=== PATIENT | male | born 1950 | race Caucasian/White ===

== ENCOUNTER 2017-01-12 07:41 | Inpatient (IN) | payer BC ==
[2017-01-12] MEDS ORDERED: NITROGLYCERIN OINT 1 INCH/GM PACKET TOPICAL STA (07:49)
[2017-01-12] MEDS ORDERED: ASPIRIN 81 MG CHEW PO STA (07:49)
--- NOTE | 2017-01-12 07:52 | ED ---
General Adult HPI - General Stated complaint: CHEST PAIN Time Seen by Provider: 01/12/17 07:44 Source: patient, EMS, RN notes reviewed Mode of arrival: EMS Limitations: no limitations - History of Present Illness Initial comments: Patient is a pleasant 66-year-old male presenting to the emergency department complaining of chest discomfort. Onset of symptoms was around 6:15 this point. Comfort is mild at this time following aspirin and nitroglycerin. Discomfort was sharp in the sternal region. No radiation. No associated dyspnea or nausea. Patient was sweaty. Patient did have similar symptoms around a year ago with negative evaluation. - Related Data Home Medications Medication Instructions Recorded Confirmed Atenolol [Tenormin] 12.5 mg PO BID 06/03/16 06/16/16 Cetirizine HCl [Zyrtec] 10 mg PO HS 06/03/16 06/16/16 Cholecalciferol [Vitamin D3] 2,000 unit PO DAILY 06/03/16 06/16/16 Fish Oil/Dha/Epa [Fish Oil 1,200 1 cap PO DAILY 06/03/16 06/16/16 mg Fish Oil] Fluticasone/Vilanterol [Breo 1 puff INHALATION RT-DAILY 06/03/16 06/16/16 Ellipta 100-25 Mcg Inhaler] Losartan/Hydrochlorothiazide 1 tab PO DAILY 06/03/16 06/16/16 [Hyzaar 100-25 Tablet] Sertraline [Zoloft] 100 mg PO DAILY 06/03/16 06/16/16 Previous Rx's Medication Instructions Recorded Acetaminophen-Codeine 300-30mg 1 tab PO Q6H PRN #30 tablet 06/04/16 [Tylenol #3] Aspirin 81 mg PO DAILY chew 06/04/16 Mag Hydrox/Al Hydrox/Simeth 30 ml PO Q4HR PRN #0 cup 06/04/16 [Maalox] Nitroglycerin Sl Tabs [Nitrostat] 0.4 mg SUBLINGUAL Q5M PRN #25 tab 06/04/16 Omeprazole [PriLOSEC] 40 mg PO BID #60 capsule. 06/04/16 Allergies Allergy/AdvReac Type Severity Reaction Status Date / Time pseudoephedrine sulfate AdvReac Rapid Verified 01/12/17 08:18 [From Claritin-D] Heart Rate Review of Systems ROS Statement: Those systems with pertinent positive or pertinent negative responses have been documented in the HPI. ROS Other: All systems not noted in ROS Statement are negative. Constitutional: Denies: fever Eyes: Denies: eye pain ENT: Denies: ear pain Respiratory: Denies: cough, dyspnea Cardiovascular: Reports: chest pain. Denies: palpitations Endocrine: Denies: fatigue Gastrointestinal: Denies: abdominal pain Genitourinary: Denies: urgency Musculoskeletal: Denies: back pain Skin: Denies: rash Neurological: Denies: weakness Past Medical History Past Medical History: Asthma, Hypertension, Osteoarthritis (OA), Sleep Apnea/ CPAP/BIPAP Additional Past Medical History / Comment(s): Fell off a ladder, had Left hip and shoulder injury History of Any Multi-Drug Resistant Organisms: None Reported Past Surgical History: Adenoidectomy, Tonsillectomy Additional Past Surgical History / Comment(s): carpal tunnel; pil cyst on tailbone X2 Past Anesthesia/Blood Transfusion Reactions: No Reported Reaction Additional Past Anesthesia/Blood Transfusion Reaction / Comment(s): states diff to arouse sometimes Past Psychological History: Depression Smoking Status: Former smoker Past Alcohol Use History: Occasional Past Drug Use History: None Reported - Past Family History Father Family Medical History: CVA/TIA Additional Family Medical History / Comment(s): Glaucoma. Severe circulation problems Mother Family Medical History: Cancer Additional Family Medical History / Comment(s): Glucoma General Exam Limitations: no limitations General appearance: alert, in no apparent distress Head exam: Present: atraumatic Eye exam: Present: normal appearance, PERRL ENT exam: Present: normal oropharynx Neck exam: Present: normal inspection Respiratory exam: Present: normal lung sounds bilaterally Cardiovascular Exam: Present: regular rate, normal rhythm Expanded Peripheral pulses: 2+: Radial (R), Radial (L), Dorsalis Pedis (R), Dorsalis Pedis (L) GI/Abdominal exam: Present: soft. Absent: tenderness Extremities exam: Present: normal inspection. 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 ND 188. QRS 82. QTC 490. QTC 446. Left axis. Minimal voltage criteria for LVH. No acute ST change. Motion artifact is present. Medical Decision Making - Medical Decision Making Patient reevaluated and resting comfortably in bed. Discomfort did start to increase however has improved now with nitroglycerin paste. Patient and family updated on results and concerns. Case discussed in detail with Dr. wallace, who will admit for Dr. Bradley. - Lab Data Result diagrams: 01/12/17 07:55 01/12/17 07:55 Lab Results 01/12/17 01/12/17 01/12/17 Range/Units 07:55 07:55 07:55 WBC 7.8 (3.8-10.6) k/uL RBC 5.75 (4.30-5.90) m/uL Hgb 17.2 (13.0-17.5) gm/dL Hct 47.7 (39.0-53.0) % MCV 82.9 (80.0-100.0) fL MCH 29.8 (25.0-35.0) pg MCHC 36.0 (31.0-37.0) g/dL RDW 14.6 (11.5-15.5) % Plt Count 172 (150-450) k/uL Neutrophils % 68 % Lymphocytes % 21 % Monocytes % 5 % Eosinophils % 4 % Basophils % 1 % Neutrophils # 5.3 (1.3-7.7) k/uL Lymphocytes # 1.6 (1.0-4.8) k/uL Monocytes # 0.4 (0-1.0) k/uL Eosinophils # 0.3 (0-0.7) k/uL Basophils # 0.1 (0-0.2) k/uL Hyperchromasia Slight PT (9.0-12.0) sec INR (<1.1) APTT (22.0-30.0) sec Sodium 140 (137-145) mmol/L Potassium 3.5 (3.5-5.1) mmol/L Chloride 104 (98-107) mmol/L Carbon Dioxide 25 (22-30) mmol/L Anion Gap 11 mmol/L BUN 19 (9-20) mg/dL Creatinine 1.06 (0.66-1.25) mg/dL Est GFR (MDRD) Af Amer >60 (>60 ml/min/1.73 sqM) Est GFR (MDRD) Non-Af >60 (>60 ml/min/1.73 sqM) Glucose 126 H (74-99) mg/dL Calcium 9.3 (8.4-10.2) mg/dL Magnesium 2.0 (1.6-2.3) mg/dL Total Bilirubin 1.0 (0.2-1.3) mg/dL AST 27 (17-59) U/L ALT 41 (21-72) U/L Alkaline Phosphatase 71 (38-126) U/L Total Creatine Kinase 159 (55-170) U/L CK-MB (CK-2) 2.1 (0.0-2.4) ng/mL CK-MB (CK-2) Rel Index 1.3 Troponin I 0.055 H* (0.000-0.034) ng/mL Total Protein 6.6 (6.3-8.2) g/dL Albumin 4.1 (3.5-5.0) g/dL 01/12/17 Range/Units 07:55 WBC (3.8-10.6) k/uL RBC (4.30-5.90) m/uL Hgb (13.0-17.5) gm/dL Hct (39.0-53.0) % MCV (80.0-100.0) fL MCH (25.0-35.0) pg MCHC (31.0-37.0) g/dL RDW (11.5-15.5) % Plt Count (150-450) k/uL Neutrophils % % Lymphocytes % % Monocytes % % Eosinophils % % Basophils % % Neutrophils # (1.3-7.7) k/uL Lymphocytes # (1.0-4.8) k/uL Monocytes # (0-1.0) k/uL Eosinophils # (0-0.7) k/uL Basophils # (0-0.2) k/uL Hyperchromasia PT 10.6 (9.0-12.0) sec INR 1.0 (<1.1) APTT 24.2 (22.0-30.0) sec Sodium (137-145) mmol/L Potassium (3.5-5.1) mmol/L Chloride (98-107) mmol/L Carbon Dioxide (22-30) mmol/L Anion Gap mmol/L BUN (9-20) mg/dL Creatinine (0.66-1.25) mg/dL Est GFR (MDRD) Af Amer (>60 ml/min/1.73 sqM) Est GFR (MDRD) Non-Af (>60 ml/min/1.73 sqM) Glucose (74-99) mg/dL Calcium (8.4-10.2) mg/dL Magnesium (1.6-2.3) mg/dL Total Bilirubin (0.2-1.3) mg/dL AST (17-59) U/L ALT (21-72) U/L Alkaline Phosphatase (38-126) U/L Total Creatine Kinase (55-170) U/L CK-MB (CK-2) (0.0-2.4) ng/mL CK-MB (CK-2) Rel Index Troponin I (0.000-0.034) ng/mL Total Protein (6.3-8.2) g/dL Albumin (3.5-5.0) g/dL - Radiology Data Radiology results: image reviewed (Chest x-ray shows no acute process.) Critical Care Time Critical Care Time: Yes Total Critical Care Time: 34 Disposition Clinical Impression: Unstable angina pectoris Disposition: ADMITTED IP TO THIS [facility] Condition: Serious Time of Disposition: 09:06
[2017-01-12 08:21] LABS: Basophils # (A) 0.1 k/uL (0-0.2); Basophils % (A) 1 %; CH 30.9; CHCM 37.4; Eosinophils # (A) 0.3 k/uL (0-0.7); Eosinophils % (A) 4 %; HCT 47.7 % (39.0-53.0); HDW 3.19; HGB 17.2 gm/dL (13.0-17.5); Hyperchromasia Slight; Luc # (Auto) 0.16; Luc % (Auto) 2; Lymphocytes # (A) 1.6 k/uL (1.0-4.8); Lymphocytes % (A) 21 %; MCH 29.8 pg (25.0-35.0); MCV 82.9 fL (80.0-100.0); Mean Platelet Volume 7.9; Monocytes # (A) 0.4 k/uL (0-1.0); Monocytes % (A) 5 %; Neutrophils # (A) 5.3 k/uL (1.3-7.7); Neutrophils % (A) 68 %; RBC 5.75 m/uL (4.30-5.90); RDW 14.6 % (11.5-15.5); WBC 7.8 k/uL (3.8-10.6); WBC (Perox) 7.71
[2017-01-12 08:27] LABS: Partial Thromboplastin Time 24.2 sec (22.0-30.0); Prothrombin Time 10.6 sec (9.0-12.0)
--- NOTE | 2017-01-12 08:30 | XR ---
EXAMINATION TYPE: XR chest 2V DATE OF EXAM: 01/12/2017 8:25 AM COMPARISON: 06/03/2016 INDICATION: Chest pain diaphoresis TECHNIQUE: Single frontal view of the chest is obtained. FINDINGS: The heart size is normal. The pulmonary vasculature is normal. The lungs are clear. IMPRESSION: 1. No acute pulmonary process.
[2017-01-12 08:38] LABS: ALT 41 U/L (21-72); AST 27 U/L (17-59); Alkaline Phosphatase 71 U/L (38-126); Anion Gap 11 mmol/L; Blood Urea Nitrogen 19 mg/dL (9-20); Calcium 9.3 mg/dL (8.4-10.2); Carbon Dioxide 25 mmol/L (22-30); Chloride 104 mmol/L (98-107); Glucose 126 mg/dL (74-99); Non-African American GFR(MDRD) >60 (>60 ml/min/1.73 sqM); Potassium 3.5 mmol/L (3.5-5.1); Sodium 140 mmol/L (137-145); Total Protein 6.6 g/dL (6.3-8.2)
[2017-01-12 08:54] LABS: Creatine Kinase MB 2.1 ng/mL (0.0-2.4)
[2017-01-12 09:02] LABS: Troponin I 0.055 ng/mL (0.000-0.034)
[2017-01-12] MEDS ORDERED: HEPARIN SODIUM,PORCINE 5,000 UNIT/ML 1 ML VIAL IV PRN (09:06)
[2017-01-12] MEDS ORDERED: HEPARIN SODIUM,PORCINE 5,000 UNIT/ML 1 ML VIAL IV ONE (09:06)
[2017-01-12] MEDS ORDERED: HEPARIN SODIUM,PORCINE/D5W PMX 25,000 UNIT in DEXTROSE/WATER 1 500ML.BAG IV SCH (09:15)
[2017-01-12] MEDS: NITROGLYCERIN SL TABS 0.4 MG TAB SUBLINGUAL PRN ×2 (09:23→09:28)
[2017-01-12] MEDS ORDERED: MORPHINE SULFATE 4 MG/ML SYRINGE IVP STA (09:34)
--- NOTE | 2017-01-12 09:41 | ED ---
Medical Decision Making - Medical Decision Making Repeat EKG at 9:33 AM shows sinus bradycardia at 49. CA 182. QRS 92. QT 468. QTC 422. Normal axis. Normal QRS. ST elevation inferior as well as leads V3 to V 6. Some depression in aVL and leads V1 and V2. STEMI alert has been called. Cardiology has been paged. At 944 Dr. Keita is present and evaluating patient. - Lab Data Result diagrams: 01/12/17 07:55 01/12/17 07:55 Lab Results 01/12/17 01/12/17 01/12/17 Range/Units 07:55 07:55 07:55 WBC 7.8 (3.8-10.6) k/uL RBC 5.75 (4.30-5.90) m/uL Hgb 17.2 (13.0-17.5) gm/dL Hct 47.7 (39.0-53.0) % MCV 82.9 (80.0-100.0) fL MCH 29.8 (25.0-35.0) pg MCHC 36.0 (31.0-37.0) g/dL RDW 14.6 (11.5-15.5) % Plt Count 172 (150-450) k/uL Neutrophils % 68 % Lymphocytes % 21 % Monocytes % 5 % Eosinophils % 4 % Basophils % 1 % Neutrophils # 5.3 (1.3-7.7) k/uL Lymphocytes # 1.6 (1.0-4.8) k/uL Monocytes # 0.4 (0-1.0) k/uL Eosinophils # 0.3 (0-0.7) k/uL Basophils # 0.1 (0-0.2) k/uL Hyperchromasia Slight PT (9.0-12.0) sec INR (<1.1) APTT (22.0-30.0) sec Sodium 140 (137-145) mmol/L Potassium 3.5 (3.5-5.1) mmol/L Chloride 104 (98-107) mmol/L Carbon Dioxide 25 (22-30) mmol/L Anion Gap 11 mmol/L BUN 19 (9-20) mg/dL Creatinine 1.06 (0.66-1.25) mg/dL Est GFR (MDRD) Af Amer >60 (>60 ml/min/1.73 sqM) Est GFR (MDRD) Non-Af >60 (>60 ml/min/1.73 sqM) Glucose 126 H (74-99) mg/dL Calcium 9.3 (8.4-10.2) mg/dL Magnesium 2.0 (1.6-2.3) mg/dL Total Bilirubin 1.0 (0.2-1.3) mg/dL AST 27 (17-59) U/L ALT 41 (21-72) U/L Alkaline Phosphatase 71 (38-126) U/L Total Creatine Kinase 159 (55-170) U/L CK-MB (CK-2) 2.1 (0.0-2.4) ng/mL CK-MB (CK-2) Rel Index 1.3 Troponin I 0.055 H* (0.000-0.034) ng/mL Total Protein 6.6 (6.3-8.2) g/dL Albumin 4.1 (3.5-5.0) g/dL 01/12/17 Range/Units 07:55 WBC (3.8-10.6) k/uL RBC (4.30-5.90) m/uL Hgb (13.0-17.5) gm/dL Hct (39.0-53.0) % MCV (80.0-100.0) fL MCH (25.0-35.0) pg MCHC (31.0-37.0) g/dL RDW (11.5-15.5) % Plt Count (150-450) k/uL Neutrophils % % Lymphocytes % % Monocytes % % Eosinophils % % Basophils % % Neutrophils # (1.3-7.7) k/uL Lymphocytes # (1.0-4.8) k/uL Monocytes # (0-1.0) k/uL Eosinophils # (0-0.7) k/uL Basophils # (0-0.2) k/uL Hyperchromasia PT 10.6 (9.0-12.0) sec INR 1.0 (<1.1) APTT 24.2 (22.0-30.0) sec Sodium (137-145) mmol/L Potassium (3.5-5.1) mmol/L Chloride (98-107) mmol/L Carbon Dioxide (22-30) mmol/L Anion Gap mmol/L BUN (9-20) mg/dL Creatinine (0.66-1.25) mg/dL Est GFR (MDRD) Af Amer (>60 ml/min/1.73 sqM) Est GFR (MDRD) Non-Af (>60 ml/min/1.73 sqM) Glucose (74-99) mg/dL Calcium (8.4-10.2) mg/dL Magnesium (1.6-2.3) mg/dL Total Bilirubin (0.2-1.3) mg/dL AST (17-59) U/L ALT (21-72) U/L Alkaline Phosphatase (38-126) U/L Total Creatine Kinase (55-170) U/L CK-MB (CK-2) (0.0-2.4) ng/mL CK-MB (CK-2) Rel Index Troponin I (0.000-0.034) ng/mL Total Protein (6.3-8.2) g/dL Albumin (3.5-5.0) g/dL Disposition Clinical Impression: ST elevation myocardial infarction (STEMI) Disposition: ADMITTED IP TO THIS HOSP Condition: Critical
[2017-01-12] MEDS ORDERED: NITROGLYCERIN-D5W PMX 50 MG in DEXTROSE/WATER 1 250ML.BAG IV ONE ×2 (09:49→10:00)
--- NOTE | 2017-01-12 09:57 | P.CRDCN ---
History of Present Illness Consult date: 01/12/17 History of present illness: This is a 66-year-old gentleman with history of hypertensive cardiac vascular disease who was seen in May 2016 and hospital with chest pains. At the time symptoms are suggestive of either angina or peptic ulcer disease. Patient was supposed to have a stress test as an outpatient but did not have one done. He did have a GI evaluation and also gallbladder evaluation. Today patient came to the hospital with complaints of epigastric and lower sternal pain which was recurrent. His initial EKG at 7:00 did not reveal any acute changes however repeat EKG at 9:00 showed evidence of inferior wall [place] .Patient advised to have a cardiac catheterization for definitive diagnosis. Further recommendation will depend upon the findings on the cardiac cath. Review of Systems Not obtained Past Medical History Past Medical History: Asthma, Hypertension, Osteoarthritis (OA), Sleep Apnea/ CPAP/BIPAP Additional Past Medical History / Comment(s): Fell off a ladder, had Left hip and shoulder injury History of Any Multi-Drug Resistant Organisms: None Reported Past Surgical History: Adenoidectomy, Tonsillectomy Additional Past Surgical History / Comment(s): carpal tunnel; pil cyst on tailbone X2 Past Anesthesia/Blood Transfusion Reactions: No Reported Reaction Additional Past Anesthesia/Blood Transfusion Reaction / Comment(s): states diff to arouse sometimes Past Psychological History: Depression Smoking Status: Former smoker Past Alcohol Use History: Occasional Past Drug Use History: None Reported - Past Family History Father Family Medical History: CVA/TIA Additional Family Medical History / Comment(s): Glaucoma. Severe circulation problems Mother Family Medical History: Cancer Additional Family Medical History / Comment(s): Glucoma Medications and Allergies Home Medications Medication Instructions Recorded Confirmed Type Cetirizine HCl [Zyrtec] 10 mg PO HS 06/03/16 01/12/17 History Cholecalciferol [Vitamin D3] 5,000 unit PO DAILY 06/03/16 01/12/17 History Fish Oil/Dha/Epa [Fish Oil 1,200 1 cap PO DAILY 06/03/16 01/12/17 History mg Fish Oil] Fluticasone/Vilanterol [Breo 1 puff INHALATION RT-DAILY 06/03/16 01/12/17 History Ellipta 100-25 Mcg Inhaler] Losartan/Hydrochlorothiazide 1 tab PO DAILY 06/03/16 01/12/17 History [Hyzaar 100-25 Tablet] Sertraline [Zoloft] 100 mg PO DAILY 06/03/16 01/12/17 History Albuterol Inhaler [Ventolin Hfa 1 - 2 puff INHALATION RT-Q6H PRN 01/12/17 History Inhaler] Atenolol [Tenormin] 12.5 mg PO DAILY 01/12/17 01/12/17 History Diclofenac Sodium [Voltaren] 75 mg PO BID PRN 01/12/17 01/12/17 History Levothyroxine Sodium [Synthroid] 25 mcg PO DAILY 01/12/17 01/12/17 History Loratadine [Claritin] 10 mg PO DAILY PRN 01/12/17 01/12/17 History Omeprazole [PriLOSEC] 40 mg PO DAILY 01/12/17 01/12/17 History Allergies Allergy/AdvReac Type Severity Reaction Status Date / Time pseudoephedrine sulfate AdvReac Rapid Verified 01/12/17 08:18 [From Claritin-D] Heart Rate Physical Exam Vitals: Vital Signs Temp Pulse Resp BP Pulse Ox 01/12/17 09:42 45 L 22 163/94 96 01/12/17 09:30 48 L 16 158/91 97 01/12/17 09:22 44 L 18 197/107 01/12/17 09:11 97.8 F 48 L 16 153/79 92 L GENERAL EXAM: Patient is alert and oriented and doesn't appear to be in any acute distress HEENT: Normocephalic. Normal reaction of pupils, equal size, normal range of extraocular motion. No erythema or exudates in the throat. NECK: No masses, no nuchal rigidity. CHEST: No chest wall deformity. LUNGS: Equal air entry with no crackles or wheeze. HEART: S1 and S2 normal with no audible mumurs or gallops. Regular rhythm, femorals equal on both sides.. ABDOMEN: No hepatosplenomegaly, normal bowel sounds, no guarding or rigidity. SKIN: No rashes CENTRAL NERVOUS SYSTEM: No focal deficits. EXTREMITIES: No cyanosis, clubbing or edema. Results 01/12/17 07:55 01/12/17 07:55 Current Medications Generic Name Dose Route Start Last Admin Trade Name Freq PRN Reason Stop Dose Admin Aspirin 325 mg 01/13/17 09:00 Aspirin PO DAILY [facility] Heparin Sodium (Porcine) 0 unit 01/12/17 09:06 Heparin IV Q6HR PRN Low PTT Protocol Heparin Sodium/Dextrose 25,000 500 mls @ 20 mls/hr 01/12/17 09:15 01/12/17 09 :24 unit/ IV Solution IV 8.999 units/kg/hr .Q24H JAEL 20 mls/hr Protocol Administration 8.999 UNITS/KG/HR Nitroglycerin/Dextrose 50 mg/ 250 mls @ 1.5 mls/hr 01/12/17 09:49 01/12/17 09 :50 IV Solution IV 01/13/17 09:48 5 mcg/min .Q24H ONE 1.5 mls/hr Protocol Administration 5 MCG/MIN Nitroglycerin 1 inch 01/12/17 12:00 Nitro-Bid Oint TOPICAL Q6HR [facility] Nitroglycerin 0.4 mg 01/12/17 09:06 01/12/17 09:28 Nitrostat SUBLINGUAL 0.4 mg Q5M PRN Administration Chest Pain Sodium Chloride 10 ml 01/12/17 21:00 Saline Flush IV BID [facility] EKG Interpretations (text) Sinus rhythm with inferior wall WA Assessment and Plan (1) ST elevation myocardial infarction (STEMI) Status: Acute (2) Hypertension Status: Acute (3) Hypokalemia Status: Acute Plan: Procedure with cardiac catheterization with intention for primary intervention. Further examination depend upon the findings on the cath.
[2017-01-12] MEDS ORDERED: SODIUM CHLORIDE 0.9% 1,000 ML IV ONE (10:00)
[2017-01-12] MEDS ORDERED: SODIUM CHLORIDE 0.9% IV ONE (10:00)
[2017-01-12] MEDS ORDERED: ABCIXIMAB IV ONE (10:00)
[2017-01-12] MEDS ORDERED: LIDOCAINE 2% INJ 20 MG/ML SQ ONE ×2 (10:09→10:10)
[2017-01-12] MEDS: HYDROmorphone 2 MG/ML 1 ML SYRINGE IV ONE ×2 (10:13→10:54)
[2017-01-12] MEDS ORDERED: BIVALIRUDIN BOLUS 250 MG/50 ML IV ONE (10:13)
[2017-01-12] MEDS ORDERED: ATROPINE SULFATE 0.1 MG/ML 10ML SYRINGE IV ONE (10:14)
[2017-01-12] MEDS ORDERED: BIVALIRUDIN 250 MG in SODIUM CHLORIDE 0.9% 50 ML IV ONE (10:25)
[2017-01-12] MEDS: MIDAZOLAM 2 MG/2 ML VIAL IV ONE ×2 (10:25→10:38)
[2017-01-12] MEDS ORDERED: PRASUGREL 10 MG TAB PO ONE (10:28)
--- NOTE | 2017-01-12 10:31 | P.PCN ---
Date of Procedure: 01/12/17 Preoperative Diagnosis: Acute inferior wall myocardial infarction Postoperative Diagnosis: Total occlusion of the proximal RCA Procedure(s) Performed: Left heart catheterization without left ventriculography Description of Procedure: HISTORY: This is a 66-year-old gentleman with a history of hypertension and family history of ischemic heart disease, who came to the hospital with complaints of chest pain and EKG evidence of inferior wall AR. Patient is advised to have cardiac catheterization with the intention for primary intervention CONSENT:I have discussed the risks, benefits and alternative therapies for the above-mentioned procedure and for both sedation/analgesia as well as necessary blood product administration, if indicated, as they pertain to this patient. The patient has indicated understanding and acceptance of the risks and procedures discussed. PROCEDURE: Patient was brought to the lab in a fasting state. Patient was given some IV sedation. The right groin is infiltrated with lidocaine and right femoral artery was entered using Seldinger technique. A 6-Indonesian catheter was left in place and selective coronary arteriography was performed. Patient tolerated the procedure well. Patient is found to have total occlusion of proximal RCA ventriculography have stent placement by Dr. Godfrey. HEMODYNAMICS: The aortic pressure is 170/90. SELECTIVE CORONARY ARTERIOGRAPHY: LEFT MAIN: Short and patent THE LEFT ANTERIOR DESCENDING CORONARY ARTERY: This is a good caliber vessel with several diagonal branches. Appears to be free of any significant occlusive disease THE LEFT CIRCUMFLEX AND IS CORONARY ARTERY: This is a codominant vessel giving rise to good-sized OM branches and PLV branch. Appears to be free of any significant occlusive disease THE RIGHT CORONARY ARTERY:. This is a codominant vessel which is totally occluded in the proximal portion LEFT VENTRICULOGRAPHY: Not performed FINAL IMPRESSION: #1. Acute inferior wall AR #2. Total occlusion of the RCA # 3. Mild disease in the rest of the coronary system PLAN: Stent placement of the RCA PROGNOSIS: Fair
[2017-01-12] MEDS ORDERED: niCARdipine Syringe (1,000 mcg/10 mL) INTRACORON ONE (10:48)
[2017-01-12] MEDS ORDERED: IOHEXOL 350 MG/ML 100 ML BOTTLE INJ ONE (10:54)
[2017-01-12] MEDS ORDERED: LORATADINE 10 MG TAB PO PRN (11:09)
[2017-01-12] MEDS ORDERED: ETODOLAC 400 MG TAB PO PRN (11:09)
[2017-01-12] MEDS ORDERED: MAG HYDROX/AL HYDROX/SIMETH 30 ML CUP PO PRN ×2 (11:09→11:11)
[2017-01-12] MEDS ORDERED: NITROGLYCERIN SL TABS 0.4 MG TAB SUBLINGUAL PRN ×2 (11:09→11:11)
[2017-01-12] MEDS ORDERED: ZOLPIDEM 5 MG TAB PO PRN (11:11)
[2017-01-12] MEDS ORDERED: RX INFO: IV CONTRAST WAS GIVEN 1 EACH MISC MISCELLANE PRN (11:11)
[2017-01-12] MEDS ORDERED: ATROPINE SULFATE 0.1 MG/ML 10ML SYRINGE IV PRN (11:11)
[2017-01-12] MEDS ORDERED: SODIUM CHLORIDE 0.9% 1,000 ML IV SCH (11:15)
[2017-01-12] MEDS ORDERED: NITROGLYCERIN OINT 1 INCH/GM PACKET TOPICAL SCH (12:00)
[2017-01-12 17:39] LABS: Glucose,Whole Blood 140 mg/dL (75-99)
[2017-01-12] MEDS: BENZOCAINE/MENTHOL LOZENG 1 EACH LOZENGE MUCOUS MEM PRN ×2 (19:07→20:48)
[2017-01-12] MEDS: SYMBICORT 80-4.5 MCG INHALER INHALATION SCH (19:09)
[2017-01-12] MEDS: LORATADINE 10 MG TAB PO SCH (20:48)
[2017-01-12] MEDS: ATORVASTATIN 80 MG TAB PO SCH (20:48)
[2017-01-13 04:27] VITALS: RESP 18
[2017-01-13 06:33] LABS: Basophils # (A) 0.1 k/uL (0-0.2); Basophils % (A) 1 %; CH 30.2; CHCM 35.9; Eosinophils # (A) 0.3 k/uL (0-0.7); Eosinophils % (A) 4 %; HDW 3.16; HGB 16.2 gm/dL (13.0-17.5); Luc # (Auto) 0.11; Luc % (Auto) 1; Lymphocytes # (A) 1.7 k/uL (1.0-4.8); Lymphocytes % (A) 20 %; MCH 29.7 pg (25.0-35.0); MCHC 35.2 g/dL (31.0-37.0); MCV 84.4 fL (80.0-100.0); Monocytes # (A) 0.4 k/uL (0-1.0); Monocytes % (A) 5 %; Neutrophils # (A) 5.7 k/uL (1.3-7.7); Neutrophils % (A) 69 %; RBC 5.44 m/uL (4.30-5.90); RDW 14.5 % (11.5-15.5); WBC 8.2 k/uL (3.8-10.6); WBC (Perox) 8.52
[2017-01-13] MEDS: LEVOTHYROXINE 25 MCG TAB PO SCH (06:34)
[2017-01-13] MEDS: PANTOPRAZOLE 40 MG TABLET PO SCH (06:34)
[2017-01-13 06:42] LABS: Anion Gap 7 mmol/L; Blood Urea Nitrogen 17 mg/dL (9-20); Calcium 9.1 mg/dL (8.4-10.2); Carbon Dioxide 32 mmol/L (22-30); Chloride 100 mmol/L (98-107); Cholesterol 164 mg/dL (<200); Glucose 108 mg/dL (74-99); HDL Cholesterol 31 mg/dL (40-60); Magnesium 2.1 mg/dL (1.6-2.3); Non-African American GFR(MDRD) >60 (>60 ml/min/1.73 sqM); Phosphorous 3.1 mg/dL (2.5-4.5); Sodium 139 mmol/L (137-145); Triglycerides 183 mg/dL (<150)
[2017-01-13 07:06] LABS: Creatine Kinase MB 35.4 ng/mL (0.0-2.4); Troponin I 10.8 ng/mL (0.000-0.034)
[2017-01-13] MEDS: LOSARTAN-HCTZ 50-12.5 MG 1 EACH TAB PO SCH (07:50)
[2017-01-13] MEDS: ATENOLOL 12.5 MG TAB PO SCH (07:50)
[2017-01-13] MEDS: SERTRALINE 100 MG TAB PO SCH (07:50)
[2017-01-13] MEDS: CHOLECALCIFEROL 1,000 UNIT TAB PO SCH (07:50)
[2017-01-13] MEDS ORDERED: NON-FORMULARY DRUG (Fish Oil/Dha/Epa [Fish Oil 1,200 Mg Fish Oil] 1 CAP) PO SCH (09:00)
[2017-01-13] MEDS ORDERED: ASPIRIN 325 MG TAB PO SCH (09:00)
--- NOTE | 2017-01-13 09:41 | ECHOF ---
Referral Reason:Chest pain and elevated troponin MEASUREMENTS -------- HEIGHT: 180.3 cm WEIGHT: 111.1 kg BP: IVSd: 1.4 cm (0.6 - 1.1) LVIDd: 3.1 cm (3.9 - 5.3) LVPWd: 1.4 cm (0.6 - 1.1) IVSs: 1.8 cm LVIDs: 2.9 cm LVPWs: 1.4 cm Ao Diam: 3.0 cm (2.0 - 3.7) AV Cusp: 2.3 cm (1.5 - 2.6) LA Diam: 3.3 cm (2.7 - 3.8) MV EXCURSION: 18.807 mm (> 18.000) MV EF SLOPE: 84 mm/s (70 - 150) EPSS: 3.0 cm MV E Jerrod: 0.73 m/s MV DecT: 242 ms MV A Jerrod: 0.29 m/s MV E/A Ratio: 2.55 RAP: 5.00 mmHg RVSP: 9.27 mmHg FINDINGS -------- Sinus rhythm. This was a technically good study. There is moderate concentric left ventricular hypertrophy. Overall left ventricular systolic function is mild-moderately impaired with, an EF between 40 - 45 %. Inferiorlateral Hypokinesis The right ventricle is normal in size and function. The left atrial size is normal. The right atrium is normal in size. The aortic valve is trileaflet, and appears structurally normal. No aortic stenosis or regurgitation. There is trace mitral regurgitation. Trace tricuspid regurgitation present. The right ventricular systolic pressure, as measured by Doppler, is 9.27mmHg. Pulmonic valve appears structurally normal. The aortic root size is normal. The pericardium is normal. CONCLUSIONS -------- 1. Sinus rhythm. 2. There is trace mitral regurgitation. 3. Trace tricuspid regurgitation present. 4. The right ventricular systolic pressure, as measured by Doppler, is 9.27mmHg. 5. Pulmonic valve appears structurally normal. 6. The aortic root size is normal. 7. The pericardium is normal. 8. This was a technically good study. 9. There is moderate concentric left ventricular hypertrophy. 10. Overall left ventricular systolic function is mild-moderately impaired with, an EF between 40 - 45 %. 11. Inferiorlateral Hypokinesis 12. The right ventricle is normal in size and function. 13. The left atrial size is normal. 14. The right atrium is normal in size. 15. The aortic valve is trileaflet, and appears structurally normal. No aortic stenosis or regurgitation. SKIRT MAKER: Vianey Campos RDCS
[2017-01-13] MEDS: SYMBICORT 80-4.5 MCG INHALER INHALATION SCH ×2 (09:46→20:31)
[2017-01-13] MEDS: ASPIRIN 81 MG CHEW PO SCH (10:05)
--- NOTE | 2017-01-13 10:51 | PTCA ---
DATE OF SERVICE: 01/12/2017 PERFORMING PHYSICIAN: Janes Harris MD, mail delivery supervisor. PROCEDURE PERFORMED: 1. Aspiration thrombectomy from the right coronary artery. 2. Balloon angioplasty of the right coronary artery. 3. Successful stenting of the ( ) using 4.5 x 18 mm bare metal stent with a good angiographic result. INDICATION: This is a pleasant 66-year-old gentleman who sees Dr. Keita in the office as an outpatient, who presented to the hospital with chest discomfort and was diagnosed with acute inferior ST elevation myocardial infarction. He underwent a heart catheterization by Dr. Keita and was found to have occluded right coronary artery which seems to be an acute occlusion. The decision was made toward percutaneous coronary intervention. APPROACH: Right common femoral artery. COMPLICATIONS: None. LEVEL OF SEDATION: Moderate with a sedation length of about an hour. PROCEDURE DESCRIPTION: After diagnostic heart catheterization was performed by Dr. Keita, the decision was made toward emergent percutaneous coronary intervention. Anticoagulation was initiated using Angiomax. Subsequently, I took JR4 guide and the RCA was engaged. I crossed the acute total occlusion of the proximal RCA using a whisper wire. Subsequently, I did PTCA ballooning using 2.5 x 12 mm balloon. After that, I did aspiration thrombectomy from the right coronary artery and I was unable to extract any clots from the RCA. After that I did angioplasty using 3.5 x 12 mm balloon. I was able to restore the flow in the RCA after the second balloon angioplasty using a 3.5 mm balloon. Subsequently, I did deploy 4.5 x 18 mm bare metal stent, where the stent was positioned under fluoroscopy guidance and deployed under its nominal pressure. The following angiogram showed good angiographic result with a good flow in the RCA. The procedure was completed without any complication. POSTPROCEDURE MANAGEMENT: 1. Dual antiplatelet therapy. 2. Risk factor modification. 3. Follow up with the patient.
[2017-01-13] MEDS ORDERED: ACETAMINOPHEN TAB 325 MG TAB PO PRN ×2 (10:52→11:10)
[2017-01-13] MEDS: PRASUGREL 10 MG TAB PO SCH (11:11)
--- NOTE | 2017-01-13 11:38 | HP ---
DATE OF ADMISSION: 01/12/2017 PRESENTING COMPLAINT: Chest pain. HISTORY OF PRESENTING COMPLAINT: This is a very pleasant 66-year-old patient I came to see twice yesterday but patient has gone to lab engineer. Patient is followed by Dr. Bradley. Patient's chronic stable medical conditions include asthma, GERD, hypertension, osteoarthritis, sleep apnea, hypothyroid. Yesterday morning developed some chest pain, decided to go to work. There he became clammy then the pain went into the left shoulder, not feeling well. His work ( ) called 911. EMS gave him nitroglycerin to which he did feel a bit better. Patient then ruled in for an acute OR with ST elevation in inferior leads. Patient taken to the cardiac lab engineer when stenting of the RCA was carried out. Currently the patient is chest pain free. No shortness of breath. He has been out of bed to the bathroom. REVIEW OF SYSTEMS: CONSTITUTIONAL: None. HEENT: None. RESPIRATORY: None. CARDIOVASCULAR: As above. GASTROINTESTINAL: None. GENITOURINARY: None. MUSCULOSKELETAL: Pain in the joints. DERMATOLOGICAL: None. HEMATOLOGICAL: None. LYMPHATIC: None. PSYCHIATRY: None. NEUROLOGICAL: None. Past history of as asthma, GERD, hypertension, osteoarthritis, sleep apnea, hypothyroid, kidney stones, pneumonias in the past, elevated liver enzymes. PAST SURGICAL HISTORY: Adenoidectomy, tonsillectomy, bilateral carpal tunnel release, circumcision, vasectomy. SOCIAL HISTORY: . Works at [employer]. Smoked [id number] to 1984. Alcohol occasionally. Family history of colon cancer and eye disorder. HOME MEDICATIONS: 1. Claritin 10 mg daily p.r.n. 2. Zoloft 1 mg p.o. daily. 3. Prilosec 40 mg p.o. daily. 4. Nitrostat 0.4 sublingual q.5 p.r.n. 5. Maalox 30 mL p.o. q.4 p.r.n. 6. Hyzaar 100/25 one tablet p.o. daily. 7. Synthroid 25 mcg p.o. daily. 8. Breo Ellipta 1 puff daily. 9. Fish oil 1 capsule p.o. daily. 10. Voltaren 75 mg p.o. b.i.d. p.r.n. 11. Vitamin D3, 5000 units p.o. daily. 12. Zyrtec 10 mg p.o. q.h.s. 13. Tenormin 12.5 p.o. daily. 14. Aspirin 81 mg p.o. daily. 15. Ventolin HFA 1 to 2 puffs q.6 p.r.n. Allergies to CLARITIN-D, no true allergy causing only heart rate. ON EXAMINATION: VITAL SIGNS ON PRESENTATION: Temperature 98.3, pulse 49, respiration 18, blood pressure 169/84, pulse ox 96% on 2 L. GENERAL APPEARANCE: Well built, BMI of 37. Lying on the bed, comfortable. EYES: Pupils equal. Conjunctivae normal. HENT: Oral cavity normal. NECK: JVD is not raised. Mass not palpable. RESPIRATORY: Effort normal. LUNGS: Fair air entry. CARDIOVASCULAR: First and second sounds normal. No edema. ABDOMEN: Soft, nontender. Liver and spleen not palpable. LYMPHATIC: No lymph node palpable in neck or axillae. PSYCHIATRY: Alert and oriented x3. Mood affect normal. NEUROLOGICAL: Pupils equal. Cranial nerves grossly intact. Power and sensation grossly intact. INVESTIGATIONS: White count 7.8, hemoglobin 17.2, platelets 172. Potassium 3.5. BUN and creatinine normal. Troponin 0.055 and 10.8. LDL is 96. EKG shows ST elevation inferior leads. ASSESSMENT: 1. Acute ST elevation myocardial infarction with emergent stent to the right coronary artery. 2. Intermittent asthma. 3. Gastroesophageal reflux disease. 4. Essential hypertension. 5. Primary osteoarthritis of multiple joints. 6. Sleep apnea. 7. Hypothyroidism. 8. Depression, not otherwise specified. PLAN: Patient is status post intervention to the RCA. Patient is on aspirin, beta laurel, Lipitor. Patient encouraged to ambulate and see how he does. Patient also on Effient. Care was discussed with the patient.
--- NOTE | 2017-01-13 15:58 | P.PN ---
Subjective Principal diagnosis: STEMI This is a 66-year-old gentleman with a history of hypertensive cardiovascular disease. He was previously seen in the hospital beginning of this year with complaints of chest discomfort at that time symptoms were suggestive of either angina or peptic ulcer disease. The patient was recommended to undergo stress testing as an outpatient but failed to follow-up. He did undergo GI evaluation. The patient presented to the hospital this admission after going to work and noting chest discomfort that radiated to his left arm with walking. Upon presentation his initial EKG did not reveal any acute changes however repeat EKG at 9 AM at which time patient complained of severe chest discomfort showed evidence of ST elevated inferior wall [place] and patient was taken to the CVL. Patient underwent cardiac catheterization by Dr. Keita and aspiration thrombectomy from the right coronary artery with balloon angioplasty and successful stenting done by Dr. Harris. Upon examination, patient is resting comfortably in bed. He is pain-free. He has been encouraged to increase his activity level. Objective - Vital Signs Vital signs: Vital Signs Temp 97.4 F L 01/13/17 12:00 Pulse 56 L 01/13/17 12:00 Resp 18 01/13/17 12:00 BP 146/77 01/13/17 12:00 Pulse Ox 98 01/13/17 12:00 Intake & Output 01/12/17 01/13/17 01/13/17 18:59 06:59 18:59 Intake Total 1050 410 810 Output Total 800 1300 825 Balance 250 -890 -15 Weight 117 kg Intake: IV 1050 110 10 0.9% NS FLUSH 10 mL 10 10 Sodium Chloride 0.9% 1, 800 100 000 ml @ 100 mls/hr IV . Q10H JAEL Rx#:[id number] Oral 300 800 Output: Urine 800 1300 825 Other: Voiding Method Urinal Urinal Toilet Urinal # Voids 0 - Exam PHYSICAL EXAMINATION: HEENT: Head is atraumatic, normocephalic. Pupils equal, round. Neck is supple. There is no elevated jugular venous pressure. HEART EXAMINATION: Heart sounds regular, S1 and S2 normal. No murmur or gallop heard. CHEST EXAMINATION: Lungs are clear to auscultation and precussion. No chest wall tenderness is noted on palpation or with deep breathing. ABDOMEN: Soft, nontender. Bowel sounds are heard. No organomegaly noted. EXTREMITIES: 2+ peripheral pulses with no evidence of peripheral edema and no calf tenderness noted. Right groin puncture site soft without ecchymosis or hematoma.. NEUROLOGIC patient is awake, alert and oriented x3. . - Labs CBC & Chem 7: 01/13/17 05:39 01/13/17 05:39 Labs: Abnormal Lab Results - Last 24 Hours (Table) 01/12/17 01/13/17 01/13/17 Range/Units 17:37 05:39 05:39 Carbon Dioxide 32 H (22-30) mmol/L Glucose 108 H (74-99) mg/dL POC Glucose (mg/dL) 140 H (75-99) mg/dL Total Creatine Kinase 495 H (55-170) U/L CK-MB (CK-2) 35.4 H* (0.0-2.4) ng/mL Troponin I 10.800 H* (0.000-0.034) ng/mL Triglycerides 183 H (<150) mg/dL HDL Cholesterol 31 L (40-60) mg/dL Assessment and Plan Plan: #[address] elevation inferior wall [place] #2 hypertension #3 hypokalemia, resolved From cardiac standpoint, increase patient's activity. If patient remains without chest discomfort we anticipate probable discharge in the next 24-48 hours. Continue aspirin 81 mg by mouth daily, atenolol 12.5 mg by mouth daily, atorvastatin 80 mg by mouth daily at bedtime, Hyzaar, and effient. We will add amlodipine 5mg daily. Further recommendations to follow. HOME HEALTH ADMINISTRATOR note has been reviewed, I agree with a documented findings and plan of care. Patient was seen and examined.
[2017-01-13] MEDS: amLODIPine 5 MG TAB PO SCH (18:38)
[2017-01-13] MEDS: ATORVASTATIN 80 MG TAB PO SCH (21:36)
[2017-01-13] MEDS: LORATADINE 10 MG TAB PO SCH (21:36)
[2017-01-14] MEDS: LEVOTHYROXINE 25 MCG TAB PO SCH (06:54)
[2017-01-14] MEDS: PANTOPRAZOLE 40 MG TABLET PO SCH (06:54)
[2017-01-14] MEDS: ASPIRIN 81 MG CHEW PO SCH (08:41)
[2017-01-14] MEDS: amLODIPine 5 MG TAB PO SCH (08:41)
[2017-01-14] MEDS: LOSARTAN-HCTZ 50-12.5 MG 1 EACH TAB PO SCH (08:42)
[2017-01-14] MEDS: CHOLECALCIFEROL 1,000 UNIT TAB PO SCH (08:42)
[2017-01-14] MEDS: PRASUGREL 10 MG TAB PO SCH (08:42)
[2017-01-14] MEDS: SERTRALINE 100 MG TAB PO SCH (08:42)
[2017-01-14] MEDS: SYMBICORT 80-4.5 MCG INHALER INHALATION SCH (08:44)
[2017-01-14 08:48] VITALS: TEMP 97.5
[2017-01-14] MEDS: ATENOLOL 12.5 MG TAB PO SCH (12:50)
[2017-01-14 14:05] VITALS: BP 141/80; PULSE 64
--- NOTE | 2017-01-14 15:09 | P.PN ---
Subjective Principal diagnosis: STEMI This is a 66-year-old gentleman with a history of hypertensive cardiovascular disease. He was previously seen in the hospital beginning of this year with complaints of chest discomfort at that time symptoms were suggestive of either angina or peptic ulcer disease. The patient was recommended to undergo stress testing as an outpatient but failed to follow-up. He did undergo GI evaluation. The patient presented to the hospital this admission after going to work and noting chest discomfort that radiated to his left arm with walking. Upon presentation his initial EKG did not reveal any acute changes however repeat EKG at 9 AM at which time patient complained of severe chest discomfort showed evidence of ST elevated inferior wall [place] and patient was taken to the CVL. Patient underwent cardiac catheterization by Dr. Keita and aspiration thrombectomy from the right coronary artery with balloon angioplasty and successful stenting done by Dr. Harris. Upon examination, patient is resting comfortably in bed. He is pain-free. He has been walking in the halls without difficulties. Objective - Vital Signs Vital signs: Vital Signs Temp 97.5 F L 01/14/17 08:00 Pulse 64 01/14/17 12:00 Resp 18 01/14/17 04:00 BP 141/80 01/14/17 12:00 Pulse Ox 94 L 01/14/17 12:00 Intake & Output 01/13/17 01/14/17 01/14/17 18:59 06:59 18:59 Intake Total 810 10 Output Total 1225 800 Balance -415 -800 10 Weight 117 kg Intake: IV 10 10 0.9% NS FLUSH 10 mL 10 10 Oral 800 Output: Urine 1225 800 Other: Voiding Method Toilet Toilet Urinal Urinal # Voids 1 - Exam PHYSICAL EXAMINATION: HEENT: Head is atraumatic, normocephalic. Pupils equal, round. Neck is supple. There is no elevated jugular venous pressure. HEART EXAMINATION: Heart sounds regular, S1 and S2 normal. No murmur or gallop heard. CHEST EXAMINATION: Lungs are clear to auscultation and precussion. No chest wall tenderness is noted on palpation or with deep breathing. ABDOMEN: Soft, nontender. Bowel sounds are heard. No organomegaly noted. EXTREMITIES: 2+ peripheral pulses with no evidence of peripheral edema and no calf tenderness noted. Right groin puncture site soft without ecchymosis or hematoma.. NEUROLOGIC patient is awake, alert and oriented x3. . - Labs CBC & Chem 7: 01/14/17 05:50 01/13/17 05:39 Labs: Abnormal Lab Results - Last 24 Hours (Table) 01/14/17 Range/Units 05:50 Plt Count 146 L (150-450) k/uL Assessment and Plan Plan: #[address] elevation inferior wall [place] #2 hypertension #3 hypokalemia, resolved From cardiac standpoint, medications were reviewed in the continue the same. The patient understands the need for dual antiplatelet therapy and importance of denies any signs of bleeding. Will be seen in the office by Dr. Keita in one week for follow-up. EVENT SALES ASSISTANT note has been reviewed, I agree with a documented findings and plan of care. Patient was seen and examined.
--- NOTE | 2017-01-15 14:28 | DS ---
DATE OF ADMISSION: 01/12/2017 DATE OF DISCHARGE: 01/14/2017 FINAL DIAGNOSES: 1. Acute ST elevation myocardial infarction in the inferior wall with emergent stent to the right coronary artery. 2. Intermittent asthma. 3. Gastroesophageal reflux disease. 4. Essential hypertension. 5. Primary osteoarthritis of multiple joints. 6. Sleep apnea. 7. Hypothyroidism. 8. Depression, not otherwise specified. 9. Ischemic cardiomyopathy; ejection fraction 40% to 45%. 10. Hypertensive heart disease. HOSPITAL COURSE: This patient presented with acute ST elevation myocardial infarction with stent to the RCA. The patient's LDL was 96. A 2-D echocardiogram showed an EF of 40% to 45%. At the time of discharge, up and about. No cardiac symptoms. CONSULTATION: Dr. Keita/Dr. Harris for intervention. DISCHARGE MEDICATIONS: 1. Vitamin D3 5000 units p.o. daily. 2. Fish oil 1 capsule p.o. daily. 3. Breo Ellipta 1 puff daily. 4. Hyzaar 100/25, 1 tablet daily. 5. Zoloft 100 mg p.o. daily. 6. Aspirin 81 mg p.o. daily. 7. Maalox 30 mL q.4 p.r.n. 8. Nitrostat 0.4 sublingual q.5 p.r.n. 9. Ventolin HFA 1 to 2 puffs every 6 hours p.r.n. 10. Tenormin 12.5 p.o. daily. 11. Synthroid 25 mcg p.o. daily. 12. Prilosec 40 mg p.o. daily. 13. Lipitor 80 mg p.o. q.h.s. 14. Effient 10 mg p.o. daily. 15. Norvasc 5 mg p.o. daily. Follow up with Dr. Bradley in 3 days. Follow up with Dr. Keita in 1 week. Other orders per Cardiology. On exam, lungs are clear. CARDIOVASCULAR: First and second sounds normal.
== END 2017-01-14 15:39 | disposition home or self-care (01) | DRG 249 ==
LOC: EC 07:41 → 6SEL 09:06 → 6ICU 12:00 → 6SEL 01-13 03:59
PROVIDERS: ADMIT Hospitalist; ATTEND Hospitalist
PROC: 4A023N7 Measurement of Cardiac Sampling and Pressure, Left Heart, Percutaneous Approach (ICD-10-PCS; 2017-01-12)
PROC: B2111ZZ Fluoroscopy of Multiple Coronary Arteries using Low Osmolar Contrast (ICD-10-PCS; 2017-01-12)
PROC: 02703DZ Dilation of Coronary Artery, One Artery with Intraluminal Device, Percutaneous Approach (ICD-10-PCS; principal; 2017-01-12 09:57)
PROC: 02C03ZZ Extirpation of Matter from Coronary Artery, One Artery, Percutaneous Approach (ICD-10-PCS; 2017-01-12 09:57)
DX: I21.19 ST elevation (STEMI) myocardial infarction involving other coronary artery of inferior wall (principal); I11.9 Hypertensive heart disease without heart failure; I25.110 Atherosclerotic heart disease of native coronary artery with unstable angina pectoris; I25.5 Ischemic cardiomyopathy; J45.20 Mild intermittent asthma, uncomplicated; K21.9 Gastro-esophageal reflux disease without esophagitis; M19.91 Primary osteoarthritis, unspecified site; G47.30 Sleep apnea, unspecified; F32.9 Major depressive disorder, single episode, unspecified; E87.6 Hypokalemia; E03.9 Hypothyroidism, unspecified; Z87.442 Personal history of urinary calculi; Z87.01 Personal history of pneumonia (recurrent); Z87.891 Personal history of nicotine dependence; Z79.51 Long term (current) use of inhaled steroids; Z79.82 Long term (current) use of aspirin; Z79.899 Other long term (current) drug therapy; Z82.49 Family history of ischemic heart disease and other diseases of the circulatory system
CPT/HCPCS: 36415; 71020; 80048; 80053; 80061; 82550; 82553; 83735; 84100; 84484; 85025; 85049; 85610; 85730; 92941; 93005; 93306; 93454; 94640; 96365; 96375; 96376; 99291

== ENCOUNTER 2017-01-21 06:13 | Inpatient (IN) | payer BC ==
[2017-01-21 06:58] LABS: Basophils # (A) 0.1 k/uL (0-0.2); Basophils % (A) 1 %; CH 30.6; CHCM 36.3; Eosinophils # (A) 0.4 k/uL (0-0.7); Eosinophils % (A) 4 %; HCT 45.9 % (39.0-53.0); HDW 3.01; HGB 16.2 gm/dL (13.0-17.5); Luc # (Auto) 0.17; Luc % (Auto) 2; Lymphocytes # (A) 1.8 k/uL (1.0-4.8); Lymphocytes % (A) 18 %; MCH 29.8 pg (25.0-35.0); MCHC 35.3 g/dL (31.0-37.0); MCV 84.6 fL (80.0-100.0); Mean Platelet Volume 8.2; Monocytes # (A) 0.5 k/uL (0-1.0); Monocytes % (A) 6 %; Neutrophils % (A) 71 %; RBC 5.43 m/uL (4.30-5.90); RDW 14.7 % (11.5-15.5); WBC 9.9 k/uL (3.8-10.6); WBC (Perox) 10.06
--- NOTE | 2017-01-21 06:58 | XR ---
EXAMINATION TYPE: XR chest 2V DATE OF EXAM: 01/21/2017 6:52 AM COMPARISON: Chest x-ray January 12, 2017 HISTORY: Chest and left-sided neck pain, had heart catheter one week ago. TECHNIQUE: Frontal and lateral views of the chest are obtained. FINDINGS: There is new right basilar linear atelectasis and patchy left basilar atelectatic change. No pleural effusion or pneumothorax is evident bilaterally. Underlying emphysematous change is not ex cluded. The cardiac silhouette size remains within normal limits with atherosclerotic thoracic aorta. The osseous structures are intact. IMPRESSION: New bibasilar atelectasis.
[2017-01-21 07:11] LABS: ALT 41 U/L (21-72); AST 25 U/L (17-59); Alkaline Phosphatase 74 U/L (38-126); Anion Gap 11 mmol/L; Blood Urea Nitrogen 17 mg/dL (9-20); Calcium 9.2 mg/dL (8.4-10.2); Carbon Dioxide 23 mmol/L (22-30); Chloride 105 mmol/L (98-107); Glucose 109 mg/dL (74-99); Magnesium 1.9 mg/dL (1.6-2.3); Non-African American GFR(MDRD) >60 (>60 ml/min/1.73 sqM); Potassium 3.4 mmol/L (3.5-5.1); Sodium 139 mmol/L (137-145); Total Bilirubin 1.3 mg/dL (0.2-1.3); Total Protein 6.8 g/dL (6.3-8.2)
[2017-01-21 07:12] LABS: Prothrombin Time 10.4 sec (9.0-12.0)
[2017-01-21] MEDS ORDERED: ASPIRIN 81 MG CHEW PO STA (07:18)
[2017-01-21] MEDS ORDERED: NITROGLYCERIN OINT 1 INCH/GM PACKET TOPICAL STA (07:18)
--- NOTE | 2017-01-21 07:31 | ED ---
General Adult HPI - General Chief complaint: Chest Pain Stated complaint: CHEST PAIN Time Seen by Provider: 01/21/17 07:00 Source: patient, family, RN notes reviewed Mode of arrival: wheelchair Limitations: no limitations - History of Present Illness Initial comments: This is a 66-year-old male who presents emergency Department with a past history significant for coronary artery disease and having had a stent placed one week ago. Patient comes in today because just before bed last evening he started having central chest pressure. Patient denies any radiation of the pain. Patient denies any shortness of breath or difficulty breathing. Patient denies any diaphoresis per patient denies any nausea. Patient states the pain is not as bad as it was when he had his heart attack but the pressure is similar. Patient denies any recent fever chills or cough. Patient states yesterday he did take a walk for the first time. Patient denies any abdominal pain patient denies any vomiting or diarrhea. Patient denies any headache patient states he was a little bit lightheaded yesterday while sitting around the house but aside from that he felt very much at his baseline prior to the chest pain. - Related Data Home Medications Medication Instructions Recorded Confirmed Cholecalciferol [Vitamin D3] 5,000 unit PO DAILY 06/03/16 01/12/17 Fish Oil/Dha/Epa [Fish Oil 1,200 1 cap PO DAILY 06/03/16 01/12/17 mg Fish Oil] Fluticasone/Vilanterol [Breo 1 puff INHALATION RT-DAILY 06/03/16 01/12/17 Ellipta 100-25 Mcg Inhaler] Losartan/Hydrochlorothiazide 1 tab PO DAILY 06/03/16 01/12/17 [Hyzaar 100-25 Tablet] Sertraline [Zoloft] 100 mg PO DAILY 06/03/16 01/12/17 Albuterol Inhaler [Ventolin Hfa 1 - 2 puff INHALATION RT-Q6H PRN 01/12/17 Inhaler] Atenolol [Tenormin] 12.5 mg PO DAILY 01/12/17 01/12/17 Levothyroxine Sodium [Synthroid] 25 mcg PO DAILY 01/12/17 01/12/17 Omeprazole [PriLOSEC] 40 mg PO DAILY 01/12/17 01/12/17 Previous Rx's Medication Instructions Recorded Aspirin 81 mg PO DAILY chew 06/04/16 Mag Hydrox/Al Hydrox/Simeth 30 ml PO Q4HR PRN #0 cup 06/04/16 [Maalox] Nitroglycerin Sl Tabs [Nitrostat] 0.4 mg SUBLINGUAL Q5M PRN #25 tab 06/04/16 Atorvastatin [Lipitor] 80 mg PO HS #30 tab 01/14/17 Prasugrel [Effient] 10 mg PO DAILY #30 tab 01/14/17 amLODIPine [Norvasc] 5 mg PO DAILY #30 tab 01/14/17 Allergies Allergy/AdvReac Type Severity Reaction Status Date / Time pseudoephedrine sulfate AdvReac Rapid Verified 01/21/17 06:24 [From Claritin-D] Heart Rate Review of Systems ROS Statement: Those systems with pertinent positive or pertinent negative responses have been documented in the HPI. ROS Other: All systems not noted in ROS Statement are negative. Past Medical History Past Medical History: Asthma, Coronary Artery Disease (CAD), Chest Pain / Angina , GERD/Reflux, Hypertension, Osteoarthritis (OA), Pneumonia, Sleep Apnea/CPAP/ BIPAP Additional Past Medical History / Comment(s): 01/12/17 Admitted to [facility] ER with acute inerior wall CT/hypokalemia. Other hx: arthritis bilateral knees and hands, back pain, SARAH with CPAP use, decreased immune system, several pneumonias , bronchitis, sinus problems, hayfever, hypothyroid, nephrolithiasis, past elevated liver enzymes. History of Any Multi-Drug Resistant Organisms: None Reported Past Surgical History: Adenoidectomy, Tonsillectomy Additional Past Surgical History / Comment(s): 01/12/17 PCI with stent to RCA. Other surgery: bilateral carpal tunnel releases; pil cyst on tailbone X2, colonoscopies, circumcism, vasectomy. Past Anesthesia/Blood Transfusion Reactions: No Reported Reaction Additional Past Anesthesia/Blood Transfusion Reaction / Comment(s): states diff to arouse sometimes Past Psychological History: Depression Additional Psychological History / Comment(s): Pt lives with his spouse. He is independent. He works for [employer]. Smoking Status: Former smoker Past Alcohol Use History: Occasional Additional Past Alcohol Use History / Comment(s): Pt smoked from [id number]. Past Drug Use History: None Reported - Past Family History Father Family Medical History: CVA/TIA, Eye Disorder, Vascular Disorder Additional Family Medical History / Comment(s): CVA, glaucoma, severe circulation problems, macular degeneration, dry eyes. Mother Family Medical History: Cancer, Eye Disorder Additional Family Medical History / Comment(s): Colon cancer, macular degeneration. Colon cancer runs on pt's mother's side of family. General Exam - General Exam Comments Initial Comments: GENERAL: Patient is well-developed and well-nourished. Patient is nontoxic and well- hydrated and is in mild distress. ENT: Neck is soft and supple. No significant lymphadenopathy is noted. Oropharynx is clear. Moist mucous membranes. Neck has full range of motion without eliciting any pain. EYES: The sclera were anicteric and conjunctiva were pink and moist. Extraocular movements were intact and pupils were equal round and reactive to light. Eyelids were unremarkable. PULMONARY: Unlabored respirations. Good breath sounds bilaterally. No audible rales rhonchi or wheezing was noted. CARDIOVASCULAR: There is a regular rate and rhythm without any murmurs gallops or rubs. ABDOMEN: Soft and nontender with normal bowel sounds. No palpable organomegaly was noted. There is no palpable pulsatile mass. SKIN: Skin is clear with no lesions or rashes and otherwise unremarkable. NEUROLOGIC: Patient is alert and oriented x3. Cranial nerves II through XII are grossly intact. Motor and sensory are also intact. Normal speech, volume and content. Symmetrical smile. MUSCULOSKELETAL: Normal extremities with adequate strength and full range of motion. No lower extremity swelling or edema. No calf tenderness. LYMPHATICS: No significant lymphadenopathy is noted PSYCHIATRIC: Normal psychiatric evaluation. Normal interpersonal interactions appears functionally intact in deals appropriately with others. No signs of depression. Limitations: no limitations Course Vital Signs 01/21/17 01/21/17 06:17 07:18 Temperature 98.9 F 98 F Pulse Rate 52 L 49 L Respiratory 18 16 Rate Blood Pressure 139/74 140/70 O2 Sat by Pulse 99 96 Oximetry Medical Decision Making - Medical Decision Making EKG shows sinus bradycardia 51 bpm NH interval is 164 QRS is 86 QT interval 442 QTC is 47 per patient's EKG shows no ST segment elevation or depression or T- wave abnormality is noted. Patient does have inverted T waves in leads 3 and aVF as well as Q waves in 3 and aVF. Chest x-ray shows no acute abnormality. Patient received aspirin and nitroglycerin in the emergency department patient stated after this he was feeling better. Because the patient's elevated troponin his recent cardiac stenting I placed the patient on heparin. I spoke with Dr. Watson he agreed to admit the patient admitted the patient I wrote admitting orders and consult cardiology and continue to heparin Nitropaste and aspirin on the floor. - Lab Data Result diagrams: 01/21/17 06:45 01/21/17 06:45 Lab Results 01/21/17 01/21/17 01/21/17 Range/Units 06:45 06:45 06:45 WBC 9.9 (3.8-10.6) k/uL RBC 5.43 (4.30-5.90) m/uL Hgb 16.2 (13.0-17.5) gm/dL Hct 45.9 (39.0-53.0) % MCV 84.6 (80.0-100.0) fL MCH 29.8 (25.0-35.0) pg MCHC 35.3 (31.0-37.0) g/dL RDW 14.7 (11.5-15.5) % Plt Count 179 (150-450) k/uL Neutrophils % 71 % Lymphocytes % 18 % Monocytes % 6 % Eosinophils % 4 % Basophils % 1 % Neutrophils # 7.0 (1.3-7.7) k/uL Lymphocytes # 1.8 (1.0-4.8) k/uL Monocytes # 0.5 (0-1.0) k/uL Eosinophils # 0.4 (0-0.7) k/uL Basophils # 0.1 (0-0.2) k/uL PT (9.0-12.0) sec INR (<1.1) APTT (22.0-30.0) sec Sodium 139 (137-145) mmol/L Potassium 3.4 L (3.5-5.1) mmol/L Chloride 105 (98-107) mmol/L Carbon Dioxide 23 (22-30) mmol/L Anion Gap 11 mmol/L BUN 17 (9-20) mg/dL Creatinine 1.02 (0.66-1.25) mg/dL Est GFR (MDRD) Af Amer >60 (>60 ml/min/1.73 sqM) Est GFR (MDRD) Non-Af >60 (>60 ml/min/1.73 sqM) Glucose 109 H (74-99) mg/dL Calcium 9.2 (8.4-10.2) mg/dL Magnesium 1.9 (1.6-2.3) mg/dL Total Bilirubin 1.3 (0.2-1.3) mg/dL AST 25 (17-59) U/L ALT 41 (21-72) U/L Alkaline Phosphatase 74 (38-126) U/L Total Creatine Kinase 112 (55-170) U/L CK-MB (CK-2) 1.1 (0.0-2.4) ng/mL CK-MB (CK-2) Rel Index 1.0 Troponin I 0.080 H* (0.000-0.034) ng/mL Total Protein 6.8 (6.3-8.2) g/dL Albumin 4.1 (3.5-5.0) g/dL 01/21/17 Range/Units 06:45 WBC (3.8-10.6) k/uL RBC (4.30-5.90) m/uL Hgb (13.0-17.5) gm/dL Hct (39.0-53.0) % MCV (80.0-100.0) fL MCH (25.0-35.0) pg MCHC (31.0-37.0) g/dL RDW (11.5-15.5) % Plt Count (150-450) k/uL Neutrophils % % Lymphocytes % % Monocytes % % Eosinophils % % Basophils % % Neutrophils # (1.3-7.7) k/uL Lymphocytes # (1.0-4.8) k/uL Monocytes # (0-1.0) k/uL Eosinophils # (0-0.7) k/uL Basophils # (0-0.2) k/uL PT 10.4 (9.0-12.0) sec INR 1.0 (<1.1) APTT 24.0 (22.0-30.0) sec Sodium (137-145) mmol/L Potassium (3.5-5.1) mmol/L Chloride (98-107) mmol/L Carbon Dioxide (22-30) mmol/L Anion Gap mmol/L BUN (9-20) mg/dL Creatinine (0.66-1.25) mg/dL Est GFR (MDRD) Af Amer (>60 ml/min/1.73 sqM) Est GFR (MDRD) Non-Af (>60 ml/min/1.73 sqM) Glucose (74-99) mg/dL Calcium (8.4-10.2) mg/dL Magnesium (1.6-2.3) mg/dL Total Bilirubin (0.2-1.3) mg/dL AST (17-59) U/L ALT (21-72) U/L Alkaline Phosphatase (38-126) U/L Total Creatine Kinase (55-170) U/L CK-MB (CK-2) (0.0-2.4) ng/mL CK-MB (CK-2) Rel Index Troponin I (0.000-0.034) ng/mL Total Protein (6.3-8.2) g/dL Albumin (3.5-5.0) g/dL Critical Care Time Critical Care Time: Yes Total Critical Care Time: 35 Disposition Clinical Impression: Unstable angina pectoris Disposition: ADMITTED IP TO THIS [facility] Time of Disposition: 08:36
[2017-01-21 07:49] LABS: Creatine Kinase MB 1.1 ng/mL (0.0-2.4)
[2017-01-21 07:57] LABS: Troponin I 0.08 ng/mL (0.000-0.034)
[2017-01-21] MEDS ORDERED: HEPARIN SODIUM,PORCINE 5,000 UNIT/ML 1 ML VIAL IV ONE (08:33)
[2017-01-21] MEDS ORDERED: NITROGLYCERIN SL TABS 0.4 MG TAB SUBLINGUAL PRN (08:36)
[2017-01-21] MEDS: HEPARIN SODIUM,PORCINE/D5W PMX 25,000 UNIT in DEXTROSE/WATER 1 500ML.BAG IV SCH ×2 (08:45→13:12)
[2017-01-21] MEDS ORDERED: ACETAMINOPHEN TAB 325 MG TAB PO STA (12:13)
[2017-01-21 12:41] LABS: Troponin I 0.069 ng/mL (0.000-0.034)
[2017-01-21 13:05] VITALS: BMI 36.1
[2017-01-21] MEDS: HEPARIN SODIUM,PORCINE 5,000 UNIT/ML 1 ML VIAL IV PRN ×2 (13:31→21:25)
[2017-01-21] MEDS: NITROGLYCERIN OINT 1 INCH/GM PACKET TOPICAL SCH ×3 (13:31→23:43)
[2017-01-21] MEDS ORDERED: POTASSIUM CHLORIDE ER 20 MEQ TAB.ER PO STA ×2 (13:51→13:58)
[2017-01-21] MEDS ORDERED: MAG HYDROX/AL HYDROX/SIMETH 30 ML CUP PO PRN (14:12)
[2017-01-21 19:23] LABS: Creatine Kinase MB 1.1 ng/mL (0.0-2.4)
[2017-01-21 19:28] LABS: Troponin I 0.066 ng/mL (0.000-0.034)
[2017-01-21] MEDS: PRASUGREL 10 MG TAB PO SCH (21:16)
[2017-01-21] MEDS: ATORVASTATIN 80 MG TAB PO SCH (21:22)
[2017-01-21] MEDS ORDERED: ACETAMINOPHEN TAB 325 MG TAB PO PRN (22:58)
[2017-01-22] MEDS: HEPARIN SODIUM,PORCINE/D5W PMX 25,000 UNIT in DEXTROSE/WATER 1 500ML.BAG IV SCH (02:42)
[2017-01-22 03:38] LABS: Cholesterol 82 mg/dL (<200); HDL Cholesterol 32 mg/dL (40-60); Triglycerides 104 mg/dL (<150)
[2017-01-22] MEDS: HEPARIN SODIUM,PORCINE 5,000 UNIT/ML 1 ML VIAL IV PRN (04:43)
[2017-01-22] MEDS: PANTOPRAZOLE 40 MG TABLET PO SCH (06:44)
[2017-01-22] MEDS: LEVOTHYROXINE 25 MCG TAB PO SCH (06:44)
[2017-01-22] MEDS: NITROGLYCERIN OINT 1 INCH/GM PACKET TOPICAL SCH ×3 (06:45→15:35)
[2017-01-22] MEDS: SYMBICORT 80-4.5 MCG INHALER INHALATION SCH ×2 (08:38→21:46)
--- NOTE | 2017-01-22 10:15 | P.CRDCN ---
History of Present Illness Consult date: 01/22/17 Chief complaint: chest discomfort History of present illness: This is a pleasant 66-year-old gentleman with a past medical history significant for coronary artery disease, hypertension, dyslipidemia presented to the hospital with a chest discomfort. On January 122016 he presented with a chest discomfort and was diagnosed with acute inferior SD. He underwent an emergent heart catheterization and was found to have an acute total occlusion of the proximal to mid RCA which was opened and stented with a good angiographic results. The left coronary system at that point was found to have [id number] disease. He was in his usual state of health until yesterday when he started experiencing very atypical chest discomfort in the mid of the chest described as twinges without any radiation and without any associated symptoms and more importantly they are quite different from what he experienced in the past when he presented with acute SD. The EKG showed sinus rhythm with T-wave inversion inferiorly and these finding are the same as before he was discharged home. The cardiac enzymes were checked and came in to be slightly abnormal but they are trending down. I do feel that the abnormal cardiac enzymes are likely related to his first event when he presented on January 122016 and they continue to be trending down. I would recommend medical treatment at this point. I will obtain an echocardiogram to assess for pericardial effusion/pericarditis. I will DC the heparin. Past Medical History Past Medical History: Asthma, Coronary Artery Disease (CAD), Chest Pain / Angina , GERD/Reflux, Hypertension, Osteoarthritis (OA), Pneumonia, Sleep Apnea/CPAP/ BIPAP Additional Past Medical History / Comment(s): 01/12/17 Admitted to [facility] ER with acute inerior wall SD/hypokalemia. Other hx: arthritis bilateral knees and hands, back pain, SARAH with CPAP use, decreased immune system, several pneumonias , bronchitis, sinus problems, hayfever, hypothyroid, nephrolithiasis, past elevated liver enzymes. History of Any Multi-Drug Resistant Organisms: None Reported Past Surgical History: Adenoidectomy, Tonsillectomy Additional Past Surgical History / Comment(s): 01/12/17 PCI with stent to RCA. Other surgery: bilateral carpal tunnel releases; pil cyst on tailbone X2, colonoscopies, circumcism, vasectomy. Past Anesthesia/Blood Transfusion Reactions: No Reported Reaction Additional Past Anesthesia/Blood Transfusion Reaction / Comment(s): states diff to arouse sometimes Past Psychological History: Depression Additional Psychological History / Comment(s): Pt lives with his spouse. He is independent. He works for [employer]. Smoking Status: Former smoker Past Alcohol Use History: Occasional Additional Past Alcohol Use History / Comment(s): Pt smoked from [id number]. Past Drug Use History: None Reported - Past Family History Father Family Medical History: CVA/TIA, Eye Disorder, Vascular Disorder Additional Family Medical History / Comment(s): CVA, glaucoma, severe circulation problems, macular degeneration, dry eyes. Mother Family Medical History: Cancer, Eye Disorder Additional Family Medical History / Comment(s): Colon cancer, macular degeneration. Colon cancer runs on pt's mother's side of family. Medications and Allergies Home Medications Medication Instructions Recorded Confirmed Type Cholecalciferol [Vitamin D3] 5,000 unit PO DAILY 06/03/16 01/21/17 History Fish Oil/Dha/Epa [Fish Oil 1,200 1 cap PO DAILY 06/03/16 01/21/17 History mg Fish Oil] Fluticasone/Vilanterol [Breo 1 puff INHALATION RT-DAILY 06/03/16 01/21/17 History Ellipta 100-25 Mcg Inhaler] Losartan/Hydrochlorothiazide 1 tab PO DAILY 06/03/16 01/21/17 History [Hyzaar 100-25 Tablet] Sertraline [Zoloft] 100 mg PO DAILY 06/03/16 01/21/17 History Albuterol Inhaler [Ventolin Hfa 1 - 2 puff INHALATION RT-Q6H PRN 01/12/17 History Inhaler] Atenolol [Tenormin] 12.5 mg PO DAILY 01/12/17 01/21/17 History Levothyroxine Sodium [Synthroid] 25 mcg PO DAILY 01/12/17 01/21/17 History Omeprazole [PriLOSEC] 40 mg PO DAILY 01/12/17 01/21/17 History Allergies Allergy/AdvReac Type Severity Reaction Status Date / Time pseudoephedrine sulfate AdvReac Rapid Verified 01/21/17 10:06 [From Claritin-D] Heart Rate Physical Exam Vitals: Vital Signs Temp Pulse Pulse Resp BP BP Pulse Ox 01/22/17 08:00 98 F 53 L 16 122/75 96 01/22/17 04:00 98.6 F 52 L 16 119/75 96 01/22/17 00:00 98.4 F 62 16 129/76 98 01/21/17 20:00 100.2 F H 58 L 16 146/83 94 L 01/21/17 16:00 98 F 54 L 16 129/75 96 01/21/17 12:27 96.8 F L 49 L 16 120/78 96 01/21/17 12:10 96.9 F L 50 L 16 102/51 98 01/21/17 10:15 48 L Intake and Output 01/21/17 01/22/17 01/22/17 22:59 06:59 14:59 Intake Total 380.704 247.523 Output Total 475 425 Balance 380.704 -227.477 -425 Intake: IV 160 Heparin Sodium,Porcine/ 160 D5w Pmx 25,000 unit In Dextrose/Water 1 500ml. bag @ 8.8 UNITS/KG/HR 20. 11 mls/hr IV .Q24H [facility] Rx #:[id number] Intake, IV Titration 220.704 247.523 Amount Heparin Sodium,Porcine/ 220.704 247.523 D5w Pmx 25,000 unit In Dextrose/Water 1 500ml. bag @ 8.8 UNITS/KG/HR 20. 11 mls/hr IV .Q24H [facility] Rx #:[id number] Output: Urine 475 425 Other: Voiding Method Urinal Urinal # Voids 1 1 Weight 114.8 kg - Constitutional General appearance: no acute distress - Respiratory Respiratory: bilateral: CTA - Cardiovascular Rhythm: regular Heart sounds: normal: S1, S2 Results 01/21/17 06:45 01/21/17 06:45 Cardiac Enzymes 01/21/17 01/21/17 Range/Units 11:40 18:30 CK-MB (CK-2) 1.0 1.1 (0.0-2.4) ng/mL Troponin I 0.069 H* 0.066 H* (0.000-0.034) ng/mL Coagulation 01/21/17 01/21/17 01/22/17 Range/Units 11:40 18:30 03:10 APTT 38.3 H 38.1 H 35.1 H (22.0-30.0) sec Lipids 01/22/17 Range/Units 03:10 Triglycerides 104 (<150) mg/dL Cholesterol 82 (<200) mg/dL HDL Cholesterol 32 L (40-60) mg/dL Current Medications Generic Name Dose Route Start Last Admin Trade Name Freq PRN Reason Stop Dose Admin Acetaminophen 650 mg 01/21/17 22:58 01/21/17 23:41 Tylenol Tab PO 650 mg Q6HR PRN Administration Fever and/ or Pain Al Hydroxide/Mg Hydroxide 30 ml 01/21/17 14:12 Maalox PO Q4HR PRN GI Upset Amlodipine Besylate 5 mg 01/22/17 09:00 Norvasc PO DAILY [facility] Aspirin 325 mg 01/22/17 09:00 Aspirin PO DAILY [facility] Atenolol 12.5 mg 01/22/17 09:00 Tenormin PO DAILY [facility] Atorvastatin Calcium 80 mg 01/21/17 21:00 01/21/17 21:22 Lipitor PO 80 mg HS [facility] Administration Budesonide/Formoterol Fumarate 2 puff 01/22/17 08:00 01/22/17 08:38 Symbicort 80-4.5 Mcg Inhaler INHALATION 2 puff RT-BID [facility] Administration HCTZ/Losartan Potassium 2 each 01/22/17 09:00 Hyzaar 50-12.5 PO DAILY [facility] Heparin Sodium (Porcine) 0 unit 01/21/17 13:26 01/22/17 04:43 Heparin IV 4,000 unit PER PROTOCOL PRN Administration Low PTT Protocol Heparin Sodium/Dextrose 25,000 500 mls @ 20.11 mls/hr 01/21/17 08:45 04:42 unit/ IV Solution IV 17.8 units/kg/hr .Q24H [facility] 40.69 mls/hr Protocol Titration 8.8 UNITS/KG/HR Levothyroxine Sodium 25 mcg 01/22/17 06:30 01/22/17 06:44 Synthroid PO 25 mcg DAILY@0630 [facility] Administration Nitroglycerin 1 inch 01/21/17 12:00 01/22/17 06:45 Nitro-Bid Oint TOPICAL Not Given Q6HR [facility] Nitroglycerin 0.4 mg 01/21/17 08:36 Nitrostat SUBLINGUAL Q5M PRN Chest Pain Pantoprazole Sodium 40 mg 01/22/17 07:30 01/22/17 06:44 Protonix PO 40 mg [id number] [facility] Administration Prasugrel 10 mg 01/21/17 14:30 01/21/17 21:16 Effient PO Not Given DAILY [facility] Sertraline HCl 100 mg 01/22/17 09:00 Zoloft PO DAILY [facility] Intake and Output 01/21/17 01/22/17 01/22/17 22:59 06:59 14:59 Intake Total 380.704 247.523 Output Total 475 425 Balance 380.704 -227.477 -425 Intake: IV 160 Heparin Sodium,Porcine/ 160 D5w Pmx 25,000 unit In Dextrose/Water 1 500ml. bag @ 8.8 UNITS/KG/HR 20. 11 mls/hr IV .Q24H [facility] Rx #:[id number] Intake, IV Titration 220.704 247.523 Amount Heparin Sodium,Porcine/ 220.704 247.523 D5w Pmx 25,000 unit In Dextrose/Water 1 500ml. bag @ 8.8 UNITS/KG/HR 20. 11 mls/hr IV .Q24H [facility] Rx #:[id number] Output: Urine 475 425 Other: Voiding Method Urinal Urinal # Voids 1 1 Weight 114.8 kg Assessment and Plan Plan: assessment Atypical chest discomfort Mildly abnormal cardiac enzymes Known CAD and status post a stenting of the RCA as described above Multiple comorbidities Plan The abnormal cardiac enzymes is related to the first event about a week ago I will obtain an echocardiogram was Doppler DC the heparin Follow-up with the patient
[2017-01-22] MEDS: ASPIRIN 325 MG TAB PO SCH (11:43)
[2017-01-22] MEDS: ATENOLOL 12.5 MG TAB PO SCH (11:44)
[2017-01-22] MEDS: PRASUGREL 10 MG TAB PO SCH (11:44)
[2017-01-22] MEDS: SERTRALINE 100 MG TAB PO SCH (11:44)
[2017-01-22] MEDS: LOSARTAN-HCTZ 50-12.5 MG 1 EACH TAB PO SCH (11:44)
[2017-01-22] MEDS: amLODIPine 5 MG TAB PO SCH (11:44)
--- NOTE | 2017-01-22 16:18 | P.HPIM ---
History of Present Illness H&P Date: 01/21/17 (This is a repeat documentation is a previously dictated document was lost) 66-year-old gentleman who comes in the hospital with the recurrent episode of chest pain describes it as achy pain in his bilateral upper arms with exertion some complains of pain in his chest which started 24 hours prior to the admission. Patient was recently admitted to the hospital with a acute inferior DC underwent a PCI/PTCA to the RCA. With his history of a recent intervention 7 days prior patient comes in to the emergency room EKG did not reveal significant ST-T wave changes. There is a mild elevation troponin leak however this appears to be from the trend down from the recent myocardial infarction Patient has been compliant with his dual antiplatelet therapy. Patient's blood pressures have been running from 120-160 systolic Patient was seen by Dr. Gaytan on was in good health. Denies having any headaches, blurry vision, nausea, vomiting, diarrhea, chest pain Review of Systems All systems: negative (Noted in HPI) Past Medical History Past Medical History: Asthma, Coronary Artery Disease (CAD), Chest Pain / Angina , GERD/Reflux, Hypertension, Osteoarthritis (OA), Pneumonia, Sleep Apnea/CPAP/ BIPAP Additional Past Medical History / Comment(s): 01/12/17 Admitted to [facility] ER with acute inerior wall DC/hypokalemia. Other hx: arthritis bilateral knees and hands, back pain, SARAH with CPAP use, decreased immune system, several pneumonias , bronchitis, sinus problems, hayfever, hypothyroid, nephrolithiasis, past elevated liver enzymes. History of Any Multi-Drug Resistant Organisms: None Reported Past Surgical History: Adenoidectomy, Tonsillectomy Additional Past Surgical History / Comment(s): 01/12/17 PCI with stent to RCA. Other surgery: bilateral carpal tunnel releases; pil cyst on tailbone X2, colonoscopies, circumcism, vasectomy. Past Anesthesia/Blood Transfusion Reactions: No Reported Reaction Additional Past Anesthesia/Blood Transfusion Reaction / Comment(s): states diff to arouse sometimes Past Psychological History: Depression Additional Psychological History / Comment(s): Pt lives with his spouse. He is independent. He works for [employer]. Smoking Status: Former smoker Past Alcohol Use History: Occasional Additional Past Alcohol Use History / Comment(s): Pt smoked from [id number]. Past Drug Use History: None Reported - Past Family History Father Family Medical History: CVA/TIA, Eye Disorder, Vascular Disorder Additional Family Medical History / Comment(s): CVA, glaucoma, severe circulation problems, macular degeneration, dry eyes. Mother Family Medical History: Cancer, Eye Disorder Additional Family Medical History / Comment(s): Colon cancer, macular degeneration. Colon cancer runs on pt's mother's side of family. Medications and Allergies Home Medications Medication Instructions Recorded Confirmed Type Cholecalciferol [Vitamin D3] 5,000 unit PO DAILY 06/03/16 01/21/17 History Fish Oil/Dha/Epa [Fish Oil 1,200 1 cap PO DAILY 06/03/16 01/21/17 History mg Fish Oil] Fluticasone/Vilanterol [Breo 1 puff INHALATION RT-DAILY 06/03/16 01/21/17 History Ellipta 100-25 Mcg Inhaler] Losartan/Hydrochlorothiazide 1 tab PO DAILY 06/03/16 01/21/17 History [Hyzaar 100-25 Tablet] Sertraline [Zoloft] 100 mg PO DAILY 06/03/16 01/21/17 History Albuterol Inhaler [Ventolin Hfa 1 - 2 puff INHALATION RT-Q6H PRN 01/12/17 History Inhaler] Atenolol [Tenormin] 12.5 mg PO DAILY 01/12/17 01/21/17 History Levothyroxine Sodium [Synthroid] 25 mcg PO DAILY 01/12/17 01/21/17 History Omeprazole [PriLOSEC] 40 mg PO DAILY 01/12/17 01/21/17 History Allergies Allergy/AdvReac Type Severity Reaction Status Date / Time pseudoephedrine sulfate AdvReac Rapid Verified 01/21/17 10:06 [From Claritin-D] Heart Rate Physical Exam Vitals: Vital Signs Temp Pulse Resp BP Pulse Ox 01/22/17 16:00 98.3 F 56 L 16 146/84 94 L 01/22/17 12:00 98.2 F 60 16 153/83 93 L 01/22/17 08:00 98 F 53 L 16 122/75 96 01/22/17 04:00 98.6 F 52 L 16 119/75 96 01/22/17 00:00 98.4 F 62 16 129/76 98 01/21/17 20:00 100.2 F H 58 L 16 146/83 94 L Intake and Output 01/22/17 01/22/17 01/22/17 06:59 14:59 22:59 Intake Total 247.523 Output Total 475 425 Balance -227.477 -425 Intake: Intake, IV Titration 247.523 Amount Heparin Sodium,Porcine/ 247.523 D5w Pmx 25,000 unit In Dextrose/Water 1 500ml. bag @ 8.8 UNITS/KG/HR 20. 11 mls/hr IV .Q24H [facility] Rx #:[id number] Output: Urine 475 425 Other: Voiding Method Urinal # Voids 1 Weight 114.8 kg Physical exam Gen. appearance oriented 3 in no distress Neck is supple no JVD Lungs good air entry clear to auscultation no rhonchi or wheezing Heart S1-S2 heard regular rate and rhythm no murmurs appreciated Abdomen is soft nontender no organomegaly bowel sounds are intact Neurologically cranial nerves II-12 grossly intact no focal motor or sensory deficits noted Skin no abnormalities appreciated Results CBC & Chem 7: 01/21/17 06:45 01/21/17 06:45 Labs: Abnormal Lab Results - Last 24 Hours (Table) 01/21/17 01/21/17 01/22/17 Range/Units 18:30 18:30 03:10 APTT 38.1 H (22.0-30.0) sec Troponin I 0.066 H* (0.000-0.034) ng/mL HDL Cholesterol 32 L (40-60) mg/dL 01/22/17 01/22/17 Range/Units 03:10 11:00 APTT 35.1 H 58.7 H (22.0-30.0) sec Troponin I (0.000-0.034) ng/mL HDL Cholesterol (40-60) mg/dL Assessment and Plan Plan: #1 atypical chest pain if she has to be ruled out #2 CAD status post PCI and PTCA to the RCA graft #3 obstructive sleep apnea compliant with the CPAP #4 hypertension #5 Osteoarthritis #6 GERD #7 history of asthma Plan Serial enzymes. Cardiac consultation We'll defer discontinuation of heparin to the senior contracts manager. And does appear to be atypical in nature cardiac is not trending down Encourage activity Echocardiogram as per recommendations by the heart doctor Blood pressure medications were reconciled continue dual antiplatelet therapy electrolytes were appropriately replaced.
--- NOTE | 2017-01-22 16:20 | P.PN ---
Subjective 66-year-old gentleman who comes in the hospital with the recurrent episode of chest pain describes it as achy pain in his bilateral upper arms with exertion some complains of pain in his chest which started 24 hours prior to the admission. Patient was recently admitted to the hospital with a acute inferior SC underwent a PCI/PTCA to the RCA. With his history of a recent intervention 7 days prior patient comes in to the emergency room EKG did not reveal significant ST-T wave changes. There is a mild elevation troponin leak however this appears to be from the trend down from the recent myocardial infarction Patient has been compliant with his dual antiplatelet therapy. Patient's blood pressures have been running from 120-160 systolic Patient was seen by Dr. Gaytan on was in good health. Denies having any headaches, blurry vision, nausea, vomiting, diarrhea, chest pain 01/22/2017 Patient does appear to be doing better denies having any further episodes of chest pressure or aching pains in his arms and shoulders. Objective - Vital Signs Vital signs: Vital Signs Temp 98.3 F 01/22/17 16:00 Pulse 56 L 01/22/17 16:00 Resp 16 01/22/17 16:00 BP 146/84 01/22/17 16:00 Pulse Ox 94 L 01/22/17 16:00 Intake & Output 01/21/17 01/22/17 01/22/17 18:59 06:59 18:59 Intake Total 569.49 628.227 Output Total 475 425 Balance 569.49 153.227 -425 Weight 114.305 kg 114.8 kg Intake: IV 160 Heparin Sodium,Porcine/ 160 D5w Pmx 25,000 unit In Dextrose/Water 1 500ml. bag @ 8.8 UNITS/KG/HR 20. 11 mls/hr IV .Q24H [facility] Rx #:[id number] Intake, IV Titration 89.49 468.227 Amount Heparin Sodium,Porcine/ 89.49 468.227 D5w Pmx 25,000 unit In Dextrose/Water 1 500ml. bag @ 8.8 UNITS/KG/HR 20. 11 mls/hr IV .Q24H [facility] Rx #:[id number] Oral 480 Output: Urine 475 425 Other: Voiding Method Urinal # Voids 1 - Exam Physical exam Gen. appearance oriented 3 in no distress Neck is supple no JVD Lungs good air entry clear to auscultation no rhonchi or wheezing Heart S1-S2 heard regular rate and rhythm no murmurs appreciated Abdomen is soft nontender no organomegaly bowel sounds are intact Neurologically cranial nerves II-12 grossly intact no focal motor or sensory deficits noted Skin no abnormalities appreciated - Labs CBC & Chem 7: 01/21/17 06:45 01/21/17 06:45 Labs: Abnormal Lab Results - Last 24 Hours (Table) 01/21/17 01/21/17 01/22/17 Range/Units 18:30 18:30 03:10 APTT 38.1 H (22.0-30.0) sec Troponin I 0.066 H* (0.000-0.034) ng/mL HDL Cholesterol 32 L (40-60) mg/dL 01/22/17 01/22/17 Range/Units 03:10 11:00 APTT 35.1 H 58.7 H (22.0-30.0) sec Troponin I (0.000-0.034) ng/mL HDL Cholesterol (40-60) mg/dL Assessment and Plan Plan: #1 atypical chest pain if she has to be ruled out #2 CAD status post PCI and PTCA to the RCA graft #3 obstructive sleep apnea compliant with the CPAP #4 hypertension #5 Osteoarthritis #6 GERD #7 history of asthma Plan Cardiology recommendations are appreciated We'll obtain echocardiogram to rule out any post infarction complications including Carol syndrome Blood pressures are appropriate patient is encouraged to ambulate we'll likely discharge the patient 24 hours if patient is stable.
[2017-01-22] MEDS: ATORVASTATIN 80 MG TAB PO SCH (19:59)
[2017-01-23] MEDS: NITROGLYCERIN OINT 1 INCH/GM PACKET TOPICAL SCH ×3 (01:09→11:21)
[2017-01-23 06:12] VITALS: TEMP 98.6
[2017-01-23] MEDS: PANTOPRAZOLE 40 MG TABLET PO SCH (06:58)
[2017-01-23] MEDS: LEVOTHYROXINE 25 MCG TAB PO SCH (06:58)
[2017-01-23] MEDS: ATENOLOL 12.5 MG TAB PO SCH (07:55)
[2017-01-23] MEDS: ASPIRIN 325 MG TAB PO SCH (07:56)
[2017-01-23] MEDS: LOSARTAN-HCTZ 50-12.5 MG 1 EACH TAB PO SCH (07:56)
[2017-01-23] MEDS: PRASUGREL 10 MG TAB PO SCH (07:56)
[2017-01-23] MEDS: amLODIPine 5 MG TAB PO SCH (07:56)
[2017-01-23] MEDS: SERTRALINE 100 MG TAB PO SCH (08:00)
[2017-01-23] MEDS: SYMBICORT 80-4.5 MCG INHALER INHALATION SCH (08:04)
[2017-01-23 08:16] VITALS: RESP 18
--- NOTE | 2017-01-23 10:42 | HP ---
DATE OF ADMISSION: Reason for admission is chest pain. HISTORY OF PRESENT ILLNESS: This is a 66-year-old gentleman who recently underwent a PTCA and PCI to the RCA a week ago, done by Dr. Harris. Comes into the hospital with recurrent episodes of chest pressure over the last 24 to 48 hours. Patient stated that his blood pressure has been anywhere from 120 to 170 systolic, has seen Dr. Keita within the last 2 or 3 days with recommended changes in medication and better blood pressure control. Patient initially noted a pain in his chest on the right side, radiated to the left and to his neck. States that pain is somewhat different than the previous episode of chest pain. However, pain is ( ) during ambulation and was relieved with nitroglycerine initially in the Emergency Room. In the Emergency Room, EKG on 01/21/[address]-T wave changes; however, with Miguel's criteria for LVH is met. States that he has had chest pressure, midsternal location overnight about 1 to 2/10. Hence, the concern for the recent stent, came into the hospital for ongoing care. Troponin was elevated at the peak of 0.08. Past medical history includes asthma, GERD, CAD, hypertension, osteoarthritis, sleep apnea, hypothyroidism. Past surgical history includes adenoidectomy, tonsillectomy, bilateral carpal tunnel release, circumcision, vasectomy and recent cardiac catheterization. SOCIAL HISTORY: Is , social drinker, denies any illicit drug use. Remote history of smoking. REVIEW OF SYSTEMS: A 14-point review of systems were done, none pertinent other than those mentioned above. Home medications include: 1. Aspirin. 2. Norvasc. 3. Zoloft. 4. Effient. 5. Prilosec. 6. Nitroglycerin. 7. Maalox. 8. Hyzaar. 9. Levothyroxine. 10. Breo. 11. Fish oil. 12. Cholecalciferol. 13. Atorvastatin. 14. Atenolol. 15. Ventolin. FAMILY HISTORY: Not pertinent to the current admission. PHYSICAL EXAM: VITALS: Temperature is 96.9, heart rate is 50, blood pressure 102/51, saturating 98% on room air. GENERALLY: Patient appears to be alert, oriented x3. HEENT: The pupils are equal and reactive to light and accommodation. HEART: S1, S2 present. No murmur appreciated. LUNGS: Good air entry. No wheezing or rhonchi noted. ABDOMINAL EXAM: Soft, nontender, no organomegaly appreciated. GENITOURINARY: No Bennett in place. EXTREMITIES: Pulses can be palpated distally. Denies any tenderness on gross palpation. SKIN: On a gross skin exam does not appear to have any purpura or any skin rashes that were noted. NEUROLOGICALLY: Grossly cranial nerves 2-12 intact. No motor or sensory deficits noted. Laboratory data includes hemoglobin 16.3, hematocrit 45.9, platelets are 179, WBC is 9.9, sodium 139, potassium 3.4, chloride 105, bicarb 23, BUN 17, creatinine of 1.08, creatinine peak of 0.08, second troponin is 0.069. ASSESSMENT AND PLAN: 1. Atypical chest pain in a patient with recent cardiac intervention. 2. Chronic systolic compensated heart failure with an ejection fraction of around 40%. 3. ( ). 4. Hypothyroidism. 5. Dyslipidemia. 6. Major depression. 7. Remote history of tobacco use. 8. Chronic obstructive pulmonary disease, stable. 9. Gastroesophageal reflux disease. PLAN: Continue ongoing ( ), continue trending troponin. I will a dub room engineer evaluate the patient. The patient does not appear to have any acute in-stent stenosis. This does appear to be atypical; however, with mild elevation of troponin and relief with nitroglycerin and patient is admitted for close monitoring. Will need continued monitoring telemetry, vital signs, inpatient care for at least 24 hours and thereafter could likely be discharged depending on the recommendation of the dub room engineer. Patient was placed on heparin protocol by emergency physician. Will continue until evaluated by the dub room engineer.
--- NOTE | 2017-01-23 11:26 | ECHOF ---
Referral Reason:pericarditis MEASUREMENTS -------- HEIGHT: 152.4 cm WEIGHT: 113.4 kg BP: 139/73 RVIDd: 3.3 cm (< 3.3) IVSd: 1.3 cm (0.6 - 1.1) LVIDd: 5.1 cm (3.9 - 5.3) LVPWd: 1.3 cm (0.6 - 1.1) IVSs: 1.5 cm LVIDs: 3.7 cm LVPWs: 1.2 cm LA Diam: 3.6 cm (2.7 - 3.8) LAESV Index (A-L): 44.79 ml/m Ao Diam: 3.7 cm (2.0 - 3.7) AV Cusp: 2.1 cm (1.5 - 2.6) LA Diam: 4.6 cm (2.7 - 3.8) MV EXCURSION: 25.770 mm (> 18.000) MV EF SLOPE: 98 mm/s (70 - 150) EPSS: 0.8 cm MV E Jerrod: 0.93 m/s MV DecT: 291 ms MV A Jerrod: 0.89 m/s MV E/A Ratio: 1.06 RAP: 5.00 mmHg RVSP: 14.47 mmHg FINDINGS -------- Sinus rhythm. This was a technically adequate study. There is mild concentric left ventricular hypertrophy. Overall left ventricular systolic function is normal with, an EF between 55 - 60 %. The right ventricle is normal in size. LA is severely dilated >40 ml/m2 The right atrial size is normal. There is mild aortic valve sclerosis. There is no evidence of aortic regurgitation. Mild mitral annular calcification present. Mild mitral regurgitation is present. Mild tricuspid regurgitation present. There is no evidence of pulmonary hypertension. The right ventricular systolic pressure, as measured by Doppler, is 14.47mmHg. There is no pulmonic regurgitation present. The aortic root size is normal. There is no pericardial effusion. CONCLUSIONS -------- 1. There is mild concentric left ventricular hypertrophy. 2. LA is severely dilated >40 ml/m2 3. There is mild aortic valve sclerosis. 4. Mild mitral annular calcification present. 5. Mild mitral regurgitation is present. 6. Mild tricuspid regurgitation present. 7. There is no evidence of pulmonary hypertension. 8. The right ventricular systolic pressure, as measured by Doppler, is 14.47mmHg. RAG CUTTING MACHINE FEEDER: Jennie Woodard RDCS
--- NOTE | 2017-01-23 13:41 | P.PN ---
Subjective Principal diagnosis: Chest pain This is a pleasant 66-year-old gentleman with a past medical history significant for coronary artery disease, hypertension, dyslipidemia presented to the hospital with a chest discomfort.On January 122016 he presented with a chest discomfort and was diagnosed with acute inferior NC. He underwent an emergent heart catheterization and was found to have an acute total occlusion of the proximal to mid RCA which was opened and stented with a good angiographic results. The left coronary system at that point was found to have [id number] disease.He was in his usual state of health, when he started experiencing very atypical chest discomfort in the mid of the chest described as twinges without any radiation and without any associated symptoms and more importantly they are quite different from what he experienced in the past when he presented with acute NC.The EKG showed sinus rhythm with T-wave inversion inferiorly and these finding are the same as before he was discharged home.The cardiac enzymes were checked and came in to be slightly abnormal but they are trending down.I do feel that the abnormal cardiac enzymes are likely related to his first event when he presented on January 122016 and they continue to be trending down. I would recommend medical treatment at this point. A cardiogram with Doppler study was performed which revealed normal left ventricular systolic function with no evidence of any effusion. Overall the patient is feeling well. He will be discharged home today, and follow-up appointment with will be made with Dr. Keita. Objective - Vital Signs Vital signs: Vital Signs Temp 98.6 F 01/23/17 04:00 Pulse 54 L 01/23/17 12:00 Resp 18 01/23/17 12:00 BP 137/79 01/23/17 12:00 Pulse Ox 98 01/23/17 12:00 Intake & Output 01/22/17 01/23/17 01/23/17 18:59 06:59 18:59 Intake Total 222 10 380 Output Total 425 Balance -203 10 380 Weight 113.4 kg Intake: IV 10 Flush 10 Oral 222 380 Output: Urine 425 Other: Voiding Method Toilet # Voids 1 1 - Exam PHYSICAL EXAMINATION: HEENT: Head is atraumatic, normocephalic. Pupils equal, round. Neck is supple. There is no elevated jugular venous pressure. HEART EXAMINATION: Heart S1, S2 normal. No murmur or gallop heard. CHEST EXAMINATION: Lungs are clear to auscultation and precussion. No chest wall tenderness is noted on palpation or with deep breathing. ABDOMEN: Soft, nontender. Bowel sounds are heard. No organomegaly noted. EXTREMITIES:[ 2+ peripheral pulses with no evidence of peripheral edema and no calf tenderness noted]. NEUROLOGIC [patient is awake, alert and oriented -3.] . - Labs CBC & Chem 7: 01/21/17 06:45 01/21/17 06:45 Assessment and Plan (1) Atypical chest pain Status: Acute (2) S/P right coronary artery (RCA) stent placement Status: Acute (3) HTN (hypertension) Status: Acute (4) Hyperlipemia Status: Acute Plan: , Cardiology's perspective, patient may be able to be discharged home today. We will make him a follow-up appointment with Dr. Keita in the office post discharge. DNP note has been reviewed, I agree with a documented findings and plan of care. Patient was seen and examined.
[2017-01-23 15:26] VITALS: BP 140/82; PULSE 59
--- NOTE | 2017-01-23 19:53 | DS ---
DATE OF ADMISSION: 01/21/2017 DATE OF DISCHARGE: 01/23/2017 HOSPITAL COURSE: This is a 67-year-old gentleman who has a history of CAD and underwent PCI, PTCA to the RCA seven days prior to the day of admission. Patient noted to have some atypical chest pain; however, he had odd features as relieved with nitroglycerin; hence came into the hospital for ongoing care. Patient was compliant with his aspirin and Effient prior to admission. Patient's blood pressure systolic ranged from 131 to 165, diastolic from 60 to 90 during the hospitalization. Cardiac enzymes x3 were negative. With the timing of patient's admission, patient was previously admitted for acute myocardial infarction. Etiologies such as Carol syndrome were considered. Echocardiogram was done which did not reveal any gross abnormalities. It was noted to show mild aortic valve sclerosis; EF of 55% to 60% with no significant wall motion abnormalities. No medication changes were made. His home medications were continued appropriately. DISCHARGE DIAGNOSES: 1. Atypical chest pain. ACS was ruled out. 2. Coronary artery disease. 3. Hypertension. 4. Osteoarthritis. 5. Gastroesophageal reflux disease. 6. Asthma. 7. Obesity. FOLLOWUPS: Patient is recommended to follow up with Dr. Keita in [address] Bradley within one week. Patient was discharged home in stable condition. Patient was made to ambulate without any abnormalities. Importance of dual antiplatelet therapy was discussed. Blood pressure diary and ( ) monitoring were also discussed with the patient. He was discharged home in stable condition.
== END 2017-01-23 16:04 | disposition home or self-care (01) | DRG 313 ==
LOC: EC 06:13 → 6SEL 08:36
PROVIDERS: ADMIT Internal Medicine; ATTEND Internal Medicine
DX: R07.89 Other chest pain (principal); I50.22 Chronic systolic (congestive) heart failure; I25.2 Old myocardial infarction; I11.0 Hypertensive heart disease with heart failure; I25.10 Atherosclerotic heart disease of native coronary artery without angina pectoris; F32.9 Major depressive disorder, single episode, unspecified; E03.9 Hypothyroidism, unspecified; E66.9 Obesity, unspecified; E78.5 Hyperlipidemia, unspecified; G47.33 Obstructive sleep apnea (adult) (pediatric); I35.8 Other nonrheumatic aortic valve disorders; J44.9 Chronic obstructive pulmonary disease, unspecified; J45.909 Unspecified asthma, uncomplicated; K21.9 Gastro-esophageal reflux disease without esophagitis; M17.0 Bilateral primary osteoarthritis of knee; M19.042 Primary osteoarthritis, left hand; M19.041 Primary osteoarthritis, right hand; M54.9 Dorsalgia, unspecified; Z68.35 Body mass index [BMI] 35.0-35.9, adult; Z87.891 Personal history of nicotine dependence; Z79.82 Long term (current) use of aspirin; Z79.899 Other long term (current) drug therapy; Z95.5 Presence of coronary angioplasty implant and graft; Z88.8 Allergy status to other drugs, medicaments and biological substances
CPT/HCPCS: 36415; 71020; 80053; 80061; 82550; 82553; 83735; 84484; 85025; 85610; 85730; 93005; 93306; 94640; 94760; 96365; 96366; 96376; 99291

== ENCOUNTER 2017-05-15 08:39 | Inpatient (IN) | payer BC ==
[2017-05-15 09:09] LABS: Basophils # (A) 0.1 k/uL (0-0.2); Basophils % (A) 1 %; Eosinophils # (A) 0.3 k/uL (0-0.7); Eosinophils % (A) 3 %; HCT 45.4 % (39.0-53.0); HDW 3.13; HGB 16.4 gm/dL (13.0-17.5); Luc # (Auto) 0.15; Luc % (Auto) 2; Lymphocytes # (A) 1.7 k/uL (1.0-4.8); Lymphocytes % (A) 19 %; MCH 30.2 pg (25.0-35.0); MCHC 36.1 g/dL (31.0-37.0); MCV 83.9 fL (80.0-100.0); Mean Platelet Volume 8.2; Monocytes # (A) 0.4 k/uL (0-1.0); Monocytes % (A) 5 %; Neutrophils # (A) 6.4 k/uL (1.3-7.7); Neutrophils % (A) 71 %; RBC 5.42 m/uL (4.30-5.90); RDW 14.6 % (11.5-15.5); WBC (Perox) 8.45
--- NOTE | 2017-05-15 09:16 | ED ---
General Adult HPI - General Chief complaint: Chest Pain Stated complaint: Chest Pain Time Seen by Provider: 05/15/17 08:50 Source: patient, RN notes reviewed, old records reviewed Mode of arrival: EMS - History of Present Illness Initial comments: This is a 66-year-old chest pain is left-sided anterior without redness. It is intermittent and relieved with nitro. Patient has history of heart disease or high cholesterol or blood pressure. Patient chest pain currently is diminished , he feels improved. Again no fevers or cough congestion. - Related Data Home Medications Medication Instructions Recorded Confirmed Cholecalciferol [Vitamin D3] 5,000 unit PO DAILY 06/03/16 05/15/17 Fluticasone/Vilanterol [Breo 1 puff INHALATION RT-DAILY 06/03/16 05/15/17 Ellipta 100-25 Mcg Inhaler] Losartan/Hydrochlorothiazide 1 tab PO DAILY 06/03/16 05/15/17 [Hyzaar 100-25 Tablet] Sertraline [Zoloft] 100 mg PO DAILY 06/03/16 05/15/17 Atenolol [Tenormin] 12.5 mg PO DAILY 01/12/17 05/15/17 Levothyroxine Sodium [Synthroid] 25 mcg PO DAILY 01/12/17 05/15/17 Omeprazole [PriLOSEC] 40 mg PO HS 01/12/17 05/15/17 Aspirin 81 mg PO HS 05/15/17 05/15/17 Atorvastatin [Lipitor] 40 mg PO HS 05/15/17 05/15/17 Loratadine [Claritin] 10 mg PO HS 05/15/17 05/15/17 amLODIPine [Norvasc] 5 mg PO HS 05/15/17 05/15/17 Previous Rx's Medication Instructions Recorded Nitroglycerin Sl Tabs [Nitrostat] 0.4 mg SUBLINGUAL Q5M PRN #25 tab 06/04/16 Prasugrel [Effient] 10 mg PO DAILY #30 tab 01/14/17 Allergies Allergy/AdvReac Type Severity Reaction Status Date / Time pseudoephedrine sulfate AdvReac Rapid Verified 05/15/17 09:43 [From Claritin-D] Heart Rate Review of Systems ROS Statement: Those systems with pertinent positive or pertinent negative responses have been documented in the HPI. ROS Other: All systems not noted in ROS Statement are negative. Past Medical History Past Medical History: Asthma, Coronary Artery Disease (CAD), Chest Pain / Angina , GERD/Reflux, Hypertension, Myocardial Infarction (IA), Osteoarthritis (OA), Pneumonia, Sleep Apnea/CPAP/BIPAP Additional Past Medical History / Comment(s): 01/12/17 Admitted to [facility] ER with acute inerior wall IA/hypokalemia. Other hx: arthritis bilateral knees and hands, back pain, SARAH with CPAP use, decreased immune system, several pneumonias , bronchitis, sinus problems, hayfever, hypothyroid, nephrolithiasis, past elevated liver enzymes. History of Any Multi-Drug Resistant Organisms: None Reported Past Surgical History: Adenoidectomy, Heart Catheterization, Heart Catheterization With Stent, Tonsillectomy Additional Past Surgical History / Comment(s): 01/12/17 PCI with stent to RCA. Other surgery: bilateral carpal tunnel releases; pil cyst on tailbone X2, colonoscopies, circumcism, vasectomy. Past Anesthesia/Blood Transfusion Reactions: No Reported Reaction Additional Past Anesthesia/Blood Transfusion Reaction / Comment(s): states diff to arouse sometimes Past Psychological History: Depression Smoking Status: Former smoker Past Alcohol Use History: Occasional Past Drug Use History: None Reported - Past Family History Father Family Medical History: CVA/TIA, Eye Disorder, Vascular Disorder Additional Family Medical History / Comment(s): CVA, glaucoma, severe circulation problems, macular degeneration, dry eyes. Mother Family Medical History: Cancer, Eye Disorder Additional Family Medical History / Comment(s): Colon cancer, macular degeneration. Colon cancer runs on pt's mother's side of family. General Exam General appearance: alert, in no apparent distress Head exam: Present: atraumatic, normocephalic, normal inspection Eye exam: Present: normal appearance, PERRL, EOMI. Absent: scleral icterus, conjunctival injection, periorbital swelling ENT exam: Present: normal exam, mucous membranes moist Neck exam: Present: normal inspection. Absent: tenderness, meningismus, lymphadenopathy Respiratory exam: Present: normal lung sounds bilaterally. Absent: respiratory distress, wheezes, rales, rhonchi, stridor Cardiovascular Exam: Present: regular rate, normal rhythm, normal heart sounds. Absent: systolic murmur, diastolic murmur, rubs, gallop, clicks GI/Abdominal exam: Present: soft, normal bowel sounds. Absent: distended, tenderness, guarding, rebound, rigid Extremities exam: Present: normal inspection, full ROM, normal capillary refill. Absent: tenderness, pedal edema, joint swelling, calf tenderness Back exam: Present: normal inspection Neurological exam: Present: alert, oriented X3, CN II-XII intact Psychiatric exam: Present: normal affect, normal mood Skin exam: Present: warm, dry, intact, normal color. Absent: rash Course Vital Signs 05/15/17 05/15/17 08:43 09:46 Temperature 97.8 F Pulse Rate 46 L 48 L Respiratory 17 18 Rate Blood Pressure 145/73 137/96 O2 Sat by Pulse 96 97 Oximetry EKG Findings - EKG Comments: EKG Findings:: EKG shows sinus tachycardia rate of 48, CA 166, QRS 80, QTC 416 Medical Decision Making - Medical Decision Making 66 male to the ER for evaluation of chest pain. Anterior chest pain episodic chest pain shortness of breath. Recent cardiac event with stent, patient will be admitted for cardiac observation - Lab Data Result diagrams: 05/15/17 08:52 05/15/17 08:52 Lab Results 05/15/17 05/15/17 05/15/17 Range/Units 08:52 08:52 08:52 WBC 9.0 (3.8-10.6) k/uL RBC 5.42 (4.30-5.90) m/uL Hgb 16.4 (13.0-17.5) gm/dL Hct 45.4 (39.0-53.0) % MCV 83.9 (80.0-100.0) fL MCH 30.2 (25.0-35.0) pg MCHC 36.1 (31.0-37.0) g/dL RDW 14.6 (11.5-15.5) % Plt Count 143 L (150-450) k/uL Neutrophils % 71 % Lymphocytes % 19 % Monocytes % 5 % Eosinophils % 3 % Basophils % 1 % Neutrophils # 6.4 (1.3-7.7) k/uL Lymphocytes # 1.7 (1.0-4.8) k/uL Monocytes # 0.4 (0-1.0) k/uL Eosinophils # 0.3 (0-0.7) k/uL Basophils # 0.1 (0-0.2) k/uL PT (9.0-12.0) sec INR (<1.2) APTT (22.0-30.0) sec Sodium 140 (137-145) mmol/L Potassium 3.5 (3.5-5.1) mmol/L Chloride 106 (98-107) mmol/L Carbon Dioxide 23 (22-30) mmol/L Anion Gap 11 mmol/L BUN 18 (9-20) mg/dL Creatinine 1.01 (0.66-1.25) mg/dL Est GFR (MDRD) Af Amer >60 (>60 ml/min/1.73 sqM) Est GFR (MDRD) Non-Af >60 (>60 ml/min/1.73 sqM) Glucose 126 H (74-99) mg/dL Calcium 9.2 (8.4-10.2) mg/dL Magnesium 1.7 (1.6-2.3) mg/dL Total Bilirubin 0.9 (0.2-1.3) mg/dL AST 28 (17-59) U/L ALT 48 (21-72) U/L Alkaline Phosphatase 79 (38-126) U/L Total Creatine Kinase 178 H (55-170) U/L CK-MB (CK-2) 2.0 (0.0-2.4) ng/mL CK-MB (CK-2) Rel Index 1.1 Troponin I 0.018 (0.000-0.034) ng/mL Total Protein 6.3 (6.3-8.2) g/dL Albumin 4.0 (3.5-5.0) g/dL Lipase 61 (23-300) U/L 05/15/17 Range/Units 08:52 WBC (3.8-10.6) k/uL RBC (4.30-5.90) m/uL Hgb (13.0-17.5) gm/dL Hct (39.0-53.0) % MCV (80.0-100.0) fL MCH (25.0-35.0) pg MCHC (31.0-37.0) g/dL RDW (11.5-15.5) % Plt Count (150-450) k/uL Neutrophils % % Lymphocytes % % Monocytes % % Eosinophils % % Basophils % % Neutrophils # (1.3-7.7) k/uL Lymphocytes # (1.0-4.8) k/uL Monocytes # (0-1.0) k/uL Eosinophils # (0-0.7) k/uL Basophils # (0-0.2) k/uL PT 10.4 (9.0-12.0) sec INR 1.0 (<1.2) APTT 24.1 (22.0-30.0) sec Sodium (137-145) mmol/L Potassium (3.5-5.1) mmol/L Chloride (98-107) mmol/L Carbon Dioxide (22-30) mmol/L Anion Gap mmol/L BUN (9-20) mg/dL Creatinine (0.66-1.25) mg/dL Est GFR (MDRD) Af Amer (>60 ml/min/1.73 sqM) Est GFR (MDRD) Non-Af (>60 ml/min/1.73 sqM) Glucose (74-99) mg/dL Calcium (8.4-10.2) mg/dL Magnesium (1.6-2.3) mg/dL Total Bilirubin (0.2-1.3) mg/dL AST (17-59) U/L ALT (21-72) U/L Alkaline Phosphatase (38-126) U/L Total Creatine Kinase (55-170) U/L CK-MB (CK-2) (0.0-2.4) ng/mL CK-MB (CK-2) Rel Index Troponin I (0.000-0.034) ng/mL Total Protein (6.3-8.2) g/dL Albumin (3.5-5.0) g/dL Lipase (23-300) U/L - Radiology Data Radiology results: report reviewed (Chest x-ray is negative for acute disease), image reviewed Critical Care Time Critical Care Time: Yes Total Critical Care Time: 31 Disposition Clinical Impression: Chest pain, S/P right coronary artery (RCA) stent placement Disposition: [facility] Referrals: Brian Bradley MD [Primary Care Provider] - 1-2 days
[2017-05-15 09:18] LABS: ALT 48 U/L (21-72); AST 28 U/L (17-59); Alkaline Phosphatase 79 U/L (38-126); Anion Gap 11 mmol/L; Blood Urea Nitrogen 18 mg/dL (9-20); Calcium 9.2 mg/dL (8.4-10.2); Carbon Dioxide 23 mmol/L (22-30); Chloride 106 mmol/L (98-107); Glucose 126 mg/dL (74-99); Magnesium 1.7 mg/dL (1.6-2.3); Non-African American GFR(MDRD) >60 (>60 ml/min/1.73 sqM); Potassium 3.5 mmol/L (3.5-5.1); Sodium 140 mmol/L (137-145); Total Bilirubin 0.9 mg/dL (0.2-1.3); Total Protein 6.3 g/dL (6.3-8.2)
[2017-05-15] MEDS ORDERED: LORazepam 2 MG/ML SYRINGE IM STA (09:21)
[2017-05-15] MEDS ORDERED: diphenhydrAMINE 50 MG/ML 1 ML VIAL IM STA (09:21)
[2017-05-15 09:24] LABS: Partial Thromboplastin Time 24.1 sec (22.0-30.0); Prothrombin Time 10.4 sec (9.0-12.0)
--- NOTE | 2017-05-15 09:37 | XR ---
EXAMINATION TYPE: XR chest 2V DATE OF EXAM: 05/15/2017 COMPARISON: 01/21/2017 INDICATION: Chest pain TECHNIQUE: Frontal and lateral views of the chest are obtained. FINDINGS: The heart size is normal. The pulmonary vasculature is normal. The lungs are clear. IMPRESSION: 1. No acute pulmonary process.
[2017-05-15 09:51] LABS: Troponin I 0.018 ng/mL (0.000-0.034)
[2017-05-15] MEDS ORDERED: NITROGLYCERIN SL TABS 0.4 MG TAB SUBLINGUAL PRN (10:35)
[2017-05-15] MEDS ORDERED: HEPARIN SODIUM,PORCINE 5,000 UNIT/ML 1 ML VIAL IV ONE (10:35)
[2017-05-15] MEDS ORDERED: ASPIRIN 81 MG CHEW PO STA (10:35)
[2017-05-15] MEDS ORDERED: HEPARIN SODIUM,PORCINE 5,000 UNIT/ML 1 ML VIAL IV PRN (10:35)
[2017-05-15] MEDS: HEPARIN SODIUM,PORCINE/D5W PMX 25,000 UNIT in DEXTROSE/WATER 1 500ML.BAG IV SCH (10:53)
[2017-05-15 16:42] LABS: Creatine Kinase MB 1.7 ng/mL (0.0-2.4); Troponin I 0.019 ng/mL (0.000-0.034)
[2017-05-15 16:57] VITALS: RESP 18
[2017-05-15 21:24] LABS: Creatine Kinase MB 1.5 ng/mL (0.0-2.4); Troponin I 0.022 ng/mL (0.000-0.034)
[2017-05-15] MEDS: PANTOPRAZOLE 40 MG TABLET PO SCH (22:27)
[2017-05-15] MEDS: amLODIPine 5 MG TAB PO SCH (22:27)
[2017-05-15] MEDS: ASPIRIN 81 MG CHEW PO SCH (22:27)
--- NOTE | 2017-05-15 22:32 | P.HPIM ---
History of Present Illness H&P Date: 05/15/17 Chief Complaint: Chest pain History of presenting complaint: This is a pleasant 66-year-old patient of Dr. Bradley. In December of this year patient had an acute NM with a stent to the RCA. Patient [facility] a [facility] Chronic stable medical conditions include asthma, GERD, hypertension, osteoarthritis, obstructive sleep apnea, hypothyroid, depression, hypertensive heart disease. For 3 weeks patient's been noticing some chest pressure with exertion on different times. Also has noticed some left arm and neck discomfort even at rest. Today at work she broke out in a sweat and also some chest pressure to some nitro. Of late patient notices becoming more and more anxious. Has patient decided to come in. GEN.: Tired EYES: None HEENT: None NECK: None RESPIRATORY: None CARDIOVASCULAR: As above GASTROINTESTINAL: None GENITOURINARY: None MUSCULOSKELETAL: None LYMPHATICS: None HEMATOLOGICAL: None PSYCHIATRY: Rather anxious] NEUROLOGICAL: None Past medical history: Coronary artery disease with stent to RCA in December 2016, asthma, GERD, hypertension, osteoarthritis, obstructive sleep apnea, hypothyroid, depression, hypertensive heart disease. Past surgical history: Adenoidectomy, cardiac cath with stent as above, bilateral carpal tunnel release , colonoscopy, circumcision, vasectomy Home medications reviewed in the computer ALLERGIES: Pseudoephedrine Social history: Does not smoke or drink alcohol-rarely. Works at [employer]. Family history: Colon cancer on mother's side, macular degeneration. VITAL SIGNS: 97 8, 46, 17, 145/73, bands 6% 2 L GENERAL: Average built, sitting up, comfortable. EYES: Pupils equal. Conjunctiva normal. HEENT: External appearance of nose and ears normal, oral cavity grossly normal. NECK: JVD not raised; masses not palpable. HEART: First and second heart sounds are normal; no edema. LUNGS: Respiratory rate normal; clear to auscultation. ABDOMEN: Soft, nontender, liver spleen not palpable, no masses palpable. LYMPHATICS: No lymph nodes palpable in the axilla and neck. PSYCH: Alert and oriented x3; mood and affect slightly anxiousl. NEUROLOGICAL: Cranial nerves grossly intact; no facial asymmetry, power and sensation grossly intact. Investigations: White count 9, hemoglobin 16.4, potassium 3.5, Troponin-0.018, 0.019, 0.0-2 EKG sinus bradycardia Assessment: -Unstable angina with symptoms progressive in a patient with known coronary artery disease with stent to the RCA in December 2016 Intermittent asthma -GERD -Essential hypertension -Primary osteoarthritis in different joints -Obstructive sleep apnea uses CPAP -Hypothyroidism -Anxiety we'll start not otherwise specified uncontrolled Depression not otherwise specified Plan: Home medications are resumed. Cardiology was consulted. Started on IV heparin. We'll start the patient on Paxil 20 mg a day. Care was discussed in detail. Past Medical History Past Medical History: Asthma, Coronary Artery Disease (CAD), Chest Pain / Angina , GERD/Reflux, Hyperlipidemia, Hypertension, Myocardial Infarction (NM), Osteoarthritis (OA), Pneumonia, Sleep Apnea/CPAP/BIPAP, Thyroid Disorder Additional Past Medical History / Comment(s): 01/12/17 inferior wall NM/ hypokalemia, arthritis bilateral knees and hands, back pain, SARAH with CPAP use, decreased immune system, several pneumonias, bronchitis, sinus problems, hayfever, hypothyroid, nephrolithiasis, past elevated liver enzymes. Last Myocardial Infarction Date:: 01/12/17 History of Any Multi-Drug Resistant Organisms: None Reported Past Surgical History: Adenoidectomy, Heart Catheterization, Heart Catheterization With Stent, Tonsillectomy Additional Past Surgical History / Comment(s): 01/12/17 PCI with stent to RCA, bilateral carpal tunnel releases; pil cyst on tailbone X2, colonoscopies, circumcism, vasectomy. Past Anesthesia/Blood Transfusion Reactions: No Reported Reaction Additional Past Anesthesia/Blood Transfusion Reaction / Comment(s): states diff to arouse sometimes Date of Last Stent Placement:: 2016 Smoking Status: Former smoker - Past Family History Father Family Medical History: CVA/TIA, Eye Disorder, Vascular Disorder Additional Family Medical History / Comment(s): CVA, glaucoma, severe circulation problems, macular degeneration, dry eyes. Mother Family Medical History: Cancer, Eye Disorder Additional Family Medical History / Comment(s): Colon cancer, macular degeneration. Colon cancer runs on pt's mother's side of family. Medications and Allergies Home Medications Medication Instructions Recorded Confirmed Type Cholecalciferol [Vitamin D3] 5,000 unit PO DAILY 06/03/16 05/15/17 History Fluticasone/Vilanterol [Breo 1 puff INHALATION RT-DAILY 06/03/16 05/15/17 History Ellipta 100-25 Mcg Inhaler] Losartan/Hydrochlorothiazide 1 tab PO DAILY 06/03/16 05/15/17 History [Hyzaar 100-25 Tablet] Sertraline [Zoloft] 100 mg PO DAILY 06/03/16 05/15/17 History Atenolol [Tenormin] 12.5 mg PO DAILY 01/12/17 05/15/17 History Levothyroxine Sodium [Synthroid] 25 mcg PO DAILY 01/12/17 05/15/17 History Omeprazole [PriLOSEC] 40 mg PO HS 01/12/17 05/15/17 History Aspirin 81 mg PO HS 05/15/17 05/15/17 History Atorvastatin [Lipitor] 40 mg PO HS 05/15/17 05/15/17 History Loratadine [Claritin] 10 mg PO HS 05/15/17 05/15/17 History amLODIPine [Norvasc] 5 mg PO HS 05/15/17 05/15/17 History Allergies Allergy/AdvReac Type Severity Reaction Status Date / Time pseudoephedrine sulfate AdvReac Rapid Verified 05/15/17 09:43 [From Claritin-D] Heart Rate Results CBC & Chem 7: 05/15/17 08:52 05/15/17 08:52
[2017-05-16 05:30] LABS: Cholesterol 104 mg/dL (<200); HDL Cholesterol 37 mg/dL (40-60)
[2017-05-16] MEDS ORDERED: LEVOTHYROXINE 25 MCG TAB PO SCH (07:30)
[2017-05-16] MEDS ORDERED: SYMBICORT 80-4.5 MCG INHALER INHALATION SCH (08:00)
[2017-05-16] MEDS: HEPARIN SODIUM,PORCINE/D5W PMX 25,000 UNIT in DEXTROSE/WATER 1 500ML.BAG IV SCH (08:01)
--- NOTE | 2017-05-16 08:34 | P.CRDCN ---
<Triny Chapman E - Last Filed: 05/16/17 08:12> History of Present Illness Consult date: 05/16/17 Requesting physician: Morteza Amaya Consult reason: chest pain Chief complaint: Chest pain History of present illness: This is a 66-year-old gentleman with history of hypertension, hyperlipidemia, prior history of smoking coronary artery disease with ST elevation myocardial infarction in December of this year at which time the patient underwent angioplasty and stenting of the right coronary artery. Patient presents to the hospital on this occasion with symptoms of midsternal chest pressure with associated left arm and jaw discomfort. Patient states he had his initial episode approximately 3 weeks ago, he was walking up a hill carrying some lawn chairs when he developed symptoms. He took a sublingual nitroglycerin on arrival home and for the next couple of days did well. He states that he has been working every day, again at work he developed similar symptoms, relieved with nitroglycerin. Patient also states he was at a meeting the other night had symptoms, took nitroglycerin and went home. Yesterday patient had planned on doing a few things at work and then trying to go into see Dr. Keita in the office. He again developed significant symptoms of chest discomfort with left arm discomfort, jaw discomfort and significant diaphoresis, EMS was called and patient was brought to the emergency room for further evaluation. EKG on arrival showed a normal sinus rhythm with no acute changes. Troponins 0.018, 0.019, 0.022. CBC normal. Potassium 3.5, BUN 18, creatinine 1.0. At the time of my examination this morning he is currently chest pain-free. On IV heparin. Past Medical History Past Medical History: Asthma, Coronary Artery Disease (CAD), Chest Pain / Angina , GERD/Reflux, Hyperlipidemia, Hypertension, Myocardial Infarction (GA), Osteoarthritis (OA), Pneumonia, Sleep Apnea/CPAP/BIPAP, Thyroid Disorder Additional Past Medical History / Comment(s): 01/12/17 inferior wall [place]/ hypokalemia, arthritis bilateral knees and hands, back pain, SARAH with CPAP use, decreased immune system, several pneumonias, bronchitis, sinus problems, hayfever, hypothyroid, nephrolithiasis, past elevated liver enzymes. Last Myocardial Infarction Date:: 01/12/17 History of Any Multi-Drug Resistant Organisms: None Reported Past Surgical History: Adenoidectomy, Heart Catheterization, Heart Catheterization With Stent, Tonsillectomy Additional Past Surgical History / Comment(s): 01/12/17 PCI with stent to RCA, bilateral carpal tunnel releases; pil cyst on tailbone X2, colonoscopies, circumcism, vasectomy. Past Anesthesia/Blood Transfusion Reactions: No Reported Reaction Additional Past Anesthesia/Blood Transfusion Reaction / Comment(s): states diff to arouse sometimes Date of Last Stent Placement:: 2016 Smoking Status: Former smoker - Past Family History Father Family Medical History: CVA/TIA, Eye Disorder, Vascular Disorder Additional Family Medical History / Comment(s): CVA, glaucoma, severe circulation problems, macular degeneration, dry eyes. Mother Family Medical History: Cancer, Eye Disorder Additional Family Medical History / Comment(s): Colon cancer, macular degeneration. Colon cancer runs on pt's mother's side of family. Medications and Allergies Home Medications Medication Instructions Recorded Confirmed Type Cholecalciferol [Vitamin D3] 5,000 unit PO DAILY 06/03/16 05/15/17 History Fluticasone/Vilanterol [Breo 1 puff INHALATION RT-DAILY 06/03/16 05/15/17 History Ellipta 100-25 Mcg Inhaler] Losartan/Hydrochlorothiazide 1 tab PO DAILY 06/03/16 05/15/17 History [Hyzaar 100-25 Tablet] Sertraline [Zoloft] 100 mg PO DAILY 06/03/16 05/15/17 History Atenolol [Tenormin] 12.5 mg PO DAILY 01/12/17 05/15/17 History Levothyroxine Sodium [Synthroid] 25 mcg PO DAILY 01/12/17 05/15/17 History Omeprazole [PriLOSEC] 40 mg PO HS 01/12/17 05/15/17 History Aspirin 81 mg PO HS 05/15/17 05/15/17 History Atorvastatin [Lipitor] 40 mg PO HS 05/15/17 05/15/17 History Loratadine [Claritin] 10 mg PO HS 05/15/17 05/15/17 History amLODIPine [Norvasc] 5 mg PO HS 05/15/17 05/15/17 History Allergies Allergy/AdvReac Type Severity Reaction Status Date / Time pseudoephedrine sulfate AdvReac Rapid Verified 05/15/17 09:43 [From Claritin-D] Heart Rate Physical Exam Vitals: Vital Signs Temp Pulse Pulse Resp BP BP Pulse Ox 05/16/17 00:00 99.4 F 52 L 18 131/70 96 05/15/17 20:00 99.0 F 53 L 18 128/69 95 05/15/17 16:56 98.4 F 46 L 18 136/81 94 L 05/15/17 16:38 97.8 F 05/15/17 16:33 51 L 17 128/69 98 05/15/17 15:20 51 L 18 128/69 98 05/15/17 14:04 52 L 17 132/62 96 05/15/17 13:00 58 L 17 98 05/15/17 10:39 48 L 17 138/65 96 05/15/17 09:46 48 L 18 137/96 97 05/15/17 08:43 97.8 F 46 L 17 145/73 96 Intake and Output 05/15/17 05/16/17 05/16/17 22:59 06:59 14:59 Intake Total 443.541 258.448 34.011 Balance 443.541 258.448 34.011 Intake: Intake, IV Titration 207.541 258.448 34.011 Amount Heparin Sodium,Porcine/ 207.541 258.448 34.011 D5w Pmx 25,000 unit In Dextrose/Water 1 500ml. bag @ 20 mls/hr IV .Q24H [facility] Rx#:[id number] Oral 236 Other: Weight 110.1 kg PHYSICAL EXAMINATION: HEENT: Head is atraumatic, normocephalic. Pupils equal, round. Neck is supple. There is no elevated jugular venous pressure. HEART EXAMINATION: Heart S1, S2 normal. No murmur or gallop heard. CHEST EXAMINATION: Lungs are clear to auscultation and precussion. No chest wall tenderness is noted on palpation or with deep breathing. ABDOMEN: Soft, nontender. Bowel sounds are heard. No organomegaly noted. EXTREMITIES: 2+ peripheral pulses with no evidence of peripheral edema and no calf tenderness noted. NEUROLOGIC patient is awake, alert and oriented -3. . Results 05/16/17 04:42 05/15/17 08:52 Cardiac Enzymes 05/15/17 05/15/17 05/15/17 Range/Units 08:52 08:52 15:39 AST 28 (17-59) U/L CK-MB (CK-2) 2.0 1.7 (0.0-2.4) ng/mL Troponin I 0.018 0.019 (0.000-0.034) ng/mL 05/15/17 Range/Units 20:33 AST (17-59) U/L CK-MB (CK-2) 1.5 (0.0-2.4) ng/mL Troponin I 0.022 (0.000-0.034) ng/mL Coagulation 05/15/17 05/15/17 05/16/17 Range/Units 08:52 18:05 04:42 PT 10.4 (9.0-12.0) sec APTT 24.1 28.7 32.6 H (22.0-30.0) sec Lipids 05/16/17 Range/Units 04:42 Triglycerides 136 (<150) mg/dL Cholesterol 104 (<200) mg/dL HDL Cholesterol 37 L (40-60) mg/dL CBC 05/15/17 05/16/17 Range/Units 08:52 04:42 WBC 9.0 (3.8-10.6) k/uL RBC 5.42 (4.30-5.90) m/uL Hgb 16.4 (13.0-17.5) gm/dL Hct 45.4 (39.0-53.0) % Plt Count 143 L 143 L (150-450) k/uL Comprehensive Metabolic Panel 05/15/17 Range/Units 08:52 Sodium 140 (137-145) mmol/L Potassium 3.5 (3.5-5.1) mmol/L Chloride 106 (98-107) mmol/L Carbon Dioxide 23 (22-30) mmol/L BUN 18 (9-20) mg/dL Creatinine 1.01 (0.66-1.25) mg/dL Glucose 126 H (74-99) mg/dL Calcium 9.2 (8.4-10.2) mg/dL AST 28 (17-59) U/L ALT 48 (21-72) U/L Alkaline Phosphatase 79 (38-126) U/L Total Protein 6.3 (6.3-8.2) g/dL Albumin 4.0 (3.5-5.0) g/dL Current Medications Generic Name Dose Route Start Last Admin Trade Name Freq PRN Reason Stop Dose Admin Amlodipine Besylate 5 mg 05/15/17 21:00 05/15/17 22:27 Norvasc PO 5 mg HS JAEL Administration Aspirin 81 mg 05/15/17 21:00 05/15/17 22:27 Aspirin PO 81 mg HS JAEL Administration Atenolol 12.5 mg 05/16/17 09:00 Tenormin PO DAILY [facility] Atorvastatin Calcium 80 mg 05/16/17 09:00 Lipitor PO DAILY [facility] Budesonide/Formoterol Fumarate 2 puff 05/16/17 08:00 Symbicort 80-4.5 Mcg Inhaler INHALATION RT-BID [facility] Cholecalciferol 5,000 unit 05/16/17 09:00 Vitamin D3 PO DAILY [facility] HCTZ/Losartan Potassium 2 each 05/16/17 09:00 Hyzaar 50-12.5 PO DAILY [facility] Heparin Sodium (Porcine) 0 unit 05/15/17 10:35 Heparin IV Q6HR PRN Low PTT Protocol Heparin Sodium/Dextrose 25,000 500 mls @ 20 mls/hr 05/15/17 10:45 05/16/17 08 :01 unit/ IV Solution IV 15.01 units/kg/hr .Q24H JAEL 33.36 mls/hr Protocol Administration Levothyroxine Sodium 25 mcg 05/16/17 07:30 05/16/17 07:12 Synthroid PO 25 mcg AC-BRKFST JAEL Administration Loratadine 10 mg 05/16/17 21:00 Claritin PO HS JAEL Nitroglycerin 0.4 mg 05/15/17 10:35 Nitrostat SUBLINGUAL Q5M PRN Chest Pain Pantoprazole Sodium 40 mg 05/15/17 21:00 05/15/17 22:27 Protonix PO 40 mg HS JAEL Administration Prasugrel 10 mg 05/16/17 09:00 Effient PO DAILY JAEL Sertraline HCl 100 mg 05/16/17 09:00 Zoloft PO DAILY JAEL Intake and Output 05/15/17 05/16/17 05/16/17 22:59 06:59 14:59 Intake Total 443.541 258.448 34.011 Balance 443.541 258.448 34.011 Intake: Intake, IV Titration 207.541 258.448 34.011 Amount Heparin Sodium,Porcine/ 207.541 258.448 34.011 D5w Pmx 25,000 unit In Dextrose/Water 1 500ml. bag @ 20 mls/hr IV .Q24H [facility] Rx#:[id number] Oral 236 Other: Weight 110.1 kg 05/16/17 04:42 05/15/17 08:52 EKG Interpretations (text) EKG shows normal sinus rhythm with evidence of old inferior wall GA Assessment and Plan Plan: Assessment and plan #1 symptoms of chest discomfort with associated left arm pain, jaw discomfort and diaphoresis, suggestive of acute coronary syndrome. Troponins 0.018, 0.019 , 0.022. #2 known history of coronary artery disease with history of inferior STEMI in December status post RCA stent #3 hypertension #4 hyperlipidemia # 5 sleep apnea #6 prior history of smoking Plan We will obtain a repeat echocardiogram with Doppler study. Continue IV heparin. Continue aspirin, Lipitor, beta laurel, Effient 10 mg daily, losartan hydrochlorothiazide. Patient has been advised to undergo repeat cardiac catheterization, the risks and the benefits were Explained to the patient in detail and he is willing to proceed. Further recommendations will be based on these findings and the patient's medical course. DNP note has been reviewed, I agree with a documented findings and plan of care. Patient was seen and examined. <Riky Blackwood - Last Filed: 05/16/17 08:57> Physical Exam Vitals: Vital Signs Temp Pulse Pulse Resp BP BP Pulse Ox 05/16/17 08:41 97.4 F L 47 L 18 132/83 95 05/16/17 04:00 98.3 F 51 L 18 142/75 96 05/16/17 00:00 99.4 F 52 L 18 131/70 96 05/15/17 20:00 99.0 F 53 L 18 128/69 95 05/15/17 16:56 98.4 F 46 L 18 136/81 94 L 05/15/17 16:38 97.8 F 05/15/17 16:33 51 L 17 128/69 98 05/15/17 15:20 51 L 18 128/69 98 05/15/17 14:04 52 L 17 132/62 96 05/15/17 13:00 58 L 17 98 05/15/17 10:39 48 L 17 138/65 96 05/15/17 09:46 48 L 18 137/96 97 Intake and Output 05/15/17 05/16/17 05/16/17 22:59 06:59 14:59 Intake Total 443.541 258.448 154.011 Balance 443.541 258.448 154.011 Intake: Intake, IV Titration 207.541 258.448 34.011 Amount Heparin Sodium,Porcine/ 207.541 258.448 34.011 D5w Pmx 25,000 unit In Dextrose/Water 1 500ml. bag @ 20 mls/hr IV .Q24H [facility] Rx#:[id number] Oral 236 120 Other: Weight 110.1 kg Results 05/16/17 04:42 05/15/17 08:52 Cardiac Enzymes 05/15/17 05/15/17 05/15/17 Range/Units 08:52 08:52 15:39 AST 28 (17-59) U/L CK-MB (CK-2) 2.0 1.7 (0.0-2.4) ng/mL Troponin I 0.018 0.019 (0.000-0.034) ng/mL 05/15/17 Range/Units 20:33 AST (17-59) U/L CK-MB (CK-2) 1.5 (0.0-2.4) ng/mL Troponin I 0.022 (0.000-0.034) ng/mL Coagulation 05/15/17 05/15/17 05/16/17 Range/Units 08:52 18:05 04:42 PT 10.4 (9.0-12.0) sec APTT 24.1 28.7 32.6 H (22.0-30.0) sec Lipids 05/16/17 Range/Units 04:42 Triglycerides 136 (<150) mg/dL Cholesterol 104 (<200) mg/dL HDL Cholesterol 37 L (40-60) mg/dL CBC 05/15/17 05/16/17 Range/Units 08:52 04:42 WBC 9.0 (3.8-10.6) k/uL RBC 5.42 (4.30-5.90) m/uL Hgb 16.4 (13.0-17.5) gm/dL Hct 45.4 (39.0-53.0) % Plt Count 143 L 143 L (150-450) k/uL Comprehensive Metabolic Panel 05/15/17 Range/Units 08:52 Sodium 140 (137-145) mmol/L Potassium 3.5 (3.5-5.1) mmol/L Chloride 106 (98-107) mmol/L Carbon Dioxide 23 (22-30) mmol/L BUN 18 (9-20) mg/dL Creatinine 1.01 (0.66-1.25) mg/dL Glucose 126 H (74-99) mg/dL Calcium 9.2 (8.4-10.2) mg/dL AST 28 (17-59) U/L ALT 48 (21-72) U/L Alkaline Phosphatase 79 (38-126) U/L Total Protein 6.3 (6.3-8.2) g/dL Albumin 4.0 (3.5-5.0) g/dL Current Medications Generic Name Dose Route Start Last Admin Trade Name Freq PRN Reason Stop Dose Admin Amlodipine Besylate 5 mg 05/15/17 21:00 05/15/17 22:27 Norvasc PO 5 mg HS JAEL Administration Aspirin 81 mg 05/15/17 21:00 05/15/17 22:27 Aspirin PO 81 mg HS JAEL Administration Atenolol 12.5 mg 05/16/17 09:00 Tenormin PO DAILY JAEL Atorvastatin Calcium 80 mg 05/16/17 09:00 05/16/17 08:41 Lipitor PO 80 mg DAILY JAEL Administration Budesonide/Formoterol Fumarate 2 puff 05/16/17 08:00 Symbicort 80-4.5 Mcg Inhaler INHALATION RT-BID JAEL Cholecalciferol 5,000 unit 05/16/17 09:00 05/16/17 08:41 Vitamin D3 PO 5,000 unit DAILY JAEL Administration HCTZ/Losartan Potassium 2 each 05/16/17 09:00 05/16/17 08:41 Hyzaar 50-12.5 PO 2 each DAILY JAEL Administration Heparin Sodium (Porcine) 0 unit 05/15/17 10:35 Heparin IV Q6HR PRN Low PTT Protocol Heparin Sodium/Dextrose 25,000 500 mls @ 20 mls/hr 05/15/17 10:45 05/16/17 08 :01 unit/ IV Solution IV 15.01 units/kg/hr .Q24H JAEL 33.36 mls/hr Protocol Administration Levothyroxine Sodium 25 mcg 05/16/17 07:30 05/16/17 07:12 Synthroid PO 25 mcg AC-BRKFST JAEL Administration Loratadine 10 mg 05/16/17 21:00 Claritin PO HS JAEL Nitroglycerin 0.4 mg 05/15/17 10:35 Nitrostat SUBLINGUAL Q5M PRN Chest Pain Pantoprazole Sodium 40 mg 05/15/17 21:00 05/15/17 22:27 Protonix PO 40 mg HS JAEL Administration Prasugrel 10 mg 05/16/17 09:00 05/16/17 08:41 Effient PO 10 mg DAILY JAEL Administration Sertraline HCl 100 mg 05/16/17 09:00 05/16/17 08:41 Zoloft PO 100 mg DAILY JAEL Administration Intake and Output 05/15/17 05/16/17 05/16/17 22:59 06:59 14:59 Intake Total 443.541 258.448 154.011 Balance 443.541 258.448 154.011 Intake: Intake, IV Titration 207.541 258.448 34.011 Amount Heparin Sodium,Porcine/ 207.541 258.448 34.011 D5w Pmx 25,000 unit In Dextrose/Water 1 500ml. bag @ 20 mls/hr IV .Q24H [facility] Rx#:[id number] Oral 236 120 Other: Weight 110.1 kg 05/16/17 04:42 05/15/17 08:52
[2017-05-16] MEDS: LOSARTAN-HCTZ 50-12.5 MG 1 EACH TAB PO SCH (08:41)
[2017-05-16] MEDS: CHOLECALCIFEROL 1,000 UNIT TAB PO SCH (08:41)
[2017-05-16] MEDS: PRASUGREL 10 MG TAB PO SCH (08:41)
[2017-05-16] MEDS: ATORVASTATIN 80 MG TAB PO SCH (08:41)
[2017-05-16] MEDS ORDERED: ALPRAZolam 0.25 MG TAB PO PRN (08:57)
[2017-05-16] MEDS ORDERED: ASPIRIN 325 MG TAB PO STA (08:57)
[2017-05-16] MEDS ORDERED: NITROGLYCERIN SL TABS 0.4 MG TAB SUBLINGUAL PRN (08:57)
[2017-05-16] MEDS ORDERED: SODIUM CHLORIDE 0.9% 1,000 ML in EMPTY BAG 1 BAG IV ONE (08:57)
[2017-05-16] MEDS ORDERED: ATORVASTATIN 80 MG TAB PO STA (08:57)
[2017-05-16] MEDS ORDERED: ALPRAZolam 0.5 MG TAB PO PRN (08:57)
--- NOTE | 2017-05-16 08:57 | P.CRDCN ---
History of Present Illness Consult reason: chest pain History of present illness: 62 for male patient with known coronary artery disease status post stenting earlier this year in December who presents with one episode of exertional chest discomfort similar to his angina but milder in intensity and yet another episode that was treated during a stressful meeting. Vitals are stable he is compliant with his medications examination is normal blood pressure is normal suggest proceed with an angiography to delineate the epicardial coronary anatomy. Discussed with Dr. Keita. Please see Dr. story is full consult Past Medical History Past Medical History: Asthma, Coronary Artery Disease (CAD), Chest Pain / Angina , GERD/Reflux, Hyperlipidemia, Hypertension, Myocardial Infarction ([place]), Osteoarthritis (OA), Pneumonia, Sleep Apnea/CPAP/BIPAP, Thyroid Disorder Additional Past Medical History / Comment(s): 01/12/17 inferior wall [place]/ hypokalemia, arthritis bilateral knees and hands, back pain, SARAH with CPAP use, decreased immune system, several pneumonias, bronchitis, sinus problems, hayfever, hypothyroid, nephrolithiasis, past elevated liver enzymes. Last Myocardial Infarction Date:: 01/12/17 History of Any Multi-Drug Resistant Organisms: None Reported Past Surgical History: Adenoidectomy, Heart Catheterization, Heart Catheterization With Stent, Tonsillectomy Additional Past Surgical History / Comment(s): 01/12/17 PCI with stent to RCA, bilateral carpal tunnel releases; pil cyst on tailbone X2, colonoscopies, circumcism, vasectomy. Past Anesthesia/Blood Transfusion Reactions: No Reported Reaction Additional Past Anesthesia/Blood Transfusion Reaction / Comment(s): states diff to arouse sometimes Date of Last Stent Placement:: 2016 Smoking Status: Former smoker - Past Family History Father Family Medical History: CVA/TIA, Eye Disorder, Vascular Disorder Additional Family Medical History / Comment(s): CVA, glaucoma, severe circulation problems, macular degeneration, dry eyes. Mother Family Medical History: Cancer, Eye Disorder Additional Family Medical History / Comment(s): Colon cancer, macular degeneration. Colon cancer runs on pt's mother's side of family. Medications and Allergies Home Medications Medication Instructions Recorded Confirmed Type Cholecalciferol [Vitamin D3] 5,000 unit PO DAILY 06/03/16 05/15/17 History Fluticasone/Vilanterol [Breo 1 puff INHALATION RT-DAILY 06/03/16 05/15/17 History Ellipta 100-25 Mcg Inhaler] Losartan/Hydrochlorothiazide 1 tab PO DAILY 06/03/16 05/15/17 History [Hyzaar 100-25 Tablet] Sertraline [Zoloft] 100 mg PO DAILY 06/03/16 05/15/17 History Atenolol [Tenormin] 12.5 mg PO DAILY 01/12/17 05/15/17 History Levothyroxine Sodium [Synthroid] 25 mcg PO DAILY 01/12/17 05/15/17 History Omeprazole [PriLOSEC] 40 mg PO HS 01/12/17 05/15/17 History Aspirin 81 mg PO HS 05/15/17 05/15/17 History Atorvastatin [Lipitor] 40 mg PO HS 05/15/17 05/15/17 History Loratadine [Claritin] 10 mg PO HS 05/15/17 05/15/17 History amLODIPine [Norvasc] 5 mg PO HS 05/15/17 05/15/17 History Allergies Allergy/AdvReac Type Severity Reaction Status Date / Time pseudoephedrine sulfate AdvReac Rapid Verified 05/15/17 09:43 [From Claritin-D] Heart Rate Physical Exam Vitals: Vital Signs Temp Pulse Pulse Resp BP BP Pulse Ox 05/16/17 08:41 97.4 F L 47 L 18 132/83 95 05/16/17 04:00 98.3 F 51 L 18 142/75 96 05/16/17 00:00 99.4 F 52 L 18 131/70 96 05/15/17 20:00 99.0 F 53 L 18 128/69 95 05/15/17 16:56 98.4 F 46 L 18 136/81 94 L 05/15/17 16:38 97.8 F 05/15/17 16:33 51 L 17 128/69 98 05/15/17 15:20 51 L 18 128/69 98 05/15/17 14:04 52 L 17 132/62 96 05/15/17 13:00 58 L 17 98 05/15/17 10:39 48 L 17 138/65 96 05/15/17 09:46 48 L 18 137/96 97 Intake and Output 05/15/17 05/16/17 05/16/17 22:59 06:59 14:59 Intake Total 443.541 258.448 154.011 Balance 443.541 258.448 154.011 Intake: Intake, IV Titration 207.541 258.448 34.011 Amount Heparin Sodium,Porcine/ 207.541 258.448 34.011 D5w Pmx 25,000 unit In Dextrose/Water 1 500ml. bag @ 20 mls/hr IV .Q24H [facility] Rx#:[id number] Oral 236 120 Other: Weight 110.1 kg Results 05/16/17 04:42 05/15/17 08:52 Cardiac Enzymes 05/15/17 05/15/17 05/15/17 Range/Units 08:52 08:52 15:39 AST 28 (17-59) U/L CK-MB (CK-2) 2.0 1.7 (0.0-2.4) ng/mL Troponin I 0.018 0.019 (0.000-0.034) ng/mL 05/15/17 Range/Units 20:33 AST (17-59) U/L CK-MB (CK-2) 1.5 (0.0-2.4) ng/mL Troponin I 0.022 (0.000-0.034) ng/mL Coagulation 05/15/17 05/15/17 05/16/17 Range/Units 08:52 18:05 04:42 PT 10.4 (9.0-12.0) sec APTT 24.1 28.7 32.6 H (22.0-30.0) sec Lipids 05/16/17 Range/Units 04:42 Triglycerides 136 (<150) mg/dL Cholesterol 104 (<200) mg/dL HDL Cholesterol 37 L (40-60) mg/dL CBC 05/15/17 05/16/17 Range/Units 08:52 04:42 WBC 9.0 (3.8-10.6) k/uL RBC 5.42 (4.30-5.90) m/uL Hgb 16.4 (13.0-17.5) gm/dL Hct 45.4 (39.0-53.0) % Plt Count 143 L 143 L (150-450) k/uL Comprehensive Metabolic Panel 05/15/17 Range/Units 08:52 Sodium 140 (137-145) mmol/L Potassium 3.5 (3.5-5.1) mmol/L Chloride 106 (98-107) mmol/L Carbon Dioxide 23 (22-30) mmol/L BUN 18 (9-20) mg/dL Creatinine 1.01 (0.66-1.25) mg/dL Glucose 126 H (74-99) mg/dL Calcium 9.2 (8.4-10.2) mg/dL AST 28 (17-59) U/L ALT 48 (21-72) U/L Alkaline Phosphatase 79 (38-126) U/L Total Protein 6.3 (6.3-8.2) g/dL Albumin 4.0 (3.5-5.0) g/dL Current Medications Generic Name Dose Route Start Last Admin Trade Name Freq PRN Reason Stop Dose Admin Amlodipine Besylate 5 mg 05/15/17 21:00 05/15/17 22:27 Norvasc PO 5 mg HS JAEL Administration Aspirin 81 mg 05/15/17 21:00 05/15/17 22:27 Aspirin PO 81 mg HS JAEL Administration Atenolol 12.5 mg 05/16/17 09:00 Tenormin PO DAILY [facility] Atorvastatin Calcium 80 mg 05/16/17 09:00 05/16/17 08:41 Lipitor PO 80 mg DAILY JAEL Administration Budesonide/Formoterol Fumarate 2 puff 05/16/17 08:00 Symbicort 80-4.5 Mcg Inhaler INHALATION RT-BID JAEL Cholecalciferol 5,000 unit 05/16/17 09:00 05/16/17 08:41 Vitamin D3 PO 5,000 unit DAILY JAEL Administration HCTZ/Losartan Potassium 2 each 05/16/17 09:00 05/16/17 08:41 Hyzaar 50-12.5 PO 2 each DAILY JAEL Administration Heparin Sodium (Porcine) 0 unit 05/15/17 10:35 Heparin IV Q6HR PRN Low PTT Protocol Heparin Sodium/Dextrose 25,000 500 mls @ 20 mls/hr 05/15/17 10:45 05/16/17 08 :01 unit/ IV Solution IV 15.01 units/kg/hr .Q24H JAEL 33.36 mls/hr Protocol Administration Levothyroxine Sodium 25 mcg 05/16/17 07:30 05/16/17 07:12 Synthroid PO 25 mcg AC-BRKFST JAEL Administration Loratadine 10 mg 05/16/17 21:00 Claritin PO HS JAEL Nitroglycerin 0.4 mg 05/15/17 10:35 Nitrostat SUBLINGUAL Q5M PRN Chest Pain Pantoprazole Sodium 40 mg 05/15/17 21:00 05/15/17 22:27 Protonix PO 40 mg HS JAEL Administration Prasugrel 10 mg 05/16/17 09:00 05/16/17 08:41 Effient PO 10 mg DAILY JAEL Administration Sertraline HCl 100 mg 05/16/17 09:00 05/16/17 08:41 Zoloft PO 100 mg DAILY JAEL Administration Intake and Output 05/15/17 05/16/17 05/16/17 22:59 06:59 14:59 Intake Total 443.541 258.448 154.011 Balance 443.541 258.448 154.011 Intake: Intake, IV Titration 207.541 258.448 34.011 Amount Heparin Sodium,Porcine/ 207.541 258.448 34.011 D5w Pmx 25,000 unit In Dextrose/Water 1 500ml. bag @ 20 mls/hr IV .Q24H [facility] Rx#:[id number] Oral 236 120 Other: Weight 110.1 kg 05/16/17 04:42 05/15/17 08:52
[2017-05-16] MEDS ORDERED: SERTRALINE 100 MG TAB PO SCH (09:00)
[2017-05-16] MEDS ORDERED: ASPIRIN 325 MG TAB PO SCH (09:00)
[2017-05-16] MEDS: ATENOLOL 12.5 MG TAB PO SCH (09:11)
[2017-05-16] MEDS: ASPIRIN 81 MG CHEW PO SCH (09:24)
[2017-05-16] MEDS ORDERED: IV FLUID CONTINUATION 550 ML IV ONE (09:37)
[2017-05-16] MEDS ORDERED: MIDAZOLAM 2 MG/2 ML VIAL ONE (09:51)
[2017-05-16] MEDS ORDERED: diphenhydrAMINE 50 MG/ML 1 ML VIAL ONE (09:51)
[2017-05-16] MEDS ORDERED: MIDAZOLAM 2 MG/2 ML VIAL IV ONE (10:02)
[2017-05-16] MEDS ORDERED: diphenhydrAMINE 50 MG/ML 1 ML VIAL IVP ONE (10:04)
[2017-05-16] MEDS ORDERED: LIDOCAINE 2% INJ 20 MG/ML SQ ONE (10:05)
[2017-05-16] MEDS ORDERED: RX INFO: IV CONTRAST WAS GIVEN 1 EACH MISC MISCELLANE PRN (10:27)
[2017-05-16] MEDS ORDERED: IOHEXOL 350 MG/ML 125ML BOTTLE INJ ONE (10:29)
--- NOTE | 2017-05-16 10:36 | P.PCN ---
Date of Procedure: 05/16/17 Preoperative Diagnosis: Unstable angina Postoperative Diagnosis: Patent stent in the right coronary artery Procedure(s) Performed: Left heart catheterization without left ventriculography Implants: Indications for Procedure: Operative Findings: Description of Procedure: HISTORY: This is a 66-year-old gentleman who had stent placement of the RCA in the setting of acute inferior wall [place] in December of this year. Patient has been under a lot of stress and has been having intermittent chest pains. Patient is admitted yesterday with symptoms of unstable angina. His cardiac enzymes and EKGs were normal. However because of typical chest pains and history of recent stent placement, a cardiac catheterization is requested. CONSENT:I have discussed the risks, benefits and alternative therapies for the above-mentioned procedure and for both sedation/analgesia as well as necessary blood product administration, if indicated, as they pertain to this patient. The patient has indicated understanding and acceptance of the risks and procedures discussed. PROCEDURE: Patient was brought to the lab in a fasting state. Patient was given some IV sedation. The right groin is infiltrated with lidocaine and right femoral artery was entered using Seldinger technique. A 6-Persian catheter was left in place and selective coronary arteriography and left ventriculography was performed. Patient tolerated the procedure well. Femoral angiogram was performed and Angio-Seal was applied for hemostasis. No immediate complications were noted and patient was transferred to [facility] in a stable condition Conscious Sedation: Versed :1 mg Fentanyl [] g Duration [16]minutes HEMODYNAMICS: The aortic pressure is 130/70. Left ankle end-diastolic pressure is about 10-15. There was no gradient across the aortic valve. SELECTIVE CORONARY ARTERIOGRAPHY: LEFT MAIN: Normal length and patent. THE LEFT ANTERIOR DESCENDING CORONARY ARTERY: This is a good caliber vessel with mild irregularities in the proximal portion. He did use ice to 2 diagonal branches. The LAD and its branches are free of any occlusive disease THE LEFT CIRCUMFLEX AND IS CORONARY ARTERY: . This is a dominant vessel giving rise to 2 OM branches and also PLV branch. The first OM branches. Mild plaque in the proximal portion. Second OM also has mild plaque. There is no critical lesion in the circumflex system. THE RIGHT CORONARY ARTERY: The right coronary artery is also a good caliber vessel and patent at the site of previous stent placement. LEFT VENTRICULOGRAPHY: Not performed FINAL IMPRESSION: . Patent stent in the RCA. Mild disease in the LAD and circumflex system. PLAN: Continuation maximum medical therapy and risk factor modification. Symptomatically treatment PROGNOSIS: Good
[2017-05-16] MEDS: SODIUM CHLORIDE 0.9% 1,000 ML IV SCH ×2 (11:10→22:43)
--- NOTE | 2017-05-16 14:53 | P.PN ---
<Shayla Watkins - Last Filed: 05/16/17 14:39> Progress Note - Text DATE OF SERVICE: 05/16/2017 PRESENTING COMPLAINT: Chest pain INTERVAL HISTORY: This a 66-year-old patient with a history of acute SC and a stent to the RCA in December of this year. Has had chest pressure for the previous 3 weeks with exertion at varying times. Noted some left arm and neck discomfort at rest. At work patient broke out in a sweat with some chest pressure. 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 No acute complaints, patient appears comfortable lying flat. Appetite been good, tolerating diet 75-100% of his meals. Last BM 05/14/2017. REVIEW OF SYSTEMS: Done for constitutional ,cardiovascular, GI, pulmonary with relevant findings as above. CURRENT MEDICATIONS Xanax, Norvasc, Tenormin, Lipitor, Protonix, Effient, Zoloft. PHYSICAL EXAM VITAL SIGNS: Temperature 97.4, pulse 47, respiratory rate 18, blood pressure 132/83, oxygen saturation 95% on room air. GENERAL APPEARANCE: Lying in bed, not in distress, somewhat sleepy EYES: Pupils equal. Conjunctiva normal. NECK: JVD not raised. Mass not palpable. RESPIRATORY: Respiratory effort normal. Lungs clear to auscultation. CARDIOVASCULAR: First and second sounds normal. No edema. ABDOMEN: Soft. Liver and spleen not palpable. No tenderness. No mass palpable. PSYCHIATRY: Alert and oriented x3. Mood and affect normal, somewhat sleepy. INTEGUMENT: Right groin puncture site clean dry and intact, no dressing noted, no swelling or hematoma. INVESTIGATIONS: Platelet count 143, triglycerides 136, cholesterol 104, LDL cholesterol 40, HDL cholesterol 37. 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 Echocardiogram with Doppler pending. Plan of care discussed with patient the bedside. Discharge planning 24-48 hours. We'll continue to monitor closely FRAMER statement: Patient was seen and examined by nurse practitioner Shayla Watkins and all elements of the case discussed with attending Dr. Amaya <Morteza Amaya - Last Filed: 05/16/17 22:29> Progress Note - Text Date of service 05/16/2017 Attending note This patient was seen and examined by me today. I discuss with my nurse practitioner Miss Watkins. Patient admitted with chest pain. Cardiac Showed patent stent. Patient been having a lot of anxiety. This well could be psychosomatic. Patient feels overall much better and relaxed now. On examination: Lungs-clear, cardiovascular first seconds are normal, psych AO 3 Investigations: TSH 5.00 Assessment and plan: -Chest pain could be psychosomatic from uncontrolled anxiety. We'll start the patient on Paxil 20 mg a day. DC Zoloft -Uncontrolled hypothyroid-increase Synthroid to 50 g a day Care was discussed with the patient. Had the patient look into mindfulness. Questions were answered.
--- NOTE | 2017-05-16 19:36 | ECHOF ---
Referral Reason:assess lvf MEASUREMENTS -------- HEIGHT: 152.4 cm WEIGHT: 109.8 kg BP: 120/60 RVIDd: 2.8 cm (< 3.3) IVSd: 1.1 cm (0.6 - 1.1) LVIDd: 4.8 cm (3.9 - 5.3) LVPWd: 1.4 cm (0.6 - 1.1) IVSs: 1.4 cm LVIDs: 3.7 cm LVPWs: 1.5 cm LA Diam: 4.8 cm (2.7 - 3.8) LAESV Index (A-L): 38.06 ml/m Ao Diam: 3.9 cm (2.0 - 3.7) AV Cusp: 2.2 cm (1.5 - 2.6) LA Diam: 4.7 cm (2.7 - 3.8) MV EXCURSION: 18.742 mm (> 18.000) MV EF SLOPE: 67 mm/s (70 - 150) EPSS: 1.0 cm MV E Jerrod: 0.50 m/s MV DecT: 323 ms MV A Jerrod: 0.51 m/s MV E/A Ratio: 0.97 RAP: 5.00 mmHg RVSP: 12.37 mmHg FINDINGS -------- Sinus rhythm. This was a technically adequate study. There is mild concentric left ventricular hypertrophy. Overall left ventricular systolic function is low-normal with, an EF between 50 - 55 %. The right ventricle is normal in size. LA is midly dilated 29-33ml/m2. The right atrial size is normal. There is mild aortic valve sclerosis. There is no evidence of aortic regurgitation. Mild mitral annular calcification present. Mild mitral regurgitation is present. Mild tricuspid regurgitation present. There is no evidence of pulmonary hypertension. The right ventricular systolic pressure, as measured by Doppler, is 12.37mmHg. There is no pulmonic regurgitation present. The aortic root size is normal. There is no pericardial effusion. CONCLUSIONS -------- 1. There is mild concentric left ventricular hypertrophy. 2. There is no pulmonic regurgitation present. 3. Overall left ventricular systolic function is low-normal with, an EF between 50 - 55 %. 4. LA is midly dilated 29-33ml/m2. 5. There is mild aortic valve sclerosis. 6. Mild mitral annular calcification present. 7. Mild mitral regurgitation is present. 8. Mild tricuspid regurgitation present. 9. There is no evidence of pulmonary hypertension. 10. The right ventricular systolic pressure, as measured by Doppler, is 12.37mmHg. SOLUTIONS ANALYST: Jennie Woodard RDCS
[2017-05-16] MEDS ORDERED: LORATADINE 10 MG TAB PO SCH (21:00)
[2017-05-16] MEDS: amLODIPine 5 MG TAB PO SCH (22:41)
[2017-05-16] MEDS: PANTOPRAZOLE 40 MG TABLET PO SCH (22:41)
[2017-05-16] MEDS: PARoxetine 20 MG TAB PO SCH (22:43)
[2017-05-17] MEDS ORDERED: LEVOTHYROXINE 50 MCG TAB PO SCH (06:30)
[2017-05-17] MEDS: ATENOLOL 12.5 MG TAB PO SCH (08:33)
[2017-05-17] MEDS: CHOLECALCIFEROL 1,000 UNIT TAB PO SCH (08:33)
[2017-05-17] MEDS: LOSARTAN-HCTZ 50-12.5 MG 1 EACH TAB PO SCH (08:33)
[2017-05-17] MEDS: PRASUGREL 10 MG TAB PO SCH (08:33)
[2017-05-17] MEDS: ATORVASTATIN 80 MG TAB PO SCH (08:33)
[2017-05-17] MEDS: PARoxetine 20 MG TAB PO SCH (08:33)
[2017-05-17 12:26] VITALS: BP 141/80; PULSE 54; TEMP 98
--- NOTE | 2017-05-17 15:55 | P.DS ---
<Shayla Watkins - Last Filed: 05/17/17 15:46> Providers Date of admission: 05/16/17 10:27 Expected date of discharge: 05/17/17 Attending physician: Morteza Amaya Consults: 05/15/17 10:35 Consult Physician Urgent Consulting Provider: Tomasa Guerrero Consult Reason/Comments: cp Do you want consulting provider notified?: Yes Primary care physician: Brian Ho [facility] Course: FINAL DIAGNOSES: -Chest pain could be psychosomatic from uncontrolled anxiety. 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 Patient taken to the crime lab analyst revealed patent stent to the RCA. Patient admits to having a lot of anxiety, Paxil added, and additional resources provided. Laboratory revealed elevated TSH and Synthroid adjusted to 50 g a day. No further chest pain, anxiety improved, patient ambulatory in the room and hallway , tolerating his diet eating 100% of his meals, last BM 05/16/2017. Overall condition is stable patient feels ready for discharge. CONSULTANTS: Dr. Criselda Sanchez of cardiology PHYSICAL EXAM: CARDIOVASCULAR: First and second sounds noted no edema RESPIRATORY: Effort normal, lung sounds diminished bilaterally Patient was seen and examined by nurse practitioner Shayla Watkins in all elements of the case discussed with attending Dr. Amaya DISPOSITION: Home to the care of his family. Plan - Discharge Summary New Discharge Prescriptions: New ALPRAZolam [Xanax] 0.5 mg PO Q6HR PRN #20 tab PRN Reason: Moderate Anxiety amLODIPine [Norvasc] 10 mg PO HS #30 tablet Atorvastatin [Lipitor] 80 mg PO DAILY #30 tab Levothyroxine Sodium [Synthroid] 50 mcg PO DAILY@0630 #30 tab PARoxetine [Paxil] 20 mg PO DAILY #30 tab Continue Losartan/Hydrochlorothiazide [Hyzaar 100-25 Tablet] 1 tab PO DAILY Fluticasone/Vilanterol [Breo Ellipta 100-25 Mcg Inhaler] 1 puff INHALATION RT -DAILY Cholecalciferol [Vitamin D3] 5,000 unit PO DAILY Nitroglycerin Sl Tabs [Nitrostat] 0.4 mg SUBLINGUAL Q5M PRN #25 tab PRN Reason: Chest Pain Omeprazole [PriLOSEC] 40 mg PO HS Atenolol [Tenormin] 12.5 mg PO DAILY Prasugrel [Effient] 10 mg PO DAILY #30 tab Aspirin 81 mg PO HS Loratadine [Claritin] 10 mg PO HS Discontinued Sertraline [Zoloft] 100 mg PO DAILY Levothyroxine Sodium [Synthroid] 25 mcg PO DAILY amLODIPine [Norvasc] 5 mg PO HS Atorvastatin [Lipitor] 40 mg PO HS Discharge Medication List Cholecalciferol [Vitamin D3] 5,000 unit PO DAILY 06/03/16 [History] Fluticasone/Vilanterol [Breo Ellipta 100-25 Mcg Inhaler] 1 puff INHALATION RT- DAILY 06/03/16 [History] Losartan/Hydrochlorothiazide [Hyzaar 100-25 Tablet] 1 tab PO DAILY 06/03/16 [ History] Nitroglycerin Sl Tabs [Nitrostat] 0.4 mg SUBLINGUAL Q5M PRN #25 tab 06/04/16 [Rx ] Atenolol [Tenormin] 12.5 mg PO DAILY 01/12/17 [History] Omeprazole [PriLOSEC] 40 mg PO HS 01/12/17 [History] Prasugrel [Effient] 10 mg PO DAILY #30 tab 01/14/17 [Rx] Aspirin 81 mg PO HS 05/15/17 [History] Loratadine [Claritin] 10 mg PO HS 05/15/17 [History] ALPRAZolam [Xanax] 0.5 mg PO Q6HR PRN #20 tab 05/17/17 [Rx] Atorvastatin [Lipitor] 80 mg PO DAILY #30 tab 05/17/17 [Rx] Levothyroxine Sodium [Synthroid] 50 mcg PO DAILY@0630 #30 tab 05/17/17 [Rx] PARoxetine [Paxil] 20 mg PO DAILY #30 tab 05/17/17 [Rx] amLODIPine [Norvasc] 10 mg PO HS #30 tablet 05/17/17 [Rx] Follow up Appointment(s)/Referral(s): Brian Bradley MD [Primary Care Provider] - 05/24/17 9:45 am Zachary Keita MD [STAFF PHYSICIAN] - 10 Days (officce will call with date and time of follow up appointment) Patient Instructions/Handouts: *Surgery [facility] - After Heart Catheterization - Machine Assembler Supervisor Instructions, Heart Healthy Diet (DC) Discharge Disposition: HOME SELF-CARE <Morteza Amaya - Last Filed: 05/17/17 22:54> Hospital Course: Attending note. Date of service-05/17/2017 This patient was seen and examined by me . I reviewed the note of my nurse practitioner, Ms. Watkins. Discussed with her, additional findings as below. Patient with known coronary artery disease presented with chest pain. Cardiac cath was Unremarkable. Symptoms felt to be from psychosomatic from anxiety. Feeling much better today. No cardiac symptoms On examination: Lungs-clear, cardiovascular-first seconds are normal Investigations: Cardiac catheter results noted Assessment and plan: Chest pain likely psychosomatic. From uncontrolled anxiety. Patient yet again counseled patient is already looking into mindfulness. Started on Paxil. Follow-up with his campaign management senior manager and PCP.
== END 2017-05-17 14:16 | disposition home or self-care (01) | DRG 287 ==
LOC: EC 08:39 → 6SEL 10:35 → OBSVTOIN 05-16 10:27
PROVIDERS: ADMIT Hospitalist; ATTEND Hospitalist
PROC: B2111ZZ Fluoroscopy of Multiple Coronary Arteries using Low Osmolar Contrast (ICD-10-PCS; 2017-05-16)
PROC: 4A023N7 Measurement of Cardiac Sampling and Pressure, Left Heart, Percutaneous Approach (ICD-10-PCS; principal; 2017-05-16 09:37)
DX: R07.89 Other chest pain (principal); I11.9 Hypertensive heart disease without heart failure; I25.2 Old myocardial infarction; F32.9 Major depressive disorder, single episode, unspecified; E03.9 Hypothyroidism, unspecified; F41.9 Anxiety disorder, unspecified; J45.20 Mild intermittent asthma, uncomplicated; K21.9 Gastro-esophageal reflux disease without esophagitis; G47.33 Obstructive sleep apnea (adult) (pediatric); I25.10 Atherosclerotic heart disease of native coronary artery without angina pectoris; M17.0 Bilateral primary osteoarthritis of knee; M19.042 Primary osteoarthritis, left hand; E78.00 Pure hypercholesterolemia, unspecified; E78.5 Hyperlipidemia, unspecified; M19.041 Primary osteoarthritis, right hand; Z95.5 Presence of coronary angioplasty implant and graft; Z87.442 Personal history of urinary calculi; Z87.891 Personal history of nicotine dependence; Z79.02 Long term (current) use of antithrombotics/antiplatelets; Z79.82 Long term (current) use of aspirin; Z79.51 Long term (current) use of inhaled steroids; Z79.899 Other long term (current) drug therapy; Z88.8 Allergy status to other drugs, medicaments and biological substances
CPT/HCPCS: 36415; 71020; 80053; 80061; 82550; 82553; 83690; 83735; 84439; 84443; 84484; 85025; 85049; 85379; 85610; 85730; 93005; 93306; 93458; 94760; 96365; 96366; 96376; 99291

== ENCOUNTER 2019-11-19 09:23 | Day surgery (SDC) | payer MEDICARE ==
[2019-11-15 13:45] VITALS: BMI 37.7
[~2019-11-19 09:23] MED LIST: LACTATED RINGERS 1,000 ML IV SCH; LIDOCAINE 1% 20 ML VIAL (10MG/ML) FOR IV START INTRADERMA PRN
[2019-11-19 09:47] VITALS: TEMP 97.9
[2019-11-19] MEDS ORDERED: PROPOFOL 10 MG/ML 20 ML VIAL IV ONE (11:09)
[2019-11-19] MEDS ORDERED: GLYCOPYRROLATE 0.2 MG/ML 2 ML VIAL ONE (11:09)
[2019-11-19] MEDS ORDERED: fentaNYL (PF) 50 MCG/ML 2 ML AMP ONE (11:09)
[2019-11-19] MEDS ORDERED: LIDOCAINE 1% INJ 10MG/ML (20 ML MDV) ONE (11:09)
[2019-11-19] MEDS ORDERED: MIDAZOLAM 2 MG/2 ML VIAL ONE (11:09)
--- NOTE | 2019-11-19 11:44 | P.PCN ---
Date of Procedure: 11/19/19 Description of Procedure: BRIEF HISTORY: Patient is a 69-year-old male presenting for outpatient colonoscopy for screening for malignant neoplasm in the colon. Last colonoscopy approximately 5 years ago. He does report a history of colon cancer in his father. Denies any change in bowel habits, blood per rectum or abdominal pain. PROCEDURE PERFORMED: Colonoscopy with polypectomy. PREOPERATIVE DIAGNOSIS: Screening for malignant neoplasm of the colon, last colonoscopy 5 years ago, patient reports a family history of colon cancer in his mother. ESTIMATED BLOOD LOSS: Minimal. IV sedation per Anesthesia. PROCEDURE: After informed consent was obtained, the patient, was brought into the endoscopy unit. IV sedation was administered by Anesthesia under continuous monitoring. Digital rectal examination was normal. Initially the Olympus CF-190 flexible video colonoscope was then inserted in the rectum, gradually advanced into the cecum without any difficulty. Careful examination was performed as the scope was gradually being withdrawn. Ileocecal valve and the appendiceal orifice were visualized and appeared normal. Prep was excellent. Mucosa of the cecum, ascending colon, transverse colon, descending colon, sigmoid colon, and rectum appeared normal. Multiple small and large diverticula noted in the left colon. 9 mm sessile descending colon polyp removed with cold snare polypectomy. Retroflexion was performed in the rectum and no lesions were seen. The patient tolerated the procedure well. IMPRESSION: Descending colon polyp removed with cold snare. Moderate left colonic diverticulosis. RECOMMENDATIONS: Findings of this examination were discussed with the patient in his . Okay to resume diet. Okay to resume medications. Await pathology from polypectomy. Recommend repeat colonoscopy in 5 years given family history of colon cancer.
[2019-11-19 12:07] VITALS: BP 109/69; PULSE 49; RESP 20
== END 2019-11-19 12:24 | disposition home or self-care (01) ==
LOC: ORWHC2ENDO 09:23
PROVIDERS: ATTEND Internal Medicine
DX: Z12.11 Encounter for screening for malignant neoplasm of colon (principal); K63.5 Polyp of colon; K57.30 Diverticulosis of large intestine without perforation or abscess without bleeding; Z80.0 Family history of malignant neoplasm of digestive organs; I25.119 Atherosclerotic heart disease of native coronary artery with unspecified angina pectoris; I10 Essential (primary) hypertension; E78.5 Hyperlipidemia, unspecified; J45.909 Unspecified asthma, uncomplicated; G47.33 Obstructive sleep apnea (adult) (pediatric); E03.9 Hypothyroidism, unspecified; K21.9 Gastro-esophageal reflux disease without esophagitis; Z87.891 Personal history of nicotine dependence; Z88.8 Allergy status to other drugs, medicaments and biological substances; Z79.899 Other long term (current) drug therapy; Z79.1 Long term (current) use of non-steroidal anti-inflammatories (NSAID); Z79.890 Hormone replacement therapy; Z79.82 Long term (current) use of aspirin; Z95.5 Presence of coronary angioplasty implant and graft; Z90.49 Acquired absence of other specified parts of digestive tract; Z90.89 Acquired absence of other organs; Z98.890 Other specified postprocedural states; Z98.52 Vasectomy status; Z86.69 Personal history of other diseases of the nervous system and sense organs; Z87.2 Personal history of diseases of the skin and subcutaneous tissue; Z99.89 Dependence on other enabling machines and devices
CPT/HCPCS: 88305; 45385; J2250; J2001; J3010; J2704

== ENCOUNTER 2022-02-13 10:28 | Emergency (ER) | payer MEDICARE ==
[2022-02-13 10:33] VITALS: TEMP 98
--- NOTE | 2022-02-13 11:12 | ED ---
Abdominal Pain HPI - General Chief Complaint: Abdominal Pain Stated Complaint: abd pain Time Seen by Provider: 02/13/22 10:41 Source: patient, RN notes reviewed Mode of arrival: ambulatory Limitations: no limitations - History of Present Illness Initial Comments: 18-year-old male with a history of heart disease and recent diagnosis of atrial fibrillation who presents with complaints of the onset last evening of sharp right upper quadrant pain. He states it was about 5/10 severity has some nausea lasting about 5 minutes was a sharp stabbing pain. It went away finally went to bed and states he woke up this morning is more discomfort in the same area no nausea vomiting states the pain is minimal at this time more achy in nature to 3/10 severity. No cough no shortness of breath at this time fevers chills diarrhea no complaints or modifying factors other than to state that recently his exercise tolerance is gone down somewhat after 20 minutes on a bicycle he will get somewhat short of breath when he is to be able to 30 minutes. He has seen his associate director finance for this. He does have a plan to see his family doctor in 2 days. MD Complaint: abdominal pain - Related Data Home Medications Medication Instructions Recorded Confirmed Losartan/Hydrochlorothiazide 1 tab PO DAILY 06/03/16 11/15/19 [Hyzaar 100-25 Tablet] Omeprazole [PriLOSEC] 40 mg PO DAILY 01/12/17 11/15/19 atenoloL [Tenormin] 12.5 mg PO HS 01/12/17 11/15/19 Aspirin 81 mg PO DAILY 05/15/17 11/15/19 Atorvastatin [Lipitor] 20 mg PO HS 11/15/19 11/15/19 Celecoxib [CeleBREX] 200 mg PO BID 11/15/19 11/15/19 Furosemide [Lasix] 20 mg PO DAILY 11/15/19 11/15/19 Levothyroxine Sodium [Synthroid] 50 mcg PO DAILY 11/15/19 11/15/19 Montelukast [Singulair] 10 mg PO HS 11/15/19 11/15/19 Ubidecarenone [Co Q-10] 100 mg PO DAILY 11/15/19 11/15/19 Vitamin D, Fish Oil, [place] 3 1 tab PO DAILY 11/15/19 Previous Rx's Medication Instructions Recorded PARoxetine [Paxil] 20 mg PO DAILY #30 tab 05/17/17 amLODIPine [Norvasc] 10 mg PO HS #30 tablet 05/17/17 Amoxicillin/Potassium Clav 1 tab PO BID 1 Days #20 tab 02/13/22 [Augmentin 875-125 Tablet] Ibuprofen 800 mg PO Q6HR PRN #20 tablet 02/13/22 Allergies Allergy/AdvReac Type Severity Reaction Status Date / Time pseudoephedrine sulfate AdvReac Rapid Verified 02/13/22 10:33 [From Claritin-D] Heart Rate Review of Systems ROS Statement: Those systems with pertinent positive or pertinent negative responses have been documented in the HPI. ROS Other: All systems not noted in ROS Statement are negative. Past Medical History Past Medical History: Asthma, Coronary Artery Disease (CAD), Chest Pain / Angina, GERD/Reflux, Hyperlipidemia, Hypertension, Myocardial Infarction (CO), Osteoarthritis (OA), Pneumonia, Sleep Apnea/CPAP/BIPAP, Thyroid Disorder Additional Past Medical History / Comment(s): 01/12/17 inferior wall CO/hypokalemia, arthritis knees, back and hands, back pain, SARAH with CPAP use, decreased immune system, several pneumonias, bronchitis, sinus problems, hayfever, hypothyroid, nephrolithiasis. Last Myocardial Infarction Date:: 01/12/17 History of Any Multi-Drug Resistant Organisms: None Reported Past Surgical History: Adenoidectomy, Heart Catheterization, Heart Catheterization With Stent, Tonsillectomy Additional Past Surgical History / Comment(s): 01/12/17 PCI with stent to RCA, bilateral carpal tunnel releases; pil cyst on tailbone X2, colonoscopies, circumcism, vasectomy., trigger Thumb Luis E, Trigger small finger right hand. Past Anesthesia/Blood Transfusion Reactions: No Reported Reaction Additional Past Anesthesia/Blood Transfusion Reaction / Comment(s): difficulty waking up. mother had to be resusitated due to reaction to iodine reaction with heart cath. Date of Last Stent Placement:: 2016 Past Psychological History: Anxiety, Depression Smoking Status: Never smoker Past Alcohol Use History: Rare Past Drug Use History: None Reported - Past Family History Father Family Medical History: CVA/TIA, Eye Disorder, Vascular Disorder Additional Family Medical History / Comment(s): CVA, glaucoma, severe circulation problems, macular degeneration, dry eyes. Mother Family Medical History: Cancer, Eye Disorder Additional Family Medical History / Comment(s): Colon cancer, macular degeneration. Colon cancer runs on pt's mother's side of family. General Exam - General Exam Comments Initial Comments: This is a well-developed well-nourished awake alert oriented 3 male Limitations: no limitations General appearance: alert, in no apparent distress Head exam: Present: atraumatic, normocephalic, normal inspection Eye exam: Present: normal appearance, PERRL, EOMI. Absent: scleral icterus, conjunctival injection, periorbital swelling ENT exam: Present: normal exam, mucous membranes moist Neck exam: Present: normal inspection, full ROM, other (No stridor JVD or bruits). Absent: tenderness, meningismus, lymphadenopathy Respiratory exam: Present: normal lung sounds bilaterally. Absent: respiratory distress, wheezes, rales, rhonchi, stridor Cardiovascular Exam: Present: normal rhythm, bradycardia, normal heart sounds. Absent: systolic murmur, diastolic murmur, rubs, gallop, clicks GI/Abdominal exam: Present: soft, normal bowel sounds. Absent: distended, tenderness, guarding, rebound, rigid, bruit, pulsatile mass Extremities exam: Present: normal inspection, full ROM, normal capillary refill. Absent: tenderness, pedal edema, joint swelling, calf tenderness Back exam: Present: normal inspection Neurological exam: Present: alert, oriented X3, CN II-XII intact Psychiatric exam: Present: normal affect, normal mood Skin exam: Present: warm, dry, intact, normal color. Absent: rash Course Vital Signs 02/13/22 02/13/22 02/13/22 10:31 13:07 14:27 Temperature 98 F Pulse Rate 48 L 47 L 46 L Respiratory 16 14 18 Rate Blood Pressure 128/71 130/96 127/96 O2 Sat by Pulse 98 97 98 Oximetry Medical Decision Making - Medical Decision Making I did discuss findings with the patient's was present in the current presentation appears be consistent with mild diverticulitis patient is feeling much improved after medication given. Patient be placed on oral antibiotics after an IV dose anti-inflammatories he is to keep his follow-up with his doctor this week and return if any problems we did discuss return parameters for chest pain shortness of breath fevers chills etc. - Lab Data Result diagrams: 02/13/22 11:41 02/13/22 11:41 Lab Results 02/13/22 02/13/22 02/13/22 Range/Units 11:41 11:41 11:41 WBC 9.0 (3.8-10.6) k/uL RBC 5.33 (4.30-5.90) m/uL Hgb 16.3 (13.0-17.5) gm/dL Hct 46.5 (39.0-53.0) % MCV 87.4 (80.0-100.0) fL MCH 30.7 (25.0-35.0) pg MCHC 35.1 (31.0-37.0) g/dL RDW 14.0 (11.5-15.5) % Plt Count 155 (150-450) k/uL MPV 9.1 Neutrophils % 73 % Lymphocytes % 16 % Monocytes % 5 % Eosinophils % 4 % Basophils % 0 % Neutrophils # 6.6 (1.3-7.7) k/uL Lymphocytes # 1.5 (1.0-4.8) k/uL Monocytes # 0.4 (0-1.0) k/uL Eosinophils # 0.3 (0-0.7) k/uL Basophils # 0.0 (0-0.2) k/uL Sodium 135 L (137-145) mmol/L Potassium 3.6 (3.5-5.1) mmol/L Chloride 99 (98-107) mmol/L Carbon Dioxide 29 (22-30) mmol/L Anion Gap 7 mmol/L BUN 24 H (9-20) mg/dL Creatinine 1.41 H (0.66-1.25) mg/dL Est GFR (CKD-EPI)AfAm 59 (>60 ml/min/1.73 sqM) Est GFR (CKD-EPI)NonAf 51 (>60 ml/min/1.73 sqM) Glucose 117 H (74-99) mg/dL Calcium 9.1 (8.4-10.2) mg/dL Magnesium 2.0 (1.6-2.3) mg/dL Total Bilirubin 1.4 H (0.2-1.3) mg/dL AST 51 (17-59) U/L ALT 30 (4-49) U/L Alkaline Phosphatase 62 (38-126) U/L Troponin I (0.000-0.034) ng/mL Total Protein 6.6 (6.3-8.2) g/dL Albumin 4.3 (3.5-5.0) g/dL Amylase 49 (30-110) U/L Lipase 51 (23-300) U/L Urine Color Yellow Urine Appearance Clear (Clear) Urine pH 7.0 (5.0-8.0) Ur Specific Outlook 1.013 (1.001-1.035) Urine Protein Negative (Negative) Urine Glucose (UA) Negative (Negative) Urine Ketones Negative (Negative) Urine Blood Negative (Negative) Urine Nitrite Negative (Negative) Urine Bilirubin Negative (Negative) Urine Urobilinogen 3.0 (<2.0) mg/dL Ur Leukocyte Esterase Negative (Negative) 02/13/22 Range/Units 11:41 WBC (3.8-10.6) k/uL RBC (4.30-5.90) m/uL Hgb (13.0-17.5) gm/dL Hct (39.0-53.0) % MCV (80.0-100.0) fL MCH (25.0-35.0) pg MCHC (31.0-37.0) g/dL RDW (11.5-15.5) % Plt Count (150-450) k/uL MPV Neutrophils % % Lymphocytes % % Monocytes % % Eosinophils % % Basophils % % Neutrophils # (1.3-7.7) k/uL Lymphocytes # (1.0-4.8) k/uL Monocytes # (0-1.0) k/uL Eosinophils # (0-0.7) k/uL Basophils # (0-0.2) k/uL Sodium (137-145) mmol/L Potassium (3.5-5.1) mmol/L Chloride (98-107) mmol/L Carbon Dioxide (22-30) mmol/L Anion Gap mmol/L BUN (9-20) mg/dL Creatinine (0.66-1.25) mg/dL Est GFR (CKD-EPI)AfAm (>60 ml/min/1.73 sqM) Est GFR (CKD-EPI)NonAf (>60 ml/min/1.73 sqM) Glucose (74-99) mg/dL Calcium (8.4-10.2) mg/dL Magnesium (1.6-2.3) mg/dL Total Bilirubin (0.2-1.3) mg/dL AST (17-59) U/L ALT (4-49) U/L Alkaline Phosphatase (38-126) U/L Troponin I 0.032 (0.000-0.034) ng/mL Total Protein (6.3-8.2) g/dL Albumin (3.5-5.0) g/dL Amylase (30-110) U/L Lipase (23-300) U/L Urine Color Urine Appearance (Clear) Urine pH (5.0-8.0) Ur Specific Outlook (1.001-1.035) Urine Protein (Negative) Urine Glucose (UA) (Negative) Urine Ketones (Negative) Urine Blood (Negative) Urine Nitrite (Negative) Urine Bilirubin (Negative) Urine Urobilinogen (<2.0) mg/dL Ur Leukocyte Esterase (Negative) - Radiology Data Radiology results: report reviewed (Imaging reviewed evidence of mild diverticular disease with some fast stranding renal study is negative), image reviewed Disposition Clinical Impression: Abdominal pain, Diverticulitis Disposition: HOME SELF-CARE Condition: Good Instructions (If sedation given, give patient instructions): Abdominal Pain (ED), Diverticulitis (DC) Prescriptions: Amoxicillin/Potassium Clav [Augmentin 875-125 Tablet] 1 tab PO BID 1 Days #20 tab Ibuprofen 800 mg PO Q6HR PRN #20 tablet PRN Reason: Pain Is patient prescribed a controlled substance at d/c from ED?: No Referrals: Brian Bradley MD [Primary Care Provider] - 1-2 days Decision Date: 02/13/22 Decision Time: 14:31
[2022-02-13 11:50] LABS: Basophils % (A) 0 %; Eosinophils # (A) 0.3 k/uL (0-0.7); Eosinophils % (A) 4 %; HCT 46.5 % (39.0-53.0); HGB 16.3 gm/dL (13.0-17.5); Lymphocytes # (A) 1.5 k/uL (1.0-4.8); Lymphocytes % (A) 16 %; MCH 30.7 pg (25.0-35.0); MCHC 35.1 g/dL (31.0-37.0); MCV 87.4 fL (80.0-100.0); Mean Platelet Volume 9.1; Monocytes # (A) 0.4 k/uL (0-1.0); Monocytes % (A) 5 %; Neutrophils # (A) 6.6 k/uL (1.3-7.7); Neutrophils % (A) 73 %; Platelet Count 155 k/uL (150-450); RBC 5.33 m/uL (4.30-5.90)
[2022-02-13 11:58] LABS: Appearance,Urine Clear (Clear); Bilirubin,Urine Negative (Negative); Blood,Urine Negative (Negative); Color,Urine Yellow; Glucose,Urine (UA) Negative (Negative); Ketones,Urine Negative (Negative); Leukocyte Esterase,Urine Negative (Negative); Nitrite,Urine Negative (Negative); Protein,Urine Negative (Negative); Specific Gravity,Urine 1.013 (1.001-1.035)
--- NOTE | 2022-02-13 11:58 | XR ---
EXAMINATION TYPE: XR chest 2V DATE OF EXAM: 02/13/2022 COMPARISON: Chest x-ray May 15, 2017 HISTORY: Right lower thoracic pain TECHNIQUE: Frontal and lateral views of the chest are obtained. FINDINGS: There is no suspicious focal air space opacity, pleural effusion, or pneumothorax seen. T he cardiac silhouette size remains within normal limits. The osseous structures are intact. IMPRESSION: No acute process.
[2022-02-13 11:59] LABS: Albumin 4.3 g/dL (3.5-5.0); Calcium 9.1 mg/dL (8.4-10.2); Potassium 3.6 mmol/L (3.5-5.1); Total Bilirubin 1.4 mg/dL (0.2-1.3); Total Protein 6.6 g/dL (6.3-8.2)
--- NOTE | 2022-02-13 12:02 | XR ---
EXAMINATION TYPE: XR KUB DATE OF EXAM: 02/13/2022 11:52 AM CLINICAL HISTORY: Right upper quadrant pain. TECHNIQUE: Two Upright KUB images of the abdomen are obtained. COMPARISON: None. FINDINGS: Scattered gas is seen in non-distended small bowel loops. Gas and fecal material is seen in non-distended colon. There is no visceromegaly, pneumoperitoneum, or abnormal calcification apprecia jag. Slight scoliotic curvature of the spine. Lung bases are clear. IMPRESSION: Overall nonobstructive bowel gas pattern.
[2022-02-13] MEDS ORDERED: KETOROLAC 15 MG/ML 1 ML VIAL IVP STA (13:06)
[2022-02-13] MEDS ORDERED: SODIUM CHLORIDE 0.9% 500 ML 500 ML IV STA (13:06)
--- NOTE | 2022-02-13 13:41 | CT ---
EXAMINATION TYPE: CT abdomen pelvis wo con DATE OF EXAM: 02/13/2022 HISTORY: Rt side abd pain. Right lower quadrant pain. CT DLP: 979.9 mGycm. Automated Exposure Control for Dose Reduction was Utilized. TECHNIQUE: CT scan of the abdomen and pelvis is performed without oral or IV contrast. COMPARISON: NONE FINDINGS: Within the limitations of a non-contrast study, the following observations are made. LUNG BASES: There is mild bibasilar linear scarring and/or atelectasis. LIVER/GB: No significant abnormality is appreciated. PANCREAS: No significant abnormality is seen. SPLEEN: No significant abnormality is seen. ADRENALS: No significant abnormality is seen. KIDNEYS: No renal stones or hydronephrosis is present bilaterally. Bladder poorly distended with mild concentric wall thickening up to 9 mm. BOWEL: Suboptimal evaluation without enteric contrast. No suspicious small or large bowel dilatation. Normal appearing appendix from the cecum in the right lower quadrant. No suspicious small or large b owel dilatation. Some scattered colonic diverticula greatest in the sigmoid colon with perhaps touch fat stranding in the right lower quadrant mesentery axial image 84 near the slightly redundant sigmoi d colon. GENITAL ORGANS: Prostate gland upper limits of normal in size to mildly enlarged with central calcifi cations. LYMPH NODES: No greater than 1cm abdominal or pelvic lymph nodes are appreciated. OSSEOUS STRUCTURES: Mild to moderate disc space narrowing L5-S1 level. OTHER: Small to tiny fat-containing left greater than right bilateral inguinal hernias. IMPRESSION: No CT evidence for acute appendicitis. Distal colonic diverticulosis with perhaps minimal or early uncomplicated acute diverticulitis in the slightly redundant sigmoid colon extending to rig ht of midline otherwise no acute findings present to account for patient's symptoms.
[2022-02-13] MEDS ORDERED: cefTRIAXone IN SWFI 1,000 MG/10 ML SYRINGE IVP STA (14:19)
[2022-02-13 14:28] VITALS: BP 127/96; PULSE 46; RESP 18
== END 2022-02-13 14:39 | disposition home or self-care (01) ==
LOC: EC 10:28
DX: K57.92 Diverticulitis of intestine, part unspecified, without perforation or abscess without bleeding (principal); J45.909 Unspecified asthma, uncomplicated; Z79.82 Long term (current) use of aspirin; Z79.83 Long term (current) use of bisphosphonates; E78.5 Hyperlipidemia, unspecified; I10 Essential (primary) hypertension; I25.2 Old myocardial infarction
CPT/HCPCS: 36415; 80053; 82150; 83690; 83735; 84484; 85025; 81003; 71046; 74018; 74176; 99284; 96374; 96375; 96361; J0696; J1885

== ENCOUNTER → 2022-09-03 | Outpatient (CLI) | payer MEDICARE ==
[2022-09-03 16:19] LABS: Basophils # (A) 0.05 X 10*3/uL (0.00-0.10); Basophils % (A) 0.6 %; Eosinophils # (A) 0.19 X 10*3/uL (0.04-0.35); Eosinophils % (A) 2.3 %; HCT 49.6 % (39.6-50.0); HGB 16.8 g/dL (13.0-17.0); Immature Grans, Automated 0.2 %; Lymphocytes # (A) 1.61 X 10*3/uL (0.90-5.00); Lymphocytes % (A) 19.1 %; MCH 29.8 pg (27.0-32.0); MCHC 33.9 g/dL (32.0-37.0); MCV 87.9 fL (80.0-97.0); Mean Platelet Volume 12.2 fL (9.5-12.2); Monocytes % (A) 5.9 %; NRBC Per 100 WBC 0 /100 WBCS (0.0-0.0); Neutrophils # (A) 6.04 X 10*3/uL (1.80-7.70); Neutrophils % (A) 71.9 %; Platelet Count 191 X 10*3/uL (140-440); RBC 5.64 X 10*6/uL (4.40-5.60); RDW 13.2 % (11.5-14.5); WBC 8.41 X 10*3/uL (4.50-10.00)
[2022-09-03 17:44] LABS: ALT 31 U/L (10-49); AST 34 U/L (14-35); African American GFR (CKD) 63.5 (60.0-200.0); Albumin 4.4 g/dL (3.8-4.9); Albumin/Globulin Ratio 2.34 (1.60-3.17); Alkaline Phosphatase 83 U/L (41-126); BUN/Creat Ratio 8.78 Ratio (12.00-20.00); Blood Urea Nitrogen 11.5 mg/dL (9.0-27.0); Calcium 9.9 mg/dL (8.7-10.3); Carbon Dioxide 29.3 mmol/L (20.0-27.5); Chloride 99 mmol/L (96-109); Chol/HDL Ratio 2.95 Ratio; Creatine Kinase 136 U/L (35-257); Globulin 1.9 g/dL (1.6-3.3); Glucose 94 mg/dL (70-110); LDL Cholesterol,Calculated 56.1 mg/dL (0.0-131.0); Non-African American GFR(CKD) 54.8 (60.0-200.0); Potassium 4.7 mmol/L (3.5-5.5); Sodium 139 mmol/L (135-145); Total Protein 6.3 g/dL (6.2-8.2); VLDL Calculation 15.98 mg/dL (5.00-40.00)
== END | disposition home or self-care (01) ==
LOC: LABMAIN 12:49
PROVIDERS: ATTEND Internal Medicine Interventional Cardiology
DX: E03.9 Hypothyroidism, unspecified (principal); E78.5 Hyperlipidemia, unspecified
CPT/HCPCS: 80053; 80061; 82550; 83036; 84439; 84443; 85025

== ENCOUNTER 2023-01-06 11:19 | Emergency (ER) | payer MEDICARE ==
[2023-01-06] MEDS ORDERED: SODIUM CHLORIDE 0.9% 500 ML 500 ML IV STA (11:49)
--- NOTE | 2023-01-06 11:54 | ED ---
General Adult HPI - General Chief complaint: Arrhythmia/Palpitations Stated complaint: AFIB Time Seen by Provider: 01/06/23 11:36 Source: patient, RN notes reviewed, old records reviewed Mode of arrival: wheelchair Limitations: no limitations - History of Present Illness Initial comments: This is a 72-year-old male presents emergency department stating that he has a history of atrial fibrillation. Patient states over the last 3 days he's noticed his heart rate is gone up into the low 100s maximum being 113. Patient states he has felt just a little short of breath with some exertion but aside from that he's had no symptoms. Patient denies any chest pain. Patient denies feeling any palpitations. Patient states the reason he noted his heart rate going fast because his watch is indicated that. Patient denies lightheadedness or dizziness. Patient denies any fever chills or cough. Patient denies any abdominal pain patient denies any nausea vomiting diarrhea. There is a swelling to the legs or calf tenderness. Patient is on a blood thinner. - Related Data Home Medications Medication Instructions Recorded Confirmed Losartan/Hydrochlorothiazide 1 tab PO DAILY 06/03/16 01/06/23 [Hyzaar 100-25 Tablet] Omeprazole [PriLOSEC] 40 mg PO DAILY 01/12/17 01/06/23 atenoloL [Tenormin] 12.5 mg PO HS 01/12/17 01/06/23 Atorvastatin [Lipitor] 20 mg PO HS 11/15/19 01/06/23 Celecoxib [CeleBREX] 200 mg PO BID 11/15/19 01/06/23 Levothyroxine Sodium [Synthroid] 50 mcg PO DAILY 11/15/19 01/06/23 Montelukast [Singulair] 10 mg PO HS 11/15/19 01/06/23 Ubidecarenone [Co Q-10] 100 mg PO DAILY 11/15/19 01/06/23 Apixaban [Eliquis] 2.5 mg PO BID 01/06/23 01/06/23 Cholecalciferol [Vitamin D3 (125 125 mcg PO DAILY 01/06/23 01/06/23 Mcg = 5000 Iu)] amLODIPine [Norvasc] 10 mg PO DAILY 01/06/23 01/06/23 Previous Rx's Medication Instructions Recorded PARoxetine [Paxil] 20 mg PO DAILY #30 tab 05/17/17 Allergies Allergy/AdvReac Type Severity Reaction Status Date / Time pseudoephedrine sulfate AdvReac Rapid Verified 01/06/23 13:12 [From Claritin-D] Heart Rate Review of Systems ROS Statement: Those systems with pertinent positive or pertinent negative responses have been documented in the HPI. ROS Other: All systems not noted in ROS Statement are negative. Past Medical History Past Medical History: Atrial Fibrillation, Asthma, Coronary Artery Disease (CAD), Chest Pain / Angina, GERD/Reflux, Hyperlipidemia, Hypertension, Myocardial Infarction (NV), Osteoarthritis (OA), Pneumonia, Sleep Apnea/CPAP/BIP AP, Thyroid Disorder Additional Past Medical History / Comment(s): 01/12/17 inferior wall NV/hypokalemia, arthritis knees, back and hands, back pain, SARAH with CPAP use, decreased immune system, several pneumonias, bronchitis, sinus problems, hayfever, hypothyroid, nephrolithiasis. Last Myocardial Infarction Date:: 01/12/17 History of Any Multi-Drug Resistant Organisms: None Reported Past Surgical History: Adenoidectomy, Heart Catheterization, Heart Catheterization With Stent, Tonsillectomy Additional Past Surgical History / Comment(s): 01/12/17 PCI with stent to RCA, bilateral carpal tunnel releases; pil cyst on tailbone X2, colonoscopies, circumcism, vasectomy., trigger Thumb Luis E, Trigger small finger right hand. Past Anesthesia/Blood Transfusion Reactions: No Reported Reaction Additional Past Anesthesia/Blood Transfusion Reaction / Comment(s): difficulty waking up. mother had to be resusitated due to reaction to iodine reaction with heart cath. Date of Last Stent Placement:: 2016 Past Psychological History: Anxiety, Depression Smoking Status: Never smoker Past Alcohol Use History: Rare Past Drug Use History: None Reported - Past Family History Father Family Medical History: CVA/TIA, Eye Disorder, Vascular Disorder Additional Family Medical History / Comment(s): CVA, glaucoma, severe circulation problems, macular degeneration, dry eyes. Mother Family Medical History: Cancer, Eye Disorder Additional Family Medical History / Comment(s): Colon cancer, macular degeneration. Colon cancer runs on pt's mother's side of family. General Exam - General Exam Comments Initial Comments: GENERAL: Patient is well-developed and well-nourished. Patient is nontoxic and well-hydrated and is in no acute distress. ENT: Neck is soft and supple. No significant lymphadenopathy is noted. Oropharynx is clear. Moist mucous membranes. Neck has full range of motion without eliciting any pain. EYES: The sclera were anicteric and conjunctiva were pink and moist. Extraocular mov ements were intact and pupils were equal round and reactive to light. Eyelids were unremarkable. PULMONARY: Unlabored respirations. Good breath sounds bilaterally. No audible rales rhonchi or wheezing was noted. CARDIOVASCULAR: Irregularly irregular rate ABDOMEN: Soft and nontender with normal bowel sounds. SKIN: Skin is clear with no lesions or rashes and otherwise unremarkable. NEUROLOGIC: Patient is alert and oriented x3. Cranial nerves II through XII are grossly intact. Motor and sensory are also intact. Normal speech, volume and content. Symmetrical smile. MUSCULOSKELETAL: Normal extremities with adequate strength and full range of motion. No lower extremity swelling or edema. No calf tenderness. LYMPHATICS: No significant lymphadenopathy is noted PSYCHIATRIC: Normal psychiatric evaluation. Limitations: no limitations Course Vital Signs 01/06/23 01/06/23 01/06/23 11:21 11:44 12:11 Temperature 97.7 F Pulse Rate 76 72 83 Respiratory 20 18 18 Rate Blood Pressure 109/72 108/83 111/78 O2 Sat by Pulse 99 99 98 Oximetry 01/06/23 13:29 Temperature Pulse Rate 65 Respiratory 19 Rate Blood Pressure 100/67 O2 Sat by Pulse 96 Oximetry Medical Decision Making - Medical Decision Making EKG was interpreted by myself. EKG shows atrial fibrillation at 74 bpm cardiac is 132 QT interval 394 QTC is 421. Patient's EKG shows no ST segment elevation or depression. Was pt. sent in by a medical professional or institution (, PA, HEALTH INFORMATION TECHNOLOGIST, urgent care, hospital, or fpc...) When possible be specific @ -No Did you speak to anyone other than the patient for history (EMS, parent, family, police, friend...)? What history was obtained from this source @ -EMS gave all the history. Did you review nursing and triage notes (agree or disagree)? Why? @ -I reviewed and agree with nursing and triage notes Were old charts reviewed (outside hosp., previous admission, EMS record, old EKG, old radiological studies, urgent care reports/EKG's, fpc records)? Report findings @ -I looked at prior charts in prior lab work Differential Diagnosis (chest pain, altered mental status, abdominal pain women, abdominal pain men, vaginal bleeding, weakness, fever, dyspnea, syncope, headache, dizziness, GI bleed, back pain, seizure, CVA, palpatations, mental health, musculoskeletal)? @ -Differential Fever: Pneumonia, viral URI, endocarditis, myocarditis, pericarditis, otitis, sinusitis, peritonsillar Abscess, retropharyngeal Abscess, epiglottitis, peritonitis, appendicitis, Vivi cystitis, diverticulitis, hepatitis, colitis, UTI, PID, TOA, pyelonephritis, prostatitis, epididymitis, meningitis, encep halitis, pulmonary embolism, CVA, thyroid storm, pancreatitis, adrenal crisis, cavernous sinus thrombosis, this is not meant to be an all-inclusive list. EKG interpreted by me (3pts min.). @ -As above X-rays interpreted by me (1pt min.). @ -Chest x-ray was interpreted by myself I no acute abnormality CT interpreted by me (1pt min.). @ -None done U/S interpreted by me (1pt. min.). @ -None done What testing was considered but not performed or refused? (CT, X-rays, U/S, labs)? Why? @ -None What meds were considered but not given or refused? Why? @ -None Did you discuss the management of the patient with other professionals ([place] i.e. , PA, HEALTH INFORMATION TECHNOLOGIST, lab, RT, psych nurse, social service director, tip printer, teacher, geographic area intelligence officer, bilingual case manager)? Give summary @ -No Was smoking cessation discussed for >3mins.? @ -No Was critical care preformed (if so, how long)? @ -No Were there social determinants of health that impacted care today? How? (Homelessness, low income, unemployed, alcoholism, drug addiction, transportati on, low edu. Level, literacy, decrease access to med. care, penitentiary, rehab)? @ -No Was there de-escalation of care discussed even if they declined (Discuss DNR or withdrawal of care, Hospice)? DNR status @ -No What co-morbidities impacted this encounter? (DM, HTN, Smoking, COPD, CAD, Cancer, CVA, ARF, Chemo, Hep., AIDS, mental health diagnosis, sleep apnea, morbid obesity)? @ -None Was patient admitted / discharged? Hospital course, mention meds given and route, prescriptions, significant lab abnormalities, going to OR and other pertinent info. @ -Patient remained asymptomatic throughout his ED course patient's heart rate never got above 100. Patient has appointment with cardiology and he will follow-up with them shortly Undiagnosed new problem with uncertain prognosis? @ -No Drug Therapy requiring intensive monitoring for toxicity (Heparin, Nitro, Insulin, Cardizem)? @ -No Were any procedures done? @ -No Diagnosis/symptom? @ -History of A. fib Acute, or Chronic, or Acute on Chronic? @ -Chronic Uncomplicated (without systemic symptoms) or Complicated (systemic symptoms)? @ -Uncomplicated Side effects of treatment? @ -No Exacerbation, Progression, or Severe Exacerbation? @ -No Poses a threat to life or bodily function? How? (Chest pain, USA, NV, pneumonia, PE, COPD, DKA, ARF, appy, cholecystitis, CVA, Diverticulitis, Homicidal, Suicidal, threat to staff... and all critical care pts) @ -No - Lab Data Result diagrams: 01/06/23 12:06 01/06/23 12:06 Lab Results 01/06/23 01/06/23 01/06/23 Range/Units 12:06 12:06 12:06 WBC 5.6 (3.8-10.6) k/uL RBC 5.47 (4.30-5.90) m/uL Hgb 16.6 (13.0-17.5) gm/dL Hct 46.2 (39.0-53.0) % MCV 84.4 (80.0-100.0) fL MCH 30.3 (25.0-35.0) pg MCHC 35.9 (31.0-37.0) g/dL RDW 13.9 (11.5-15.5) % Plt Count 173 (150-450) k/uL MPV 8.9 Neutrophils % 64 % Lymphocytes % 21 % Monocytes % 6 % Eosinophils % 6 % Basophils % 1 % Neutrophils # 3.6 (1.3-7.7) k/uL Lymphocytes # 1.2 (1.0-4.8) k/uL Monocytes # 0.4 (0-1.0) k/uL Eosinophils # 0.3 (0-0.7) k/uL Basophils # 0.0 (0-0.2) k/uL Hyperchromasia Slight PT 10.8 (9.0-12.0) sec INR 1.0 (<1.2) APTT 25.9 (22.0-30.0) sec Sodium 133 L (137-145) mmol/L Potassium 3.9 (3.5-5.1) mmol/L Chloride 101 (98-107) mmol/L Carbon Dioxide 26 (22-30) mmol/L Anion Gap 6 mmol/L BUN 17 (9-20) mg/dL Creatinine 1.07 (0.66-1.25) mg/dL Est GFR (CKD-EPI)AfAm 82 (>60 ml/min/1.73 sqM) Est GFR (CKD-EPI)NonAf 71 (>60 ml/min/1.73 sqM) Glucose 92 (74-99) mg/dL Calcium 9.3 (8.4-10.2) mg/dL Magnesium 1.9 (1.6-2.3) mg/dL Total Bilirubin 1.1 (0.2-1.3) mg/dL AST 37 (17-59) U/L ALT 29 (4-49) U/L Alkaline Phosphatase 69 (38-126) U/L Troponin I (0.000-0.034) ng/mL Total Protein 6.2 L (6.3-8.2) g/dL Albumin 3.9 (3.5-5.0) g/dL TSH 2.150 (0.465-4.680) mIU/L 01/06/23 Range/Units 12:06 WBC (3.8-10.6) k/uL RBC (4.30-5.90) m/uL Hgb (13.0-17.5) gm/dL Hct (39.0-53.0) % MCV (80.0-100.0) fL MCH (25.0-35.0) pg MCHC (31.0-37.0) g/dL RDW (11.5-15.5) % Plt Count (150-450) k/uL MPV Neutrophils % % Lymphocytes % % Monocytes % % Eosinophils % % Basophils % % Neutrophils # (1.3-7.7) k/uL Lymphocytes # (1.0-4.8) k/uL Monocytes # (0-1.0) k/uL Eosinophils # (0-0.7) k/uL Basophils # (0-0.2) k/uL Hyperchromasia PT (9.0-12.0) sec INR (<1.2) APTT (22.0-30.0) sec Sodium (137-145) mmol/L Potassium (3.5-5.1) mmol/L Chloride (98-107) mmol/L Carbon Dioxide (22-30) mmol/L Anion Gap mmol/L BUN (9-20) mg/dL Creatinine (0.66-1.25) mg/dL Est GFR (CKD-EPI)AfAm (>60 ml/min/1.73 sqM) Est GFR (CKD-EPI)NonAf (>60 ml/min/1.73 sqM) Glucose (74-99) mg/dL Calcium (8.4-10.2) mg/dL Magnesium (1.6-2.3) mg/dL Total Bilirubin (0.2-1.3) mg/dL AST (17-59) U/L ALT (4-49) U/L Alkaline Phosphatase (38-126) U/L Troponin I <0.012 (0.000-0.034) ng/mL Total Protein (6.3-8.2) g/dL Albumin (3.5-5.0) g/dL TSH (0.465-4.680) mIU/L Disposition Clinical Impression: Atrial fibrillation Disposition: HOME SELF-CARE Condition: Good Instructions (If sedation given, give patient instructions): A-fib (Atrial Fibrillation) (ED) Additional Instructions: Patient is to follow up with cardiology to get an event monitor Is patient prescribed a controlled substance at d/c from ED?: No Referrals: Brian Bradley MD [Primary Care Provider] - 1-2 days Time of Disposition: 14:37
[2023-01-06 12:24] LABS: Partial Thromboplastin Time 25.9 sec (22.0-30.0); Prothrombin Time 10.8 sec (9.0-12.0)
--- NOTE | 2023-01-06 12:26 | XR ---
EXAMINATION TYPE: XR chest 2V DATE OF EXAM: 01/06/2023 12:19 PM COMPARISON: Chest radiographs from 02/13/2022 TECHNIQUE: XR chest 2V Frontal and lateral views of the chest. CLINICAL INDICATION:Male, 72 years old with history of dysrhythmia; FINDINGS: Lungs/Pleura: There is no evidence of pleural effusion, focal consolidation, or pneumothorax. Pulmonary vascularity: Unremarkable. Heart/mediastinum: Cardiomediastinal silhouette is unremarkable. Musculoskeletal: No acute osseous pathology. IMPRESSION: No acute cardiopulmonary disease/process.
[2023-01-06 12:37] LABS: Albumin 3.9 g/dL (3.5-5.0); Calcium 9.3 mg/dL (8.4-10.2); Magnesium 1.9 mg/dL (1.6-2.3); Potassium 3.9 mmol/L (3.5-5.1); Total Bilirubin 1.1 mg/dL (0.2-1.3); Total Protein 6.2 g/dL (6.3-8.2)
[2023-01-06 12:40] LABS: Basophils % (A) 1 %; Eosinophils # (A) 0.3 k/uL (0-0.7); Eosinophils % (A) 6 %; HCT 46.2 % (39.0-53.0); HGB 16.6 gm/dL (13.0-17.5); Hyperchromasia Slight; Lymphocytes # (A) 1.2 k/uL (1.0-4.8); Lymphocytes % (A) 21 %; MCH 30.3 pg (25.0-35.0); MCHC 35.9 g/dL (31.0-37.0); MCV 84.4 fL (80.0-100.0); Mean Platelet Volume 8.9; Monocytes # (A) 0.4 k/uL (0-1.0); Monocytes % (A) 6 %; Neutrophils # (A) 3.6 k/uL (1.3-7.7); Neutrophils % (A) 64 %; Platelet Count 173 k/uL (150-450); RBC 5.47 m/uL (4.30-5.90); RDW 13.9 % (11.5-15.5); WBC 5.6 k/uL (3.8-10.6)
[2023-01-06 13:30] VITALS: RESP 19
[2023-01-06 14:52] VITALS: BP 116/82; PULSE 81; TEMP 97.8
== END 2023-01-06 14:52 | disposition home or self-care (01) ==
LOC: EC 11:19
DX: I48.91 Unspecified atrial fibrillation (principal); J45.909 Unspecified asthma, uncomplicated; I25.10 Atherosclerotic heart disease of native coronary artery without angina pectoris; K21.9 Gastro-esophageal reflux disease without esophagitis; I10 Essential (primary) hypertension; I25.2 Old myocardial infarction; M19.90 Unspecified osteoarthritis, unspecified site; E78.5 Hyperlipidemia, unspecified; E03.9 Hypothyroidism, unspecified; F41.9 Anxiety disorder, unspecified; F32.A Depression, unspecified; Z88.8 Allergy status to other drugs, medicaments and biological substances; Z79.890 Hormone replacement therapy; Z79.01 Long term (current) use of anticoagulants; Z79.899 Other long term (current) drug therapy
CPT/HCPCS: 36415; 71046; 80053; 83735; 84443; 84484; 85025; 85610; 85730; 93005; 96360; 96361; 99285

== ENCOUNTER → 2023-07-07 | Outpatient (CLI) | payer MEDICARE ==
--- NOTE | 2023-07-07 13:31 | US ---
EXAMINATION TYPE: US venous doppler duplex LE LT DATE OF EXAM: 07/07/2023 1:04 PM COMPARISON: NONE CLINICAL INDICATION: Male, 72 years old with history of M79.662 pain left leg; Pain left leg with sta nding. AFIB - patient on blood thinner SIDE PERFORMED: left TECHNIQUE: The lower extremity deep venous system is examined utilizing real time linear array sonog ezekiel with graded compression, doppler sonography and color-flow sonography. VESSELS IMAGED: Common Femoral Vein Deep Femoral Vein Greater Saphenous Vein * Femoral Vein Popliteal Vein Small Saphenous Vein * Proximal Calf Veins Posterior tibial veins (* superficial vessels) Left Leg: No evidence of DVT IMPRESSION: No evidence for DVT within the left lower extremity.
== END | disposition home or self-care (01) ==
LOC: RADUSWWP 12:36
PROVIDERS: ATTEND Family Medicine
DX: M79.662 Pain in left lower leg (principal); Z79.01 Long term (current) use of anticoagulants

== ENCOUNTER → 2023-09-08 | Outpatient (CLI) | payer MEDICARE ==
--- NOTE | 2023-09-10 21:31 | MR ---
EXAMINATION TYPE: MR lumbar spine wo con DATE OF EXAM: 09/08/2023 COMPARISON: None HISTORY: 73-year-old male M5 4.51, Low back pain into legs- mostly left side TECHNIQUE: Multiplanar, multisequence images of the lumbar spine were acquired without IV contrast. FINDINGS: Hypertrophic facet arthropathy mid to lower lumbar spine along with ligamentum flavum thickening, gre atest at L3-L4. Conus medullaris is normal. No suspicious bone marrow placement. Vertebral body heights are preserved. Hypertrophic facet arthropathy is present throughout. Degenerative grade 1 retrolisthesis L1-L2, L2-L3, L3-L4. Remaining alignment is maintained. Bulging disc and ligamentum flavum thickening contributes to mild spinal canal stenosis at L2-L3 and L4-L5. More moderate to severe spinal canal stenosis at L3-L4. On the right, changes result in moderate neuroforaminal stenosis at L1-L2, L2-L3, and L3-L4. Also at L5-S1, right lateral disc bulge may impress onto the extraforaminal right L5 nerve root. On the left, changes result in moderate to severe neuroforaminal stenosis at L3-L4 and moderate at L2 -L3, L4-L5, and L5-S1. Ectatic upper abdominal aorta up to 2.8 cm. IMPRESSION: 1. Geop-co-givlorcn multilevel degenerative disc disease along with hypertrophic facet arthropathy an d scattered ligamentum flavum thickening. 2. Degenerative grade 1 retrolisthesis L1-L2, L2-L3, and L3-L4. 3. Changes result in moderate to severe focal spinal canal stenosis at L3-L4. Only mild at L2-L3 and L4-L5. 4. Variable neuroforaminal stenoses as outlined above. Also, right lateral disc osteophyte complex at L5-S1 may impress onto the extraforaminal right L5 nerve root. Moderate to severe left neuroforamina l stenosis L3-L4.
== END | disposition home or self-care (01) ==
LOC: RADMRIMAIN 13:43
PROVIDERS: ATTEND Physical Medicine & Rehabilitation
DX: M47.816 Spondylosis without myelopathy or radiculopathy, lumbar region (principal); M51.36 Other intervertebral disc degeneration, lumbar region; M43.16 Spondylolisthesis, lumbar region; M48.062 Spinal stenosis, lumbar region with neurogenic claudication; M99.73 Connective tissue and disc stenosis of intervertebral foramina of lumbar region; M25.78 Osteophyte, vertebrae
CPT/HCPCS: 72148

== ENCOUNTER 2023-11-09 11:18 | Day surgery (SDC) | payer MEDICARE ==
[2023-11-08 10:41] VITALS: BMI 30.8
[~2023-11-09 11:18] MED LIST changes: +ALPRAZolam 0.25 MG TAB PO PRN; +ALPRAZolam 0.5 MG TAB PO PRN; +ATORVASTATIN 80 MG TAB PO ONE; +HEPARIN SODIUM,PORCINE (1 ML) 2,500 UNIT in SODIUM CHLORIDE 0.9% 250 ML IRRIGATION PRN; +HEPARIN SODIUM,PORCINE 10,000 UNIT in SODIUM CHLORIDE 0.9% 1,000 ML IRRIGATION PRN; -LACTATED RINGERS 1,000 ML IV SCH; -LIDOCAINE 1% 20 ML VIAL (10MG/ML) FOR IV START INTRADERMA PRN; +NITROGLYCERIN SL TABS 0.4 MG TAB SUBLINGUAL PRN
[2023-11-09] MEDS: SODIUM CHLORIDE 0.9% 1,000 ML in EMPTY BAG 1 BAG IV ONE (12:15)
[2023-11-09] MEDS: ASPIRIN 325 MG TAB PO ONE (12:16)
[2023-11-09 12:27] VITALS: RESP 18; TEMP 97.6
[2023-11-09] MEDS ORDERED: LIDOCAINE 1% INJ 10MG/ML (20 ML MDV) ONE (12:44)
[2023-11-09] MEDS ORDERED: VERAPAMIL 2.5 MG/ML 2 ML AMP ONE (12:45)
[2023-11-09] MEDS ORDERED: HEPARIN SODIUM 1,000 UN/ML (10ML VL) ONE (12:45)
[2023-11-09] MEDS: MIDAZOLAM 2 MG/2 ML VIAL IVP ONE (13:09)
[2023-11-09] MEDS: LIDOCAINE 1% INJ 10MG/ML (20 ML MDV) SQ ONE (13:11)
[2023-11-09] MEDS: VERAPAMIL SYRINGE (5 MG/10 ML) INTRAARTER ONE (13:12)
[2023-11-09] MEDS: HEPARIN SODIUM 1,000 UN/ML (10ML VL) IV ONE (13:14)
[2023-11-09] MEDS: IOPAMIDOL-370 100ML BTL INJ ONE (13:27)
[2023-11-09] MEDS ORDERED: RX INFO: IV CONTRAST WAS GIVEN 1 EACH MISC MISCELLANE PRN (13:33)
--- NOTE | 2023-11-09 13:36 | P.PCN ---
Date of Procedure: 11/09/23 Operative Findings: CARDIAC CATHETERIZATION PERFORMING PHYSICIAN: Janes Harris MD, RPVI PROCEDURE PERFORMED: 1. Selective right and left coronary angiogram 2. Left heart catheterization 3. iFR of the LCx 4. Ultrasound-guided access of the right radial artery INDICATION: Abnormal myocardial perfusion imaging in this 73-year-old gentleman was known to have CAD with prior stenting of the RCA and weighs going also to undergo noncardiac surgery COMPLICATION: None APPROACH: Right radial artery LEVEL OF SEDATION: Moderate with a sedation length of 16 minutes PROCEDURE DESCRIPTION: After obtaining an informed consent, the patient was brought to cardiac orthodontic lab technician. Local anesthesia was performed using lidocaine subcutaneously. The right radial artery was cannulated using Seldinger technique, the guidewire passed easily, following that we advanced a 5-Maldivian sheath dilator assembly, the wire and dilator were removed and sheath was flushed. Following that, 2 mg of verapamil along with 5000 unit heparin were given. Selective right and left coronary angiogram using a 6-Maldivian JR4 and JL 3.5 catheters. Following that we did left heart catheterization using 6-Maldivian pigtail catheter. After that I did Doppler wire measurement of the left circumflex. After zeroing the Doppler wire and equalizing between the Doppler wire and guiding catheter which was JL 3.5 short tip guiding catheter left main was engaged and the OM1 w as wired. And the iFR came in to be ischemic at 0.89 The procedure was completed there was no complication. SELECTIVE CORONARY ANGIOGRAM: The right coronary artery: Large caliber vessel and a dominant vessel. The RCA stented in the midportion and the stent is patent Left main: Short but angiographically normal. Bifurcates into an LCx and LAD The left circumflex: Large caliber vessel codominant vessel. The LCx proximity gives rise into an OM1 which has eccentric lesion I committed to be flow-limiting by Doppler wire. OM 2 has mild disease only. The circumflex after that distally appears to be having mild disease only and bifurcates into PDA and PLV branches The left anterior descending artery: Large caliber vessel. The proximal LAD has mild disease only. The mid and distal LAD appears to be angiographically normal. HEMODYNAMICS: The LVEDP was 15 mmHg was no significant degree and across aortic valve CONCLUSION: 1. Patent stent in the mid right coronary artery 2. Severe disease involving OM1 of the left circumflex POSTPROCEDURE MANAGEMENT: Medical treatment at this point and consider PCI if he is symptomatic.
[2023-11-09] MEDS ORDERED: SODIUM CHLORIDE 0.9% 1,000 ML IV SCH (13:45)
[2023-11-09 18:25] VITALS: BP 114/77; PULSE 82
== END 2023-11-09 18:03 | disposition home or self-care (01) ==
LOC: CATHCVL 11:18
PROVIDERS: ATTEND Internal Medicine Interventional Cardiology
DX: I25.10 Atherosclerotic heart disease of native coronary artery without angina pectoris (principal); I10 Essential (primary) hypertension; G47.33 Obstructive sleep apnea (adult) (pediatric); I48.21 Permanent atrial fibrillation; Z95.5 Presence of coronary angioplasty implant and graft; Z79.899 Other long term (current) drug therapy; Z98.890 Other specified postprocedural states
CPT/HCPCS: 93458; 93799; 76937; C1769 ×2; C1894; J2250; J2001; J1644; Q9967

== ENCOUNTER → 2024-02-06 | Outpatient (CLI) | payer MEDICARE ==
[2024-02-06 18:38] LABS: HCT 52.3 % (39.6-50.0); HGB 17.8 g/dL (13.0-17.0); NRBC Per 100 WBC 0 X 10*3/uL (0.00-0.01); Platelet Count 211 X 10*3/uL (140-440); RBC 5.94 X 10*6/uL (4.40-5.60); RDW 14.4 % (11.5-14.5); WBC 7.01 X 10*3/uL (4.50-10.00)
[2024-02-06 20:25] LABS: Blood Urea Nitrogen 10.4 mg/dL (9.0-27.0); Chloride 102 mmol/L (96-109); Potassium 4.7 mmol/L (3.5-5.5); Sodium 143 mmol/L (135-145)
== END | disposition home or self-care (01) ==
LOC: LABPAT 08:52
PROVIDERS: ATTEND Internal Medicine Interventional Cardiology
DX: Z01.812 Encounter for preprocedural laboratory examination (principal); I25.10 Atherosclerotic heart disease of native coronary artery without angina pectoris
CPT/HCPCS: 36415; 80051; 82565; 84520; 85027

== ENCOUNTER 2024-02-14 05:44 | Day surgery (SDC) | payer MEDICARE ==
[2024-02-12 12:22] VITALS: BMI 31.1
[2024-02-14] MEDS: ASPIRIN 81 MG ONE (05:19)
[2024-02-14] MEDS: SODIUM CHLORIDE 0.9% 1,000 ML IV ONE (05:43)
[~2024-02-14 05:44] MED LIST changes: -ATORVASTATIN 80 MG TAB PO ONE; +SODIUM CHLORIDE 0.9% 1,000 ML in EMPTY BAG 1 BAG IV SCH
[2024-02-14] MEDS ORDERED: VERAPAMIL 2.5 MG/ML 2 ML AMP ONE (06:06)
[2024-02-14] MEDS ORDERED: LIDOCAINE 1% INJ 10MG/ML (20 ML MDV) ONE (06:06)
[2024-02-14] MEDS ORDERED: HEPARIN SODIUM 1,000 UN/ML (10ML VL) ONE (06:06)
[2024-02-14] MEDS ORDERED: fentaNYL (PF) 50 MCG/ML 2 ML AMP ONE (06:07)
[2024-02-14 06:11] VITALS: RESP 16; TEMP 97.8
[2024-02-14] MEDS: LIDOCAINE 1% INJ 10MG/ML (20 ML MDV) SQ ONE (06:31)
[2024-02-14] MEDS: VERAPAMIL SYRINGE (5 MG/10 ML) INTRAARTER ONE (06:32)
[2024-02-14] MEDS: MIDAZOLAM 2 MG/2 ML VIAL IVP ONE (06:32)
[2024-02-14] MEDS: fentaNYL (PF) 50 MCG/1 ML VIAL IVP ONE (06:32)
[2024-02-14] MEDS: HEPARIN SODIUM 1,000 UN/ML (10ML VL) IVP ONE (06:35)
[2024-02-14] MEDS: IOPAMIDOL-370 100ML BTL INTRATHECA ONE (06:49)
[2024-02-14] MEDS ORDERED: RX INFO: IV CONTRAST WAS GIVEN 1 EACH MISC MISCELLANE PRN (06:50)
--- NOTE | 2024-02-14 06:56 | P.PCN ---
Date of Procedure: 02/14/24 Operative Findings: CARDIAC CATHETERIZATION PERFORMING PHYSICIAN: Janes Harris MD, RPVI PROCEDURE PERFORMED: 1. Selective right and left coronary angiogram 2. Left heart catheterization 3. IFR of OM1 4. Ultrasound-guided access of the right radial artery INDICATION: The patient is a 73-year-old gentleman with a prior stenting of the RCA and known to have intermediate to severe disease involving the first obtuse marginal branch of the left circumflex who continues to be symptomatic. He was brought today to undergo a heart catheterization and FFR of the OM1 COMPLICATION: None APPROACH: Right radial artery LEVEL OF SEDATION: Moderate with a sedation length of 17 minutes PROCEDURE DESCRIPTION: After obtaining an informed consent, the patient was brought to cardiac pathology laboratory director. Local anesthesia was performed using lidocaine subcutaneously. The right radial artery was cannulated using Seldinger technique, the guidewire passed easily, following that we advanced a 5-Albanian sheath dilator assembly, the wire and dilator were removed and sheath was flushed. Following that, 2 mg of verapamil along with 5000 unit heparin were given. Selective right and left coronary angiogram using a 6-Albanian JR4 and JL 3.5 catheters. Following that we did left heart catheterization using 6-Albanian pigtail catheter. After that I decided to do an IFR of the first obtuse marginal branch. After zeroing of the LAD wire and equalizing between the Doppler wire and guiding catheter the left main was engaged and subsequently OM1 was wired. We did an IFR and that came in to be at 0.93. The procedure was completed with no complication The procedure was completed there was no complication. SELECTIVE CORONARY ANGIOGRAM: The right coronary artery: Large-caliber vessel and a dominant vessel with patent stent in the mid RCA Left main: Is angiographically normal The left circumflex: Large-caliber vessel and codominant vessel. Gives rise into an OM1 which has intermediate lesion appears to be nonflow limiting by Doppler wire The left anterior descending artery: Medium to large caliber vessel appears to have mild disease only and does not reach the apex. HEMODYNAMICS: LVEDP was 6 mmHg with no significant gradient across aortic valve CONCLUSION: 1. Patent stent in the mid RCA 2. Intermediate disease involving OM1. The disease is not flow-limiting by Doppler wire POSTPROCEDURE MANAGEMENT: Medical treatment
[2024-02-14] MEDS ORDERED: SODIUM CHLORIDE 0.9% 1,000 ML IV SCH (07:00)
[2024-02-14] MEDS ORDERED: ASPIRIN 325 MG TAB PO ONE (07:00)
[2024-02-14 08:47] VITALS: PULSE 77
[2024-02-14 16:26] VITALS: BP 108/68
== END 2024-02-14 11:07 | disposition home or self-care (01) ==
LOC: CATHCVL 05:44
PROVIDERS: ATTEND Internal Medicine Interventional Cardiology
DX: I25.10 Atherosclerotic heart disease of native coronary artery without angina pectoris (principal); I10 Essential (primary) hypertension; E78.5 Hyperlipidemia, unspecified; G47.33 Obstructive sleep apnea (adult) (pediatric); I48.21 Permanent atrial fibrillation; Z79.01 Long term (current) use of anticoagulants; Z82.49 Family history of ischemic heart disease and other diseases of the circulatory system; Z95.5 Presence of coronary angioplasty implant and graft
CPT/HCPCS: 93458; 93799; 76937; C1887; C1769 ×2; C1894; J2250; J2001; J1644; Q9967; J3010